=== PATIENT | male | born 1980 | race Two or more races ===

== ENCOUNTER 2019-04-18 16:57 | Emergency (ER) | payer SELFPAY ==
[~2019-04-18] VITALS: Ht 167.6 cm; Wt 68.0 kg
[2019-04-18 17:00] VITALS: BP 142/93
--- NOTE | 2019-04-18 17:38 | PHYS DOC ---
Past Medical History Past Medical History: No Pertinent History Past Surgical History: No Surgical History Alcohol Use: Heavy Drug Use: None Adult General Chief Complaint Chief Complaint: HAND PROBLEM HPI HPI Patient is a 38 year old male that presents with right wrist pain has been ongoing since Friday. The patient states that on Friday he slammed his wrist in a door. Pain is 5 out of 10 in severity. Review of Systems Review of Systems Constitutional: Denies fever or chills [] Eyes: Denies change in visual acuity, redness, or eye pain [] HENT: Denies nasal congestion or sore throat [] Respiratory: Denies cough or shortness of breath [] Cardiovascular: No additional information not addressed in HPI [] GI: Denies abdominal pain, nausea, vomiting, bloody stools or diarrhea [] : Denies dysuria or hematuria [] Musculoskeletal: Reports R wrist pain. Integument: Denies rash or skin lesions [] Neurologic: Denies headache, focal weakness or sensory changes [] Endocrine: Denies polyuria or polydipsia [] Complete systems were reviewed and found to be within normal limits, except as documented in this note. Allergies Allergies Allergies Coded Allergies Type Severity Reaction Last Updated Verified No Known Drug Allergies 11/29/15 No Physical Exam Physical Exam Constitutional: Well developed, well nourished, no acute distress, non-toxic a ppearance. [] HENT: Normocephalic, atraumatic, bilateral external ears normal, oropharynx moist, no oral exudates, nose normal. [] Eyes: PERRLA, EOMI, conjunctiva normal, no discharge. [] Neck: Normal range of motion, no tenderness, supple, no stridor. [] Cardiovascular:Heart rate regular rhythm, no murmur [] Lungs & Thorax: Bilateral breath sounds clear to auscultation [] Abdomen: Bowel sounds normal, soft, no tenderness, no masses, no pulsatile masses. [] Skin: Warm, dry, no erythema, no rash. [] Back: No tenderness, no CVA tenderness. [] Extremities: Edema and tenderness to R wrist. Has snuff box tenderness. Neurologic: Alert and oriented X 3, normal motor function, normal sensory function, no focal deficits noted. [] Psychologic: Affect normal, judgement normal, mood normal. [] Current Patient Data Vital Signs Vital Signs Date Time Temp Pulse Resp B/P (MAP) Pulse Ox O2 Delivery O2 Flow Rate FiO2 04/18/19 17:00 99.1 63 16 142/93 (109) 96 Room Air 99.1 EKG EKG [] Radiology/Procedures Radiology/Procedures [][facility] [address] [place] [address] IMAGING REPORT Signed PATIENT: MANUEL DUMONTACCOUNT: [id number] : 1980 LOCATION: ER AGE: 38 SEX: M EXAM STATUS: REG ER ORD. PHYSICIAN: LANI CHIANG APRN REASON: wrist trauma, PT INDICATED PAIN LOCATION IS MEADIAL ULNAR WRIST PAIN PROCEDURE: WRIST 3V RIGHT Exam: Right wrist 3 views INDICATION: Trauma TECHNIQUE: Frontal, lateral and oblique views of the right wrist Comparisons: None FINDINGS: Mildly displaced ossific density in the posterior carpus seen best on lateral view. Subtle linear lucency at the ulnar styloid. Joint spaces are well-maintained. Soft tissues are unremarkable. Bone mineralization is normal. IMPRESSION: 1. Findings likely representing minimally displaced triquetral fracture 2. Subtle linear lucency at the ulnar styloid may represent nondisplaced fracture. Correlate with point tenderness. Electronically signed by: Kathy Pang MD (04/18/2019 5:45 PM) [facility] DICTATED and SIGNED BY: KATHY PANG MD DATE: 04/18/19 4215 Course & Med Decision Making Course & Med Decision Making Pertinent Labs and Imaging studies reviewed. (See chart for details) Will get imaging. Findings likely representing minimally displaced triquetral fracture 2. Subtle linear lucency at the ulnar styloid may represent nondisplaced fracture. Correlate with point tenderness. Will place in splint and have follow up with ortho. [place] Disclaimer Dragon Disclaimer This electronic medical record was generated, in whole or in part, using a voice recognition dictation system. Departure Departure Impression: Primary Impression: Triquetral fracture Disposition: 01 HOME, SELF-CARE Condition: STABLE Referrals: NO PCP (PCP) ROSINA BATES II, MD Patient Instructions: Wrist Fracture Additional Instructions: Thank you for visiting [facility]. We appreciate you trusting us with your care. If any additional problems come up don't hesitate to return to visit us. Please follow up with your primary care provider so they can plan additional care if needed and know about the problem that you had. If symptoms worsen come back to the Emergency Department. Any concerning symptoms that start such as chest pain, shortness of air, weakness or numbness on one side of the body, running high fevers or any other concerning symptoms return to the ER. Please fill your medications at any pharmacy and follow the prescription instructions. Please follow up with orthopedic doctor this week. Scripts Hydrocodone/Apap 5-325 (NORCO 5-325 TABLET) 1 Each Tablet 1 TAB PO PRN Q6HRS PRN for PAIN for 3 Days, #10 TAB 0 Refills Prov: LANI CHIANG APRN 04/18/19 Problem Qualifiers Primary Impression: Triquetral fracture Encounter type: initial encounter Fracture type: closed Fracture alignme nt: nondisplaced Laterality: right Qualified Codes: S62.114A - Nondispl aced fracture of triquetrum [cuneiform] bone, right wrist, initial encounter for closed fracture LANI CHIANG APRN Apr 18, 2019 17:38
--- NOTE | 2019-04-18 17:48 | RAD ---
Exam: Right wrist 3 views INDICATION: Trauma TECHNIQUE: Frontal, lateral and oblique views of the right wrist Comparisons: None FINDINGS: Mildly displaced ossific density in the posterior carpus seen best on lateral view. Subtle linear lucency at the ulnar styloid. Joint spaces are well-maintained. Soft tissues are unremarkable. Bone mineralization is normal. IMPRESSION: 1. Findings likely representing minimally displaced triquetral fracture 2. Subtle linear lucency at the ulnar styloid may represent nondisplaced fracture. Correlate with point tenderness. Electronically signed by: Kathy Freeman MD (04/18/2019 5:45 PM) [facility]
[2019-04-18] MEDS ORDERED: HYDR-3164 PO (18:06)
== END 2019-04-18 18:26 | disposition home or self-care (01) ==
LOC: ER 16:57
DX: S62.114A Nondisplaced fracture of triquetrum [cuneiform] bone, right wrist, initial encounter for closed fracture (principal); F10.20 Alcohol dependence, uncomplicated; Y90.9 Presence of alcohol in blood, level not specified; W22.8XXA Striking against or struck by other objects, initial encounter; Y93.89 Activity, other specified; Y92.89 Other specified places as the place of occurrence of the external cause; Y99.8 Other external cause status
CPT/HCPCS: 29125; 73110; 99284

== ENCOUNTER 2019-05-23 15:42 | Inpatient (IN) | payer SELFPAY ==
[~2019-05-23] VITALS: Ht 165.1 cm; Wt 68.0 kg
[~2019-05-23 15:42] MED LIST: HYDR-3164 PO
--- NOTE | 2019-05-23 15:58 | PHYS DOC ---
Past Medical History Past Medical History: No Pertinent History (LUKE CHIANG APRN) Past Surgical History: No Surgical History (LUKE CHIANG APRN) Alcohol Use: Heavy Drug Use: None (LUKE CHIANG APRN) Attending Signature I have participated in the care of this patient and I have reviewed and agree with all pertinent clinical information above including history, exam, and recommendations. (RONEN JAMESON MD) Adult General Chief Complaint Chief Complaint: LOWER EXTREMITY SWELLING HPI HPI Patient is a 38 year old male that presents to the emergency department for left knee pain that started this morning when he woke up. He is unable to bend his left knee and complains of pain and swelling to the knee. The knee is also warm to touch. He rates his pain as 10 out of 10 in severity and sharp and throbbing. Denies any medical history, denies any trauma to the knee. (LUKE CHIANG APRN) Review of Systems Review of Systems Constitutional: Denies fever or chills [] Eyes: Denies change in visual acuity, redness, or eye pain [] HENT: Denies nasal congestion or sore throat [] Respiratory: Denies cough or shortness of breath [] Cardiovascular: No additional information not addressed in HPI [] GI: Denies abdominal pain, nausea, vomiting, bloody stools or diarrhea [] : Denies dysuria or hematuria [] Musculoskeletal: Reports L knee pain. Integument: Denies rash or skin lesions [] Neurologic: Denies headache, focal weakness or sensory changes [] Endocrine: Denies polyuria or polydipsia [] Complete systems were reviewed and found to be within normal limits, except as documented in this note. (LUKE CHIANG APRN) Current Medications Current Medications Current Medications Medications (Trade) Dose Ordered Sig/Heidy Start Time Stop Time Status Last Admin Dose Admin Colchicine (Colcrys) 1.2 mg 1X STAT 05/23/19 17:45 05/23/19 17:51 DC 05/23/19 17:58 1.2 MG Ketorolac Tromethamine (Toradol 30mg Vial) 30 mg 1X ONCE 05/23/19 17:45 05/23/19 17:51 DC 05/23/19 17:58 30 MG Lidocaine HCl 20 ml 1X ONCE 05/23/19 16:30 05/23/19 16:31 DC 05/23/19 16:15 20 ML Morphine Sulfate (Morphine Sulfate) 4 mg 1X ONCE 05/23/19 16:15 05/23/19 16:16 DC 05/23/19 16:13 4 MG Sodium Chloride 1,000 ml @ 1,000 mls/hr 1X ONCE 05/23/19 16:00 05/23/19 16:59 DC 05/23/19 16:15 1,000 MLS/HR (RONEN JAMESON MD) Allergies Allergies Allergies Coded Allergies Type Severity Reaction Last Updated Verified No Known Drug Allergies 11/29/15 No (RONEN JAMESON MD) Physical Exam Physical Exam Constitutional: Well developed, well nourished, no acute distress, non-toxic appearance. [] HENT: Normocephalic, atraumatic, bilateral external ears normal, oropharynx moist, no oral exudates, nose normal. [] Eyes: PERRLA, EOMI, conjunctiva normal, no discharge. [] Neck: Normal range of motion, no tenderness, supple, no stridor. [] Cardiovascular:Heart rate regular rhythm, no murmur [] Lungs & Thorax: Bilateral breath sounds clear to auscultation [] Abdomen: Bowel sounds normal, soft, no tenderness, no masses, no pulsatile masses. [] Skin: Warm, dry, no erythema, no rash. [] Back: No tenderness, no CVA tenderness. [] Extremities: Tenderness to left knee with edema, erythema, and warmth. Reduced range of motion. Neurologic: Alert and oriented X 3, normal motor function, normal sensory fun ction, no focal deficits noted. [] Psychologic: Affect normal, judgement normal, mood normal. [] (LUKE CHIANG APRN) Current Patient Data Vital Signs Vital Signs Date Time Temp Pulse Resp B/P (MAP) Pulse Ox O2 Delivery O2 Flow Rate FiO2 05/23/19 17:47 70 14 130/94 (106) 97 Room Air 05/23/19 15:45 99.6 99.6 (RONEN JAMESON MD) Lab Values Laboratory Tests Test 05/23/19 16:00 05/23/19 16:20 White Blood Count 11.4 x10^3/uL (4.0-11.0) H Red Blood Count 4.81 x10^6/uL (4.30-5.70) Hemoglobin 15.3 g/dL (13.0-17.5) Hematocrit 44.0 % (39.0-53.0) Mean Corpuscular Volume 91 fL (79-100) Mean Corpuscular Hemoglobin 32 pg (25-35) Mean Corpuscular Hemoglobin Concent 35 g/dL (31-37) Red Cell Distribution Width 13.0 % (11.5-14.5) Platelet Count 250 x10^3/uL (140-400) Neutrophils (%) (Auto) 78 % (31-73) H Lymphocytes (%) (Auto) 11 % (24-48) L Monocytes (%) (Auto) 10 % (0-9) H Eosinophils (%) (Auto) 0 % (0-3) Basophils (%) (Auto) 1 % (0-3) Neutrophils # (Auto) 8.9 x10^3/uL (1.8-7.7) H Lymphocytes # (Auto) 1.3 x10^3/uL (1.0-4.8) Monocytes # (Auto) 1.1 x10^3/uL (0.0-1.1) Eosinophils # (Auto) 0.0 x10^3/uL (0.0-0.7) Basophils # (Auto) 0.1 x10^3/uL (0.0-0.2) Sodium Level 143 mmol/L (136-145) Potassium Level 3.8 mmol/L (3.5-5.1) Chloride Level 104 mmol/L (98-107) Carbon Dioxide Level 25 mmol/L (21-32) Anion Gap 14 (6-14) Blood Urea Nitrogen 8 mg/dL (8-26) Creatinine 1.0 mg/dL (0.7-1.3) Estimated GFR (Cockcroft-Gault) 83.6 BUN/Creatinine Ratio 8 (6-20) Glucose Level 110 mg/dL (70-99) H Lactic Acid Level 1.3 mmol/L (0.4-2.0) Uric Acid 8.7 mg/dL (3.5-7.2) H Calcium Level 9.1 mg/dL (8.5-10.1) Total Bilirubin 0.9 mg/dL (0.2-1.0) Aspartate Amino Transferase (AST) 47 U/L (15-37) H Alanine Aminotransferase (ALT) 82 U/L (16-63) H Alkaline Phosphatase 110 U/L (46-116) Total Protein 8.2 g/dL (6.4-8.2) Albumin 4.3 g/dL (3.4-5.0) Albumin/Globulin Ratio 1.1 (1.0-1.7) Body Fluid Source Synovial Body Fluid Color Yellow Body Fluid Clarity Turbid Body Fluid Nucleated Cells 05619 /cmm (Not Body Fluid Mononuclear WBCs (%) 6 % Body Fluid Polymorphonuclear Cells 94 % Body Fluid Total RBCs Counted 520 /cmm (Not Established) Laboratory Tests 05/23/19 16:00 Laboratory Tests 05/23/19 16:00 (RONEN JAMESON MD) Lab Values Laboratory Tests Test 05/23/19 16:00 05/23/19 16:20 White Blood Count 11.4 x10^3/uL (4.0-11.0) H Red Blood Count 4.81 x10^6/uL (4.30-5.70) Hemoglobin 15.3 g/dL (13.0-17.5) Hematocrit 44.0 % (39.0-53.0) Mean Corpuscular Volume 91 fL (79-100) Mean Corpuscular Hemoglobin 32 pg (25-35) Mean Corpuscular Hemoglobin Concent 35 g/dL (31-37) Red Cell Distribution Width 13.0 % (11.5-14.5) Platelet Count 250 x10^3/uL (140-400) Neutrophils (%) (Auto) 78 % (31-73) H Lymphocytes (%) (Auto) 11 % (24-48) L Monocytes (%) (Auto) 10 % (0-9) H Eosinophils (%) (Auto) 0 % (0-3) Basophils (%) (Auto) 1 % (0-3) Neutrophils # (Auto) 8.9 x10^3/uL (1.8-7.7) H Lymphocytes # (Auto) 1.3 x10^3/uL (1.0-4.8) Monocytes # (Auto) 1.1 x10^3/uL (0.0-1.1) Eosinophils # (Auto) 0.0 x10^3/uL (0.0-0.7) Basophils # (Auto) 0.1 x10^3/uL (0.0-0.2) Sodium Level 143 mmol/L (136-145) Potassium Level 3.8 mmol/L (3.5-5.1) Chloride Level 104 mmol/L (98-107) Carbon Dioxide Level 25 mmol/L (21-32) Anion Gap 14 (6-14) Blood Urea Nitrogen 8 mg/dL (8-26) Creatinine 1.0 mg/dL (0.7-1.3) Estimated GFR (Cockcroft-Gault) 83.6 BUN/Creatinine Ratio 8 (6-20) Glucose Level 110 mg/dL (70-99) H Lactic Acid Level 1.3 mmol/L (0.4-2.0) Uric Acid 8.7 mg/dL (3.5-7.2) H Calcium Level 9.1 mg/dL (8.5-10.1) Total Bilirubin 0.9 mg/dL (0.2-1.0) Aspartate Amino Transferase (AST) 47 U/L (15-37) H Alanine Aminotransferase (ALT) 82 U/L (16-63) H Alkaline Phosphatase 110 U/L (46-116) Total Protein 8.2 g/dL (6.4-8.2) Albumin 4.3 g/dL (3.4-5.0) Albumin/Globulin Ratio 1.1 (1.0-1.7) Body Fluid Source Synovial Body Fluid Color Yellow Body Fluid Clarity Turbid Body Fluid Nucleated Cells 26230 /cmm (Not Body Fluid Mononuclear WBCs (%) 6 % Body Fluid Polymorphonuclear Cells 94 % Body Fluid Total RBCs Counted 520 /cmm (Not Established) Laboratory Tests 05/23/19 16:00 Laboratory Tests 05/23/19 16:00 (LUKE CHIANG APRN) EKG EKG [] (LUKE CHIANG APRN) Radiology/Procedures Radiology/Procedures Performed a Knee aspiration to the L knee with Dr. Jameson at bedside. Washed knee with Iodine and then injected 3 mL of 2% lidocaine. Aspirated lateral side 22 mL of cloudy yellow fluid. No complications. Sent to labs for cultures. [address] [place] [address] IMAGING REPORT Signed PATIENT: DASIA DUMONTSTEVEACCOUNT: [id number] : 1980 LOCATION: ER AGE: 38 SEX: M EXAM STATUS: REG ER ORD. PHYSICIAN: LUKE CHIANG APRN REASON: l knee pain, edema PROCEDURE: KNEE LEFT 3V 3 view left knee HISTORY: Left knee pain. FINDINGS: Joint spaces are intact. Small density overlying the medial joint compartment on the oblique view is likely overlapping tibial spine. No definite acute fracture is seen. No aggressive bone destruction. May be a suprapatellar joint effusion. Soft tissues are otherwise unremarkable. IMPRESSION: 1. Probable joint effusion. 2. No definite acute fracture. Small bone density overlying the medial tibial plateau on the oblique view is likely overlying tibial spine. 3. Could consider outpatient MRI for further evaluation, particularly if symptoms do not improve. Electronically signed by: Luke Segundo MD (05/23/2019 4:56 PM) [facility] DICTATED and SIGNED BY: LUKE SEGUNDO MD DATE: 05/23/191655 (LUKE CHIANG APRN) Course & Med Decision Making Course & Med Decision Making Pertinent Labs and Imaging studies reviewed. (See chart for details) Will get X-ray, labs, and give supportive care. Will also perform an aspiration of the left knee to send off for cultures. Cells of 55,500 with polymorph # of 94%. Discussed with Dr. Manning who requests admission to rule out septic joint. Will also order Vanc. Uric Acid is 8.7. Discussed with Dr. Perdomo who accepts admission ([id number]). (LUKE CHIANG APRN) Dragon Disclaimer Dragon Disclaimer This electronic medical record was generated, in whole or in part, using a voice recognition dictation system. (LUKE CHIANG APRN) Departure Departure Impression: Primary Impression: Knee pain, left Disposition: ADMITTED INPATIENT Admitting Physician: JERICHO (LUKE CHIANG APRN) Condition: STABLE Referrals: NO PCP (PCP) Problem Qualifiers Primary Impression: Knee pain, left Chronicity: acute Qualified Codes: M25.562 - Pain in left knee LUKE CHIANG APRN May 23, 2019 15:58 RONEN JAMESON MD May 24, 2019 06:52
[2019-05-23] MEDS ORDERED: IV NORMAL SALINE 1000ML BAG 1,000 ML IV ONE (16:00)
[2019-05-23] MEDS ORDERED: MORPHINE SULFATE 4 MG/ML VIAL. IV ONE (16:15)
[2019-05-23 16:21] LABS: BASO # 0.1 x10^3/uL (0.0-0.2); BASO % 1 % (0-3); EOS % 0 % (0-3); HEMOGLOBIN 15.3 g/dL (13.0-17.5); LYMPH # 1.3 x10^3/uL (1.0-4.8); LYMPH % 11 % (24-48); MEAN CORPUSCULAR HEMOGLOBIN 32 pg (25-35); MEAN CORPUSCULAR HGB CONC 35 g/dL (31-37); MEAN CORPUSCULAR VOLUME 91 fL (79-100); MONO # 1.1 x10^3/uL (0.0-1.1); MONO % 10 % (0-9); NEUT # 8.9 x10^3/uL (1.8-7.7); NEUT % 78 % (31-73); PLATELET COUNT 250 x10^3/uL (140-400); RED BLOOD COUNT 4.81 x10^6/uL (4.30-5.70); WHITE BLOOD COUNT 11.4 x10^3/uL (4.0-11.0)
[2019-05-23] MEDS ORDERED: LIDOCAINE 2% 20 ML VIAL. IJ ONE (16:30)
[2019-05-23 16:43] LABS: CALCIUM 9.1 mg/dL (8.5-10.1); GFR 83.6; POTASSIUM 3.8 mmol/L (3.5-5.1)
[2019-05-23 16:49] LABS: ALBUMIN 4.3 g/dL (3.4-5.0); ALBUMIN/GLOBULIN RATIO 1.1 (1.0-1.7); TOTAL BILIRUBIN 0.9 mg/dL (0.2-1.0); TOTAL PROTEIN 8.2 g/dL (6.4-8.2)
--- NOTE | 2019-05-23 16:59 | RAD ---
3 view left knee HISTORY: Left knee pain. FINDINGS: Joint spaces are intact. Small density overlying the medial joint compartment on the oblique view is likely overlapping tibial spine. No definite acute fracture is seen. No aggressive bone destruction. May be a suprapatellar joint effusion. Soft tissues are otherwise unremarkable. IMPRESSION: 1. Probable joint effusion. 2. No definite acute fracture. Small bone density overlying the medial tibial plateau on the oblique view is likely overlying tibial spine. 3. Could consider outpatient MRI for further evaluation, particularly if symptoms do not improve. Electronically signed by: Luke Segundo MD (05/23/2019 4:56 PM) [facility]
[2019-05-23] MEDS ORDERED: KETOROLAC 30 MG/ML VIAL. IM ONE (17:45)
[2019-05-23] MEDS ORDERED: COLCHICINE 0.6 MG TABLET PO STA (17:45)
[2019-05-23 17:46] LABS: BF CLARITY TURBID; BF COLOR YELLOW; BF MON % 6 %; BF PMN % 94 %; BF RBC COUNT 520 /cmm (Not Established); BF SOURCE SYNOVIAL; BF WBC COUNT 55500 /cmm (Not Established)
[2019-05-23] MEDS ORDERED: ACETAMINOPHEN 500 MG TABLET PO PRN (18:15)
[2019-05-23] MEDS ORDERED: HYDROcodone/APAP 5/325MG 1 TAB TABLET PO PRN (18:15)
[2019-05-23] MEDS ORDERED: cloNIDine HCL 0.1 MG TABLET PO PRN (18:15)
[2019-05-23] MEDS ORDERED: ONDANSETRON PF 4 MG/2 ML VIAL. IVP PRN (18:15)
[2019-05-23] MEDS ORDERED: ONDANSETRON PF 4 MG/2 ML VIAL. IV PRN (18:15)
[2019-05-23] MEDS ORDERED: ZOLPIDEM 5 MG TABLET. PO PRN (18:15)
[2019-05-23] MEDS ORDERED: MORPHINE SULFATE 2 MG/ML VIAL. IV PRN ×2 (18:15)
[2019-05-23] MEDS ORDERED: VANCOMYCIN 1.75 GM in IV NORMAL SALINE 500ML BAG 500 ML IV ONE (18:30)
[2019-05-23 19:00] VITALS: BP 112/77
--- NOTE | 2019-05-23 19:38 | PDOC1 ---
History and Physical Date of Admission Date of Admission DATE: 05/23/19 TIME: 19:33 Identification/Chief Complaint Chief Complaint left knee pain upon waking up Source Source: Caregiver, Chart review, Patient History of Present Illness History of Present Illness make but speaks some croatian, he woke up this AM with acute left knee pain, no trauma or injury, NO signif similar episodes, NO home meds to reconcile. 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 and drained approx 20 cc turbid yellow fluid and sent to lab with crystal etc to check, uric acid in serum 8,.7, no hx gout known, GIven colcrys 1.2 and empiric abx for "septic joint' Past Medical History Cardiovascular: No pertinent hx Pulmonary: No pertinent hx GI: No pertinent hx Heme/Onc: No pertinent hx Hepatobiliary: No pertinent hx Psych: No pertinent hx Rheumatologic: No pertinent hx Infectious disease: No pertinent hx ENT: No pertinent hx Renal/: No pertinent hx Endocrine: No pertinent hx Dermatology: No pertinent hx Past Surgical History Past Surgical History: No pertinent history Family History Family History: No Significant Social History Smoke: No ALCOHOL: none Drugs: None Current Problem List Problem List Problems Medical Problems: (1) Knee pain, left Status: Acute Current Medications Current Medications Current Medications Morphine Sulfate (Morphine Sulfate) 4 mg 1X ONCE IV Last administered on 05/23/19at 16:13; Start 05/23/19 at 16:15; Stop 05/23/19 at 16:16; Status DC Sodium Chloride 1,000 ml @ 1,000 mls/hr 1X ONCE IV Last administered on 05/23/19at 16:15; Start 05/23/19 at 16:00; Stop 05/23/19 at 16:59; Status DC Lidocaine HCl 20 ml 1X ONCE IJ Last administered on 05/23/19at 16:15; Start 1 at 16:30; Stop 05/23/19 at 16:31; Status DC Colchicine (Colcrys) 1.2 mg 1X STAT PO Last administered on 05/23/19at 17:58; Start 05/23/19 at 17:45; Stop 05/23/19 at 17:51; Status DC Ketorolac Tromethamine (Toradol 30mg Vial) 30 mg 1X ONCE IM Last administered on 10/13/19at 17:58; Start 05/23/19 at 17:45; Stop 05/23/19 at 17:51; Status DC Vancomycin HCl (Vanco Per Pharmacy) 1 each PRN DAILY PRN MC SEE COMMENTS; Start 05/23/19 at 18:15; Status UNV Naproxen (Naprosyn) 500 mg BID PO ; Start 05/23/19 at 21:00 Acetaminophen/ Hydrocodone Bitart (Lortab 5/325) 1 tab PRN Q6HRS PRN PO MODERATE-SEVERE PAIN; Start 05/23/19 at 18:15 Acetaminophen (Tylenol) 500 mg PRN Q6HRS PRN PO MILD PAIN / TEMP; Start 05/23/19 at 18:15 Ondansetron HCl (Zofran) 4 mg PRN Q6HRS PRN IVP NAUSEA/VOMITING; Start 05/23/19 at 18:15 Zolpidem Tartrate (Ambien) 5 mg PRN QHS PRN PO INSOMNIA, MAY REPEAT IN 1HR; Start 05/23/19 at 18:15 Morphine Sulfate (Morphine Sulfate) 2 mg PRN Q2HR PRN IV PAIN; Start 05/23/19 at 18:15 Clonidine HCl (Catapres) 0.1 mg PRN Q1HR PRN PO HYPERTENSION; Start 05/23/19 at 18:15 Ondansetron HCl (Zofran) 4 mg PRN Q8HRS PRN IV NAUSEA/VOMITING; Start 05/23/19 at 18:15; Stop 05/24/19 at 18:14; Status UNV Morphine Sulfate (Morphine Sulfate) 2 mg PRN Q2HR PRN IV PAIN; Start 05/23/19 at 18:15; Stop 05/24/19 at 18:14; Status UNV Vancomycin HCl 1.75 gm/Sodium Chloride 500 ml @ 250 mls/hr 1X ONCE IV ; Start 05/23/19 at 18:30; Stop 05/23/19 at 20:29 Active Scripts Active [place] 5-325 Tablet (Acetaminophen/Hydrocodone Bitart) 1 Each Tablet 1 Tab PO PRN Q6HRS PRN 3 Days Allergies Allergies: Coded Allergies: No Known Drug Allergies (Unverified , 11/29/15) ROS Review of System as per HPI< rest 14 pt neg Physical Exam General: Alert, Oriented X3, Cooperative, No acute distress HEENT: Atraumatic, PERRLA Lungs: Clear to auscultation, Normal air movement Heart: S1S2, RRR, no thrills, no rubs, no gallops Cardiovascular: S1, S2 Abdomen: Normal bowel sounds, Soft, No tenderness, No hepatosplenomegaly, No masses Male Genitals Exam: normal genitalia, normal prostate Rectal Exam: not examined PELVIC: Nml ext genitalia Extremities: No clubbing, No cyanosis, No edema, Normal pulses Skin: Other (left knee mild swelling and aspiration site, lateral knee identifiable, dressing on, full ROM) Neuro: Normal gait, Normal speech, Strength at 5/5 X4 ext, Normal tone, Sensation intact, Cranial nerves 3-12 NL, Reflexes 2+ Psych/Mental Status: Mental status NL, Mood NL Vitals Vitals Vital Signs Date Time Temp Pulse Resp B/P (MAP) Pulse Ox O2 Delivery O2 Flow Rate FiO2 05/23/19 17:47 70 14 130/94 (106) 97 Room Air 05/23/19 15:45 99.6 99.6 Labs Labs Laboratory Tests Test 05/23/19 16:00 05/23/19 16:20 White Blood Count 11.4 x10^3/uL (4.0-11.0) Red Blood Count 4.81 x10^6/uL (4.30-5.70) Hemoglobin 15.3 g/dL (13.0-17.5) Hematocrit 44.0 % (39.0-53.0) Mean Corpuscular Volume 91 fL (79-100) Mean Corpuscular Hemoglobin 32 pg (25-35) Mean Corpuscular Hemoglobin Concent 35 g/dL (31-37) Red Cell Distribution Width 13.0 % (11.5-14.5) Platelet Count 250 x10^3/uL (140-400) Neutrophils (%) (Auto) 78 % (31-73) Lymphocytes (%) (Auto) 11 % (24-48) Monocytes (%) (Auto) 10 % (0-9) Eosinophils (%) (Auto) 0 % (0-3) Basophils (%) (Auto) 1 % (0-3) Neutrophils # (Auto) 8.9 x10^3/uL (1.8-7.7) Lymphocytes # (Auto) 1.3 x10^3/uL (1.0-4.8) Monocytes # (Auto) 1.1 x10^3/uL (0.0-1.1) Eosinophils # (Auto) 0.0 x10^3/uL (0.0-0.7) Basophils # (Auto) 0.1 x10^3/uL (0.0-0.2) Sodium Level 143 mmol/L (136-145) Potassium Level 3.8 mmol/L (3.5-5.1) Chloride Level 104 mmol/L (98-107) Carbon Dioxide Level 25 mmol/L (21-32) Anion Gap 14 (6-14) Blood Urea Nitrogen 8 mg/dL (8-26) Creatinine 1.0 mg/dL (0.7-1.3) Estimated GFR (Cockcroft-Gault) 83.6 BUN/Creatinine Ratio 8 (6-20) Glucose Level 110 mg/dL (70-99) Lactic Acid Level 1.3 mmol/L (0.4-2.0) Uric Acid 8.7 mg/dL (3.5-7.2) Calcium Level 9.1 mg/dL (8.5-10.1) Total Bilirubin 0.9 mg/dL (0.2-1.0) Aspartate Amino Transf (AST/SGOT) 47 U/L (15-37) Alanine Aminotransferase (ALT/SGPT) 82 U/L (16-63) Alkaline Phosphatase 110 U/L (46-116) Total Protein 8.2 g/dL (6.4-8.2) Albumin 4.3 g/dL (3.4-5.0) Albumin/Globulin Ratio 1.1 (1.0-1.7) Body Fluid Source Synovial Body Fluid Color Yellow Body Fluid Clarity Turbid Body Fluid Nucleated Cells 59734 /cmm (Not Body Fluid Mononuclear WBCs (%) 6 % Body Fluid Polymorphonuclear Cells 94 % Body Fluid Total RBCs Counted 520 /cmm (Not Established) Laboratory Tests Test 05/23/19 16:00 05/23/19 16:20 White Blood Count 11.4 x10^3/uL (4.0-11.0) Red Blood Count 4.81 x10^6/uL (4.30-5.70) Hemoglobin 15.3 g/dL (13.0-17.5) Hematocrit 44.0 % (39.0-53.0) Mean Corpuscular Volume 91 fL (79-100) Mean Corpuscular Hemoglobin 32 pg (25-35) Mean Corpuscular Hemoglobin Concent 35 g/dL (31-37) Red Cell Distribution Width 13.0 % (11.5-14.5) Platelet Count 250 x10^3/uL (140-400) Neutrophils (%) (Auto) 78 % (31-73) Lymphocytes (%) (Auto) 11 % (24-48) Monocytes (%) (Auto) 10 % (0-9) Eosinophils (%) (Auto) 0 % (0-3) Basophils (%) (Auto) 1 % (0-3) Neutrophils # (Auto) 8.9 x10^3/uL (1.8-7.7) Lymphocytes # (Auto) 1.3 x10^3/uL (1.0-4.8) Monocytes # (Auto) 1.1 x10^3/uL (0.0-1.1) Eosinophils # (Auto) 0.0 x10^3/uL (0.0-0.7) Basophils # (Auto) 0.1 x10^3/uL (0.0-0.2) Sodium Level 143 mmol/L (136-145) Potassium Level 3.8 mmol/L (3.5-5.1) Chloride Level 104 mmol/L (98-107) Carbon Dioxide Level 25 mmol/L (21-32) Anion Gap 14 (6-14) Blood Urea Nitrogen 8 mg/dL (8-26) Creatinine 1.0 mg/dL (0.7-1.3) Estimated GFR (Cockcroft-Gault) 83.6 BUN/Creatinine Ratio 8 (6-20) Glucose Level 110 mg/dL (70-99) Lactic Acid Level 1.3 mmol/L (0.4-2.0) Uric Acid 8.7 mg/dL (3.5-7.2) Calcium Level 9.1 mg/dL (8.5-10.1) Total Bilirubin 0.9 mg/dL (0.2-1.0) Aspartate Amino Transf (AST/SGOT) 47 U/L (15-37) Alanine Aminotransferase (ALT/SGPT) 82 U/L (16-63) Alkaline Phosphatase 110 U/L (46-116) Total Protein 8.2 g/dL (6.4-8.2) Albumin 4.3 g/dL (3.4-5.0) Albumin/Globulin Ratio 1.1 (1.0-1.7) Body Fluid Source Synovial Body Fluid Color Yellow Body Fluid Clarity Turbid Body Fluid Nucleated Cells 44602 /cmm (Not Body Fluid Mononuclear WBCs (%) 6 % Body Fluid Polymorphonuclear Cells 94 % Body Fluid Total RBCs Counted 520 /cmm (Not Established) VTE Prophylaxis Ordered VTE Prophylaxis Devices: Yes VTE Pharmacological Prophylaxi: Yes Assessment/Plan Assessment/Plan r.o possible septic left knee, difftls include infectious vs inflammatory, CPPD vs gout - await fluid cxs, crystals etc - I did start naproxen BID ANTONI to help with swelling and pain and can treat gout too Elevated uric acid 8.7 - I did start colcrys GIVEN ACUTE nature - seen in gout, empiric abx - i did consult ID - vanc for now Dw at bedside, no home meds to reconcile Reg diet, non tele floor FULL CODE ELISE NAJERA MD May 23, 2019 19:38
[2019-05-23] MEDS: VANCOMYCIN PER PHARMACY MC PRN (20:01)
--- NOTE | 2019-05-23 20:02 | NUR ---
Pharmacy Vancomycin Dosing Note S:Consulted to monitor and dose vancomycin started 05/23/19. O:MANUEL DUMONT is a 38 year old M with R/O SEPTIC JOINT . Height: 5 feet, 5 inches Weight: 68.533264 kg [place] Body Weight: 61.50 Adjusted Body Weight: 64.10 Dosing Weight: Actual Other Antibiotics: LABS: Last BUN: 8 Last Creatinine: 1.0 Creatinine Clearance: 90 mL/min Last WBC: 11.4 Last Procalcitonin: Tmax (past 24 hours): 99.6 Microbiology: I/O: Drug Levels: Last level: on at Last dose given 05/23/19 at 1947 Vancomycin Dosing: Loading Dose: 1750 mg x1 Dosing Weight: Actual Target Trough: 15-20 A: Based on: Body weight and renal function P: 1. After loading dose, start Vancomycin 1000 mg IV q12h 2. Follow up Trough level on 05/25/19 at 0730 3. Pharmacy will continue to monitor, follow and adjust therapy as needed. MASON DREW RPH, 05/23/192001
[2019-05-23] MEDS: NAPROXEN 500 MG TABLET PO SCH (21:04)
[2019-05-23] MEDS ORDERED: diphenhydrAMINE HCL 25 MG CAPSULE PO PRN (22:30)
[2019-05-23 23:00] VITALS: BP 111/70
[2019-05-24 03:00] VITALS: BP 97/66
[2019-05-24 07:00] VITALS: BP 127/79
--- NOTE | 2019-05-24 08:07 | PDOC ---
Infectious Disease Note Vital Sign Vital Signs Vital Signs Date Time Temp Pulse Resp B/P (MAP) Pulse Ox O2 Delivery O2 Flow Rate FiO2 05/24/19 03:00 98.5 64 18 97/66 (76) 97 Room Air 98.5 Labs Lab Laboratory Tests Test 05/23/19 16:00 05/23/19 16:20 White Blood Count 11.4 x10^3/uL (4.0-11.0) Red Blood Count 4.81 x10^6/uL (4.30-5.70) Hemoglobin 15.3 g/dL (13.0-17.5) Hematocrit 44.0 % (39.0-53.0) Mean Corpuscular Volume 91 fL (79-100) Mean Corpuscular Hemoglobin 32 pg (25-35) Mean Corpuscular Hemoglobin Concent 35 g/dL (31-37) Red Cell Distribution Width 13.0 % (11.5-14.5) Platelet Count 250 x10^3/uL (140-400) Neutrophils (%) (Auto) 78 % (31-73) Lymphocytes (%) (Auto) 11 % (24-48) Monocytes (%) (Auto) 10 % (0-9) Eosinophils (%) (Auto) 0 % (0-3) Basophils (%) (Auto) 1 % (0-3) Neutrophils # (Auto) 8.9 x10^3/uL (1.8-7.7) Lymphocytes # (Auto) 1.3 x10^3/uL (1.0-4.8) Monocytes # (Auto) 1.1 x10^3/uL (0.0-1.1) Eosinophils # (Auto) 0.0 x10^3/uL (0.0-0.7) Basophils # (Auto) 0.1 x10^3/uL (0.0-0.2) Sodium Level 143 mmol/L (136-145) Potassium Level 3.8 mmol/L (3.5-5.1) Chloride Level 104 mmol/L (98-107) Carbon Dioxide Level 25 mmol/L (21-32) Anion Gap 14 (6-14) Blood Urea Nitrogen 8 mg/dL (8-26) Creatinine 1.0 mg/dL (0.7-1.3) Estimated GFR (Cockcroft-Gault) 83.6 BUN/Creatinine Ratio 8 (6-20) Glucose Level 110 mg/dL (70-99) Lactic Acid Level 1.3 mmol/L (0.4-2.0) Uric Acid 8.7 mg/dL (3.5-7.2) Calcium Level 9.1 mg/dL (8.5-10.1) Total Bilirubin 0.9 mg/dL (0.2-1.0) Aspartate Amino Transf (AST/SGOT) 47 U/L (15-37) Alanine Aminotransferase (ALT/SGPT) 82 U/L (16-63) Alkaline Phosphatase 110 U/L (46-116) Total Protein 8.2 g/dL (6.4-8.2) Albumin 4.3 g/dL (3.4-5.0) Albumin/Globulin Ratio 1.1 (1.0-1.7) Body Fluid Source Synovial Body Fluid Color Yellow Body Fluid Clarity Turbid Body Fluid Nucleated Cells 81645 /cmm (Not Body Fluid Mononuclear WBCs (%) 6 % Body Fluid Polymorphonuclear Cells 94 % Body Fluid Total RBCs Counted 520 /cmm (Not Established) Objective Assessment pt seen, consult dictated Plan Plan of Care / CHERRIE STACY MD May 24, 2019 08:07
[2019-05-24 08:10] LABS: CREATININE 0.9 mg/dL (0.7-1.3); GFR 94.4
--- NOTE | 2019-05-24 08:40 | PDOC2 ---
CONSULT Date of Consult Date of Consult DATE: 05/24/19 TIME: 08:35 Reason for Consult Reason for Consult: left knee septic joint vs gout Identification/Chief Complaint Chief Complaint left knee pain spontaneous joint swelling Source Source: Chart review History of Present Illness Reason for Visit: I spoke to ER last night who had aspirated cloudy fluid with 55,000 WBCs and 95% polys. Possible septic joint, although uric acid also high, so acute gout flare also in the differential. I recommended admission with empiric antibiotics and plan for arthroscopic lavage. 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 He works in [employer]. No injury to the knee. Spontaneous swelling yesterday. Low-grade temperature. Severe knee pain, inability to walk Past Medical History Cardiovascular: No pertinent hx Pulmonary: No pertinent hx GI: No pertinent hx Heme/Onc: No pertinent hx Hepatobiliary: No pertinent hx Psych: No pertinent hx Rheumatologic: No pertinent hx Infectious disease: No pertinent hx ENT: No pertinent hx Renal/: No pertinent hx Endocrine: No pertinent hx Dermatology: No pertinent hx Past Surgical History Past Surgical History He denies prior surgery via the machine tool operator Past Surgical History: No pertinent history Family History Family History Family history of diabetes per the machine tool operator Family History: Diabetes Social History Social History He lives with his and 1 child. He works in [employer] No ALCOHOL: none Drugs: None Lives: with Family Current Problem List Problem List Problems Medical Problems: (1) Knee pain, left Status: Acute Current Medications Current Medications Current Medications Morphine Sulfate (Morphine Sulfate) 4 mg 1X ONCE IV Last administered on 05/23/19at 16:13; Start 05/23/19 at 16:15; Stop 05/23/19 at 16:16; Status DC Sodium Chloride 1,000 ml @ 1,000 mls/hr 1X ONCE IV Last administered on 05/23/19at 16:15; Start 05/23/19 at 16:00; Stop 05/23/19 at 16:59; Status DC Lidocaine HCl 20 ml 1X ONCE IJ Last administered on 05/23/19at 16:15; Start 05/23/19 at 16:30; Stop 05/23/19 at 16:31; Status DC Colchicine (Colcrys) 1.2 mg 1X STAT PO Last administered on 05/23/19at 17:58; Start 05/23/19 at 17:45; Stop 05/23/19 at 17:51; Status DC Ketorolac Tromethamine (Toradol 30mg Vial) 30 mg 1X ONCE IM Last administered on 05/23/19at 17:58; Start 05/23/19 at 17:45; Stop 05/23/19 at 17:51; Status DC Vancomycin HCl (Vanco Per Pharmacy) 1 each PRN DAILY PRN MC SEE COMMENTS Last administered on 05/23/19at 20:01; Start 05/23/19 at 18:15 Naproxen (Naprosyn) 500 mg BID PO Last administered on 05/23/19at 21:04; Start 05/23/19 at 21:00 Acetaminophen/ Hydrocodone Bitart (Lortab 5/325) 1 tab PRN Q6HRS PRN PO MODERATE-SEVERE PAIN; Start 05/23/19 at 18:15 Acetaminophen (Tylenol) 500 mg PRN Q6HRS PRN PO MILD PAIN / TEMP; Start 05/23/19 at 18:15 Ondansetron HCl (Zofran) 4 mg PRN Q6HRS PRN IVP NAUSEA/VOMITING; Start 05/23/19 at 18:15 Zolpidem Tartrate (Ambien) 5 mg PRN QHS PRN PO INSOMNIA, MAY REPEAT IN 1HR; Start 05/23/19 at 18:15 Morphine Sulfate (Morphine Sulfate) 2 mg PRN Q2HR PRN IV PAIN Last administered on 05/23/19at 21:05; Start 05/23/19 at 18:15 Clonidine HCl (Catapres) 0.1 mg PRN Q1HR PRN PO HYPERTENSION; Start 05/23/19 at 18:15 Ondansetron HCl (Zofran) 4 mg PRN Q8HRS PRN IV NAUSEA/VOMITING; Start 05/23/19 at 18:15; Stop 05/24/19 at 18:14; Status UNV Morphine Sulfate (Morphine Sulfate) 2 mg PRN Q2HR PRN IV PAIN; Start 05/23/19 at 18:15; Stop 05/24/19 at 18:14; Status UNV Vancomycin HCl 1.75 gm/Sodium Chloride 500 ml @ 250 mls/hr 1X ONCE IV Last administered on 05/23/19at 19:47; Start 05/23/19 at 18:30; Stop 05/23/19 at 20:29; Status DC Colchicine (Colcrys) 0.6 mg DAILY PO ; Start 05/24/19 at 09:00 Vancomycin HCl 1 gm/Sodium Chloride 250 ml @ 250 mls/hr Q12H IV ; Start 05/24/19 at 08:00 Vancomycin HCl (Vancomycin Trough Level) 1 each 1X ONCE MC ; Start 05/25/19 at 07:30; Stop 05/25/19 at 07:31 Diphenhydramine HCl (Benadryl) 25 mg PRN Q6HRS PRN PO ITCHING Last administered on 05/23/19at 22:40; Start 05/23/19 at 22:30 Influenza Virus Vaccine Quadrival (Afluria Quad 2019-20 (3yr Up) Syringe) 0.5 ml ONCE ONCE VAX IM ; Start 05/24/19 at 09:00; Stop 05/24/19 at 09:01 Cefepime HCl (Maxipime) 1 gm Q12HR IVP ; Start 05/24/19 at 09:00 Active Scripts Active [place] 5-325 Tablet (Acetaminophen/Hydrocodone Bitart) 1 Each Tablet 1 Tab PO PRN Q6HRS PRN 3 Days Allergies Allergies: Coded Allergies: No Known Drug Allergies (Unverified , 11/29/15) ROS Hematological and Lymphatic: No: Blood Clots Respiratory: No: Cough, SOB with excertion Cardiovascular: No Chest Pain Gastrointestinal: No Nausea, No Vomiting, No Diarrhea Musculoskeletal: Yes Joint Pain, Yes Joint Swelling Physical Exam General: Alert, Cooperative HEENT: Atraumatic Lungs: Normal air movement Heart: Regular rate Abdomen: Soft Extremities: Other (there is a left knee effusion and slight warmth. There was no traumatic wound, there is slight blood from the aspiration site on the lateral knee. There is not any focal prepatellar bursitis or bursal swelling, this all seems to be joint swelling/joint effusion. The knee is tender and slightly warm but not erythematous. Distal light touch sensation is intact. Minimal motion to the knee, any motion is painful. Sensory and motor function seem intact but motor function is limited by pain) Skin: No breakdown, No significant lesion Neuro: Normal speech, Sensation intact Vitals VITALS Vital Signs Date Time Temp Pulse Resp B/P (MAP) Pulse Ox O2 Delivery O2 Flow Rate FiO2 05/24/19 03:00 98.5 64 18 97/66 (76) 97 Room Air 98.5 Labs Labs Laboratory Tests Test 05/23/19 16:00 05/23/19 16:20 05/24/19 06:55 White Blood Count 11.4 x10^3/uL (4.0-11.0) Red Blood Count 4.81 x10^6/uL (4.30-5.70) Hemoglobin 15.3 g/dL (13.0-17.5) Hematocrit 44.0 % (39.0-53.0) Mean Corpuscular Volume 91 fL (79-100) Mean Corpuscular Hemoglobin 32 pg (25-35) Mean Corpuscular Hemoglobin Concent 35 g/dL (31-37) Red Cell Distribution Width 13.0 % (11.5-14.5) Platelet Count 250 x10^3/uL (140-400) Neutrophils (%) (Auto) 78 % (31-73) Lymphocytes (%) (Auto) 11 % (24-48) Monocytes (%) (Auto) 10 % (0-9) Eosinophils (%) (Auto) 0 % (0-3) Basophils (%) (Auto) 1 % (0-3) Neutrophils # (Auto) 8.9 x10^3/uL (1.8-7.7) Lymphocytes # (Auto) 1.3 x10^3/uL (1.0-4.8) Monocytes # (Auto) 1.1 x10^3/uL (0.0-1.1) Eosinophils # (Auto) 0.0 x10^3/uL (0.0-0.7) Basophils # (Auto) 0.1 x10^3/uL (0.0-0.2) Sodium Level 143 mmol/L (136-145) Potassium Level 3.8 mmol/L (3.5-5.1) Chloride Level 104 mmol/L (98-107) Carbon Dioxide Level 25 mmol/L (21-32) Anion Gap 14 (6-14) Blood Urea Nitrogen 8 mg/dL (8-26) Creatinine 1.0 mg/dL (0.7-1.3) 0.9 mg/dL (0.7-1.3) Estimated GFR (Cockcroft-Gault) 83.6 94.4 BUN/Creatinine Ratio 8 (6-20) Glucose Level 110 mg/dL (70-99) Lactic Acid Level 1.3 mmol/L (0.4-2.0) Uric Acid 8.7 mg/dL (3.5-7.2) Calcium Level 9.1 mg/dL (8.5-10.1) Total Bilirubin 0.9 mg/dL (0.2-1.0) Aspartate Amino Transf (AST/SGOT) 47 U/L (15-37) Alanine Aminotransferase (ALT/SGPT) 82 U/L (16-63) Alkaline Phosphatase 110 U/L (46-116) Total Protein 8.2 g/dL (6.4-8.2) Albumin 4.3 g/dL (3.4-5.0) Albumin/Globulin Ratio 1.1 (1.0-1.7) Body Fluid Source Synovial Body Fluid Color Yellow Body Fluid Clarity Turbid Body Fluid Nucleated Cells 79948 /cmm (Not Body Fluid Mononuclear WBCs (%) 6 % Body Fluid Polymorphonuclear Cells 94 % Body Fluid Total RBCs Counted 520 /cmm (Not Established) Laboratory Tests Test 05/23/19 16:00 05/23/19 16:20 05/24/19 06:55 White Blood Count 11.4 x10^3/uL (4.0-11.0) Red Blood Count 4.81 x10^6/uL (4.30-5.70) Hemoglobin 15.3 g/dL (13.0-17.5) Hematocrit 44.0 % (39.0-53.0) Mean Corpuscular Volume 91 fL (79-100) Mean Corpuscular Hemoglobin 32 pg (25-35) Mean Corpuscular Hemoglobin Concent 35 g/dL (31-37) Red Cell Distribution Width 13.0 % (11.5-14.5) Platelet Count 250 x10^3/uL (140-400) Neutrophils (%) (Auto) 78 % (31-73) Lymphocytes (%) (Auto) 11 % (24-48) Monocytes (%) (Auto) 10 % (0-9) Eosinophils (%) (Auto) 0 % (0-3) Basophils (%) (Auto) 1 % (0-3) Neutrophils # (Auto) 8.9 x10^3/uL (1.8-7.7) Lymphocytes # (Auto) 1.3 x10^3/uL (1.0-4.8) Monocytes # (Auto) 1.1 x10^3/uL (0.0-1.1) Eosinophils # (Auto) 0.0 x10^3/uL (0.0-0.7) Basophils # (Auto) 0.1 x10^3/uL (0.0-0.2) Sodium Level 143 mmol/L (136-145) Potassium Level 3.8 mmol/L (3.5-5.1) Chloride Level 104 mmol/L (98-107) Carbon Dioxide Level 25 mmol/L (21-32) Anion Gap 14 (6-14) Blood Urea Nitrogen 8 mg/dL (8-26) Creatinine 1.0 mg/dL (0.7-1.3) 0.9 mg/dL (0.7-1.3) Estimated GFR (Cockcroft-Gault) 83.6 94.4 BUN/Creatinine Ratio 8 (6-20) Glucose Level 110 mg/dL (70-99) Lactic Acid Level 1.3 mmol/L (0.4-2.0) Uric Acid 8.7 mg/dL (3.5-7.2) Calcium Level 9.1 mg/dL (8.5-10.1) Total Bilirubin 0.9 mg/dL (0.2-1.0) Aspartate Amino Transf (AST/SGOT) 47 U/L (15-37) Alanine Aminotransferase (ALT/SGPT) 82 U/L (16-63) Alkaline Phosphatase 110 U/L (46-116) Total Protein 8.2 g/dL (6.4-8.2) Albumin 4.3 g/dL (3.4-5.0) Albumin/Globulin Ratio 1.1 (1.0-1.7) Body Fluid Source Synovial Body Fluid Color Yellow Body Fluid Clarity Turbid Body Fluid Nucleated Cells 65921 /cmm (Not Body Fluid Mononuclear WBCs (%) 6 % Body Fluid Polymorphonuclear Cells 94 % Body Fluid Total RBCs Counted 520 /cmm (Not Established) Images Images Report reviewed, images independently reviewed. [facility] [address] [place], [place] [id number] IMAGING REPORT Signed PATIENT: DASIA DUMONTSTEVEACCOUNT: [id number] : 1980 LOCATION: ER AGE: 38 SEX: M EXAM STATUS: REG ER ORD. PHYSICIAN: LUKE CHIANG APRN REASON: l knee pain, edema PROCEDURE: KNEE LEFT 3V 3 view left knee HISTORY: Left knee pain. FINDINGS: Joint spaces are intact. Small density overlying the medial joint compartment on the oblique view is likely overlapping tibial spine. No definite acute fracture is seen. No aggressive bone destruction. May be a suprapatellar joint effusion. Soft tissues are otherwise unremarkable. IMPRESSION: 1. Probable joint effusion. 2. No definite acute fracture. Small bone density overlying the medial tibial plateau on the oblique view is likely overlying tibial spine. 3. Could consider outpatient MRI for further evaluation, particularly if symptoms do not improve. Electronically signed by: Luke Segundo MD (05/23/2019 4:56 PM) [facility] DICTATED and SIGNED BY: LUKE SEGUNDO MD DATE: 05/23/19 5839 Assessment/Plan Assessment/Plan Plan for left knee arthroscopy for infection, lavage and drainage today. I spoke to the patient via the machine tool operator about the differential which includes a septic knee joint, or severe gout attack. Arthroscopic lavage will make the knee feel better regardless of the diagnosis, and is definitely needed if the knee is infected which I believe it is. He would also need intravenous antibiotics for infection. I recommended he stay in the hospital on IV antibiotics until final cultures are obtained, and we can discharge him on the appropriate antibiotic. If all cultures remain negative and crystals are seen, than we would consider treatment for gout but his knee will feel a lot better with lavage of gout crystals. We talked about the potential risks of ongoing infection, scarring, bleeding, blood clots, or other potential surgical or anesthetic complications. He seemed most worried about having an anesthetic and that he would not wake up but I reassured him that general anesthesia in 2019 is relatively safe and I don't predict any issues with anesthesia. The left knee was marked by me. All of his questions about surgery were answered. He desires to proceed. Written consent was obtained. YANNICK CERVANTES MD May 24, 2019 08:40
[2019-05-24] MEDS: NAPROXEN 500 MG TABLET PO SCH ×2 (09:00→21:15)
[2019-05-24] MEDS ORDERED: FLU VAX QS 2019-20 (36MOS+)/PF 0.5 ML SYRINGE. VAX IM ONE (09:00)
[2019-05-24] MEDS ORDERED: COLCHICINE 0.6 MG TABLET PO SCH (09:00)
[2019-05-24] MEDS ORDERED: IV RINGERS,LACTATED 1000ML 1,000 ML IV SCH (09:03)
[2019-05-24] MEDS ORDERED: MORPHINE SULFATE 2 MG/ML VIAL. IV PRN (09:15)
[2019-05-24] MEDS ORDERED: fentaNYL PF VIAL 100 MCG/2 ML VIAL IV PRN ×2 (09:15)
[2019-05-24] MEDS ORDERED: HYDROmorphone 2 MG/ML VIAL IV PRN (09:15)
[2019-05-24] MEDS ORDERED: PROCHLORPERAZINE 10 MG/2 ML VIAL. IV PRN (09:15)
[2019-05-24] MEDS ORDERED: ONDANSETRON PF 4 MG/2 ML VIAL. IV PRN (09:15)
[2019-05-24] MEDS: CEFEPIME HCL IV Push 1 GM VIAL. IVP SCH ×2 (10:04→21:15)
[2019-05-24] MEDS: VANCOMYCIN 1 GM in IV NORMAL SALINE 250ML 250 ML IV SCH ×2 (10:04→20:03)
--- NOTE | 2019-05-24 10:26 | PDOC2 ---
CONSULT Date of Consult Date of Consult DATE: 05/24/19 TIME: 10:04 Reason for Consult Reason for Consult: Painful right knee since yesterday morning, when he awakened with painful, swollen knee with no reported trauma. Referring Physician Referring Physician: Dr Perdomo Identification/Chief Complaint Chief Complaint Painful right knee with swelling, erythema, and pain. Patient seen in ER and had aspiration of knee with reported yellow drainage. Source Source: Caregiver, Chart review, Patient History of Present Illness Reason for Visit: Possible infected right knee. Past Medical History Cardiovascular: No pertinent hx Pulmonary: No pertinent hx GI: No pertinent hx Heme/Onc: No pertinent hx Hepatobiliary: No pertinent hx Psych: No pertinent hx Rheumatologic: No pertinent hx Infectious disease: No pertinent hx ENT: No pertinent hx Renal/: No pertinent hx Endocrine: No pertinent hx Dermatology: No pertinent hx Past Surgical History Past Surgical History: No pertinent history Family History Family History: Alcohol Abuse, No Significant Social History No ALCOHOL: none Drugs: None Current Problem List Problem List Problems Medical Problems: (1) Knee pain, left Status: Acute Current Medications Current Medications Current Medications Morphine Sulfate (Morphine Sulfate) 4 mg 1X ONCE IV Last administered on 05/23/19at 16:13; Start 05/23/19 at 16:15; Stop 05/23/19 at 16:16; Status DC Sodium Chloride 1,000 ml @ 1,000 mls/hr 1X ONCE IV Last administered on 05/23/19at 16:15; Start 05/23/19 at 16:00; Stop 05/23/19 at 16:59; Status DC Lidocaine HCl 20 ml 1X ONCE IJ Last administered on 05/23/19at 16:15; Start 05/23/19 at 16:30; Stop 05/23/19 at 16:31; Status DC Colchicine (Colcrys) 1.2 mg 1X STAT PO Last administered on 05/23/19at 17:58; Start 05/23/19 at 17:45; Stop 05/23/19 at 17:51; Status DC Ketorolac Tromethamine (Toradol 30mg Vial) 30 mg 1X ONCE IM Last administered on 05/23/19at 17:58; Start 05/23/19 at 17:45; Stop 05/23/19 at 17:51; Status DC Vancomycin HCl (Vanco Per Pharmacy) 1 each PRN DAILY PRN MC SEE COMMENTS Last administered on 05/23/19at 20:01; Start 05/23/19 at 18:15 Naproxen (Naprosyn) 500 mg BID PO Last administered on 05/23/19at 21:04; Start 05/23/19 at 21:00 Acetaminophen/ Hydrocodone Bitart (Lortab 5/325) 1 tab PRN Q6HRS PRN PO MODERATE-SEVERE PAIN; Start 05/23/19 at 18:15 Acetaminophen (Tylenol) 500 mg PRN Q6HRS PRN PO MILD PAIN / TEMP; Start 05/23/19 at 18:15 Ondansetron HCl (Zofran) 4 mg PRN Q6HRS PRN IVP NAUSEA/VOMITING; Start 05/23/19 at 18:15 Zolpidem Tartrate (Ambien) 5 mg PRN QHS PRN PO INSOMNIA, MAY REPEAT IN 1HR; Start 05/23/19 at 18:15 Morphine Sulfate (Morphine Sulfate) 2 mg PRN Q2HR PRN IV PAIN Last administered on 05/23/19at 21:05; Start 05/23/19 at 18:15 Clonidine HCl (Catapres) 0.1 mg PRN Q1HR PRN PO HYPERTENSION; Start 05/23/19 at 18:15 Ondansetron HCl (Zofran) 4 mg PRN Q8HRS PRN IV NAUSEA/VOMITING; Start 05/23/19 at 18:15; Stop 05/24/19 at 18:14; Status UNV Morphine Sulfate (Morphine Sulfate) 2 mg PRN Q2HR PRN IV PAIN; Start 05/23/19 at 18:15; Stop 05/24/19 at 18:14; Status UNV Vancomycin HCl 1.75 gm/Sodium Chloride 500 ml @ 250 mls/hr 1X ONCE IV Last administered on 05/23/19at 19:47; Start 05/23/19 at 18:30; Stop 05/23/19 at 20:29; Status DC Colchicine (Colcrys) 0.6 mg DAILY PO ; Start 05/24/19 at 09:00 Vancomycin HCl 1 gm/Sodium Chloride 250 ml @ 250 mls/hr Q12H IV ; Start 05/24/19 at 08:00 Vancomycin HCl (Vancomycin Trough Level) 1 each 1X ONCE MC ; Start 05/25/19 at 07:30; Stop 05/25/19 at 07:31 Diphenhydramine HCl (Benadryl) 25 mg PRN Q6HRS PRN PO ITCHING Last administered on 05/23/19at 22:40; Start 05/23/19 at 22:30 Influenza Virus Vaccine Quadrival (Afluria Quad 2019-20 (3yr Up) Syringe) 0.5 ml ONCE ONCE VAX IM ; Start 05/24/19 at 09:00; Stop 05/24/19 at 09:05; Status DC Cefepime HCl (Maxipime) 1 gm Q12HR IVP ; Start 05/24/19 at 09:00 Ondansetron HCl (Zofran) 4 mg PRN Q6HRS PRN IV NAUSEA/VOMITING; Start 05/24/19 at 09:15; Stop 05/25/19 at 09:14 Fentanyl Citrate (Fentanyl 2ml Vial) 25 mcg PRN Q5MIN PRN IV MILD PAIN 1-3; Start 05/24/19 at 09:15; Stop 05/25/19 at 09:14 Fentanyl Citrate (Fentanyl 2ml Vial) 50 mcg PRN Q5MIN PRN IV MODERATE TO SEVERE PAIN; Start 05/24/19 at 09:15; Stop 05/25/19 at 09:14 Morphine Sulfate (Morphine Sulfate) 1 mg PRN Q10MIN PRN IV SEVERE PAIN 7-10; Start 05/24/19 at 09:15; Stop 05/25/19 at 09:14 Ringer's Solution 1,000 ml @ 30 mls/hr Q24H IV ; Start 05/24/19 at 09:03; Stop 05/24/19 at 21:02 Hydromorphone HCl (Dilaudid) 0.5 mg PRN Q10MIN PRN IV SEV PAIN, Second choice; Start 05/24/19 at 09:15; Stop 05/25/19 at 09:14 Prochlorperazine Edisylate (Compazine) 5 mg PACU PRN PRN IV NAUSEA, MRX1; Star t 05/24/19 at 09:15; Stop 05/25/19 at 09:14 Active Scripts Active [place] 5-325 Tablet (Acetaminophen/Hydrocodone Bitart) 1 Each Tablet 1 Tab PO PRN Q6HRS PRN 3 Days Allergies Allergies: Coded Allergies: No Known Drug Allergies (Unverified , 11/29/15) Physical Exam General: Alert, Oriented X3, Cooperative, moderate distress MUSCULOSKELETAL: Abnormal exam of left (On examiination of the left knee the knee is swollen and warm with effusion noted. On trying to check range of motion of the knee the patient was grimmacing and unable to move the knee. Patient able to flex and extend at the ankle and toes without pain. Right knee has full ROM without pain with collateral ligaments stable and ROM 0-120 degrees.) Vitals VITALS Vital Signs Date Time Temp Pulse Resp B/P (MAP) Pulse Ox O2 Delivery O2 Flow Rate FiO2 05/24/19 07:00 98.5 66 18 127/79 (95) 98 Room Air 98.5 Labs Labs Laboratory Tests Test 05/23/19 16:00 05/23/19 16:20 05/24/19 06:55 White Blood Count 11.4 x10^3/uL (4.0-11.0) Red Blood Count 4.81 x10^6/uL (4.30-5.70) Hemoglobin 15.3 g/dL (13.0-17.5) Hematocrit 44.0 % (39.0-53.0) Mean Corpuscular Volume 91 fL (79-100) Mean Corpuscular Hemoglobin 32 pg (25-35) Mean Corpuscular Hemoglobin Concent 35 g/dL (31-37) Red Cell Distribution Width 13.0 % (11.5-14.5) Platelet Count 250 x10^3/uL (140-400) Neutrophils (%) (Auto) 78 % (31-73) Lymphocytes (%) (Auto) 11 % (24-48) Monocytes (%) (Auto) 10 % (0-9) Eosinophils (%) (Auto) 0 % (0-3) Basophils (%) (Auto) 1 % (0-3) Neutrophils # (Auto) 8.9 x10^3/uL (1.8-7.7) Lymphocytes # (Auto) 1.3 x10^3/uL (1.0-4.8) Monocytes # (Auto) 1.1 x10^3/uL (0.0-1.1) Eosinophils # (Auto) 0.0 x10^3/uL (0.0-0.7) Basophils # (Auto) 0.1 x10^3/uL (0.0-0.2) Sodium Level 143 mmol/L (136-145) Potassium Level 3.8 mmol/L (3.5-5.1) Chloride Level 104 mmol/L (98-107) Carbon Dioxide Level 25 mmol/L (21-32) Anion Gap 14 (6-14) Blood Urea Nitrogen 8 mg/dL (8-26) Creatinine 1.0 mg/dL (0.7-1.3) 0.9 mg/dL (0.7-1.3) Estimated GFR (Cockcroft-Gault) 83.6 94.4 BUN/Creatinine Ratio 8 (6-20) Glucose Level 110 mg/dL (70-99) Lactic Acid Level 1.3 mmol/L (0.4-2.0) Uric Acid 8.7 mg/dL (3.5-7.2) Calcium Level 9.1 mg/dL (8.5-10.1) Total Bilirubin 0.9 mg/dL (0.2-1.0) Aspartate Amino Transf (AST/SGOT) 47 U/L (15-37) Alanine Aminotransferase (ALT/SGPT) 82 U/L (16-63) Alkaline Phosphatase 110 U/L (46-116) Total Protein 8.2 g/dL (6.4-8.2) Albumin 4.3 g/dL (3.4-5.0) Albumin/Globulin Ratio 1.1 (1.0-1.7) Body Fluid Source Synovial Body Fluid Color Yellow Body Fluid Clarity Turbid Body Fluid Nucleated Cells 31215 /cmm (Not Body Fluid Mononuclear WBCs (%) 6 % Body Fluid Polymorphonuclear Cells 94 % Body Fluid Total RBCs Counted 520 /cmm (Not Established) Laboratory Tests Test 05/23/19 16:00 05/23/19 16:20 05/24/19 06:55 White Blood Count 11.4 x10^3/uL (4.0-11.0) Red Blood Count 4.81 x10^6/uL (4.30-5.70) Hemoglobin 15.3 g/dL (13.0-17.5) Hematocrit 44.0 % (39.0-53.0) Mean Corpuscular Volume 91 fL (79-100) Mean Corpuscular Hemoglobin 32 pg (25-35) Mean Corpuscular Hemoglobin Concent 35 g/dL (31-37) Red Cell Distribution Width 13.0 % (11.5-14.5) Platelet Count 250 x10^3/uL (140-400) Neutrophils (%) (Auto) 78 % (31-73) Lymphocytes (%) (Auto) 11 % (24-48) Monocytes (%) (Auto) 10 % (0-9) Eosinophils (%) (Auto) 0 % (0-3) Basophils (%) (Auto) 1 % (0-3) Neutrophils # (Auto) 8.9 x10^3/uL (1.8-7.7) Lymphocytes # (Auto) 1.3 x10^3/uL (1.0-4.8) Monocytes # (Auto) 1.1 x10^3/uL (0.0-1.1) Eosinophils # (Auto) 0.0 x10^3/uL (0.0-0.7) Basophils # (Auto) 0.1 x10^3/uL (0.0-0.2) Sodium Level 143 mmol/L (136-145) Potassium Level 3.8 mmol/L (3.5-5.1) Chloride Level 104 mmol/L (98-107) Carbon Dioxide Level 25 mmol/L (21-32) Anion Gap 14 (6-14) Blood Urea Nitrogen 8 mg/dL (8-26) Creatinine 1.0 mg/dL (0.7-1.3) 0.9 mg/dL (0.7-1.3) Estimated GFR (Cockcroft-Gault) 83.6 94.4 BUN/Creatinine Ratio 8 (6-20) Glucose Level 110 mg/dL (70-99) Lactic Acid Level 1.3 mmol/L (0.4-2.0) Uric Acid 8.7 mg/dL (3.5-7.2) Calcium Level 9.1 mg/dL (8.5-10.1) Total Bilirubin 0.9 mg/dL (0.2-1.0) Aspartate Amino Transf (AST/SGOT) 47 U/L (15-37) Alanine Aminotransferase (ALT/SGPT) 82 U/L (16-63) Alkaline Phosphatase 110 U/L (46-116) Total Protein 8.2 g/dL (6.4-8.2) Albumin 4.3 g/dL (3.4-5.0) Albumin/Globulin Ratio 1.1 (1.0-1.7) Body Fluid Source Synovial Body Fluid Color Yellow Body Fluid Clarity Turbid Body Fluid Nucleated Cells 13107 /cmm (Not Body Fluid Mononuclear WBCs (%) 6 % Body Fluid Polymorphonuclear Cells 94 % Body Fluid Total RBCs Counted 520 /cmm (Not Established) Assessment/Plan Assessment/Plan 38 year old male with no reported injury to the left knee awakened yesterday morning with swollen, painful knee. Brought to [facility] ER with aspiration performed with reported yellow drainage received. Patient is NPO and is scheduled for Arthroscopic irrigation and debridement of right knee today per Dr Manning. Patients RN is acting as entry level electrician and procedure explained with risks and benefits. Body Nucleated fluids 55,500 Uric acid 8.7 with no reported history of gout. ABDIFATAH TAMEZ APRN May 24, 2019 10:26
[2019-05-24] MEDS: VANCOMYCIN PER PHARMACY MC PRN (11:17)
[2019-05-24] MEDS ORDERED: fentaNYL PF VIAL 100 MCG/2 ML VIAL ONE ×2 (11:27→11:51)
[2019-05-24] MEDS ORDERED: DEXAMETHASONE SOD PHOS 4 MG/ML VIAL ONE (11:27)
[2019-05-24] MEDS ORDERED: LIDOCAINE 2% PF 5 ML VIAL. ONE (11:27)
[2019-05-24] MEDS ORDERED: ONDANSETRON PF 4 MG/2 ML VIAL. ONE (11:27)
[2019-05-24] MEDS ORDERED: PROPOFOL 20 ML IV ONE (11:27)
[2019-05-24] MEDS ORDERED: MIDAZOLAM HCL/PF 2 MG/2 ML VIAL. ONE (11:27)
[2019-05-24] MEDS ORDERED: EPINEPHrine VIAL 30 MG/30 ML VIAL ONE (11:53)
[2019-05-24] MEDS ORDERED: BUPIVACAINE MPF 0.25% 30 ML VIAL. ONE ×2 (11:53→13:01)
[2019-05-24] MEDS ORDERED: 0.9 % SODIUM CHLORIDE 20 ML VIAL. IJ ONE (12:27)
--- NOTE | 2019-05-24 12:35 | NUR ---
SS following for discharge planning. SS reviewed pt chart. Pt is self pay pt. HCFS following for self pay status. Pt is from home and is currently on room air. SS will continue to follow for discharge planning.
[2019-05-24] MEDS ORDERED: KETOROLAC 30 MG/ML VIAL. ONE (12:46)
[2019-05-24] MEDS ORDERED: HYDROmorphone 2 MG/ML VIAL ONE (12:48)
[2019-05-24] MEDS ORDERED: SEVOFLURANE 61 TO 120 MINUTES. IH ONE (12:57)
--- NOTE | 2019-05-24 13:11 | PDOC4 ---
Operative Note Operative Note Date of Procedure: May 24, 2019 Pre-Op Diagnosis: M01.X62 direct infection of left knee in infectious and parasitic diseases classified elsewhere Post-Op Diagnosis: M11.262 Other chondrocalcinosis, left knee M01.X62 direct infection of left knee in infectious and parasitic diseases classified elsewhere Procedure: CPT 62477 arthroscopy, knee, surgical; for infection, lavage and drainage Surgeon: Yannick Manning MD Anesthesia: General EBL: 20 mL Specimens Obtained: cultures aerobe and anaerobe, and crystal analysis Complications: none Drains: none Tourniquet time: 26 Minutes Tourniquet pressure: 300 mm Hg Indications for Procedure: The patient is a 38 year old with a probable infected septic left knee joint. I recommended left knee arthroscopic lavage and drainage for presumed infection. We discussed the potential risks of recurrent infection, bleeding, blood clots, neurovascular injury, or other potential surgical or anesthetic complications. The patient and I discussed the risks, benefits and alternatives of surgery. All of the patients questions were answered and he desired to proceed. Procedure in Detail: The patient was identified in the preoperative holding area. The correct left lower extremity was marked by me. The patient was taken to the operating room where anesthesia was used. The patient was positioned supine on the operating table. Preoperative antibiotics were not given because the patient remains on scheduled antibiotics.. A timeout procedure was performed. A tourniquet was placed on the upper left thigh. The left lower limb was prepared with sterile solution and sterile drapes were applied. An impervious stockinette was used over the lower leg. The limb was exsanguinated with an Esmarch bandage. The tourniquet was inflated. Lateral and medial arthroscopy portals were established. Cloudy fluid was noted at placement of the intra-articular trocar. Examination of the knee joint was performed, including the medial tibiofemoral joint, the intercondylar notch, the lateral tibiofemoral joint, suprapatellar pouch, medial gutter, and the lateral gutter. There were white crystals throughout all of the joint and on all of the joint surfaces, most consistent with calcium pyrophosphate deposition disease. The differential includes gout. I cannot rule out infection based on this appearance, a concurrent infection along with a crystalline arthropathy is pos sible. Copious saline irrigation was used. 6Lof saline was used. The shaver was used to retrieve the fluid and to perform associated synovectomy. After systematic and examination of the knee joint and copious irrigation the knee was drained of fluid. The portals were closed with 3-0 Prolene sutures. Local anesthetic with epinephrine was injected into the knee joint. No drain was used.A sterile dressing was applied. The tourniquet was released. Needle and sponge counts were correct. There were no apparent complications. I recommend continuation of antibiotics until cultures are negative. I will start colchicine for presumed chondrocalcinosis. YANNICK MANNING MD May 24, 2019 13:11
--- NOTE | 2019-05-24 13:13 | PDOC ---
[employer] PROGRESS NOTE Chief Complaint Chief Complaint L Knee Pain History of Present Illness History of Present Illness 05/24/2019 Pt was Seen and examined. Today pt denies pain. Denies trauma to the left knee. Reports knee was normal before he went to bed but when he awoke he reports the knee was swollen and painful. Vitals/I&O Vitals/I&O: Vital Signs Date Time Temp Pulse Resp B/P (MAP) Pulse Ox O2 Delivery O2 Flow Rate FiO2 05/24/19 11:57 23 98 Room Air 05/24/19 11:15 100.7 77 123/77 100.7 I & O 05/23/19 05/23/19 05/24/19 15:00 23:00 07:00 Intake Total 1000 ml Balance 1000 ml Physical Exam General: Alert, Cooperative Heart: Regular rate Lungs: Clear Abdomen: Soft Extremities: Other (there is a left knee effusion and slight warmth. There was no traumatic wound, there is slight blood from the aspiration site on the lateral knee. There is not any focal prepatellar bursitis or bursal swelling, this all seems to be joint swelling/joint effusion. The knee is tender and slightly warm but not erythematous. Distal light touch sensation is intact. Minimal motion to the knee, any motion is painful. Sensory and motor function seem intact but motor function is limited by pain) Skin: No breakdown, No significant lesion Labs Labs: Laboratory Tests Test 05/23/19 16:00 05/23/19 16:20 05/24/19 06:55 White Blood Count 11.4 x10^3/uL (4.0-11.0) Red Blood Count 4.81 x10^6/uL (4.30-5.70) Hemoglobin 15.3 g/dL (13.0-17.5) Hematocrit 44.0 % (39.0-53.0) Mean Corpuscular Volume 91 fL (79-100) Mean Corpuscular Hemoglobin 32 pg (25-35) Mean Corpuscular Hemoglobin Concent 35 g/dL (31-37) Red Cell Distribution Width 13.0 % (11.5-14.5) Platelet Count 250 x10^3/uL (140-400) Neutrophils (%) (Auto) 78 % (31-73) Lymphocytes (%) (Auto) 11 % (24-48) Monocytes (%) (Auto) 10 % (0-9) Eosinophils (%) (Auto) 0 % (0-3) Basophils (%) (Auto) 1 % (0-3) Neutrophils # (Auto) 8.9 x10^3/uL (1.8-7.7) Lymphocytes # (Auto) 1.3 x10^3/uL (1.0-4.8) Monocytes # (Auto) 1.1 x10^3/uL (0.0-1.1) Eosinophils # (Auto) 0.0 x10^3/uL (0.0-0.7) Basophils # (Auto) 0.1 x10^3/uL (0.0-0.2) Sodium Level 143 mmol/L (136-145) Potassium Level 3.8 mmol/L (3.5-5.1) Chloride Level 104 mmol/L (98-107) Carbon Dioxide Level 25 mmol/L (21-32) Anion Gap 14 (6-14) Blood Urea Nitrogen 8 mg/dL (8-26) Creatinine 1.0 mg/dL (0.7-1.3) 0.9 mg/dL (0.7-1.3) Estimated GFR (Cockcroft-Gault) 83.6 94.4 BUN/Creatinine Ratio 8 (6-20) Glucose Level 110 mg/dL (70-99) Lactic Acid Level 1.3 mmol/L (0.4-2.0) Uric Acid 8.7 mg/dL (3.5-7.2) Calcium Level 9.1 mg/dL (8.5-10.1) Total Bilirubin 0.9 mg/dL (0.2-1.0) Aspartate Amino Transf (AST/SGOT) 47 U/L (15-37) Alanine Aminotransferase (ALT/SGPT) 82 U/L (16-63) Alkaline Phosphatase 110 U/L (46-116) Total Protein 8.2 g/dL (6.4-8.2) Albumin 4.3 g/dL (3.4-5.0) Albumin/Globulin Ratio 1.1 (1.0-1.7) Body Fluid Source Synovial Body Fluid Color Yellow Body Fluid Clarity Turbid Body Fluid Nucleated Cells 52294 /cmm (Not Body Fluid Mononuclear WBCs (%) 6 % Body Fluid Polymorphonuclear Cells 94 % Body Fluid Total RBCs Counted 520 /cmm (Not Established) Review of Systems Review of Systems: Denies N/V/D Denies fever Denies CP Denies SOB Assessment and Plan Assessmemt and Plan Problems Medical Problems: (1) Knee pain, left Status: Acute Left knee Effusion vs Hemarthrosis 1) Wound Care 2) IV abx 3) Pain Meds 4) DVT prophylaxis 5) Full code 6) DW with Orthopedic PA Reports will be going to the OR today at 12pm for cleaning will plan to D/C the patient later today/tomorrow Comment Review of Relevant I have reviewed the following items imer (where applicable) has been applied. Medications: Current Medications Medications (Trade) Dose Ordered Sig/Heidy Route PRN Reason Start Time Stop Time Status Last Admin Dose Admin Morphine Sulfate (Morphine Sulfate) 4 mg 1X ONCE IV 05/23/19 16:15 05/23/19 16:16 DC 05/23/19 16:13 Sodium Chloride 1,000 ml @ 1,000 mls/hr 1X ONCE IV 05/23/19 16:00 05/23/19 16:59 DC 05/23/19 16:15 Lidocaine HCl 20 ml 1X ONCE IJ 05/23/19 16:30 05/23/19 16:31 DC 05/23/19 16:15 Colchicine (Colcrys) 1.2 mg 1X STAT PO 05/23/19 17:45 05/23/19 17:51 DC 05/23/19 17:58 Ketorolac Tromethamine (Toradol 30mg Vial) 30 mg 1X ONCE IM 05/23/19 17:45 05/23/19 17:51 DC 05/23/19 17:58 Vancomycin HCl (Vanco Per Pharmacy) 1 each PRN DAILY PRN MC SEE COMMENTS 05/23/19 18:15 05/24/19 11:17 Naproxen (Naprosyn) 500 mg BID PO 05/23/19 21:00 05/23/19 21:04 Morphine Sulfate (Morphine Sulfate) 2 mg PRN Q2HR PRN IV PAIN 05/23/19 18:15 05/23/19 21:05 Vancomycin HCl 1.75 gm/Sodium Chloride 500 ml @ 250 mls/hr 1X ONCE IV 05/23/19 18:30 05/23/19 20:29 DC 05/23/19 19:47 Vancomycin HCl 1 gm/Sodium Chloride 250 ml @ 250 mls/hr Q12H IV 05/24/19 08:00 05/24/19 10:04 Diphenhydramine HCl (Benadryl) 25 mg PRN Q6HRS PRN PO ITCHING 05/23/19 22:30 05/23/19 22:40 Cefepime HCl (Maxipime) 1 gm Q12HR IVP 05/24/19 09:00 05/24/19 10:04 Fentanyl Citrate (Fentanyl 2ml Vial) 50 mcg PRN Q5MIN PRN IV MODERATE TO SEVERE PAIN 05/24/19 09:15 05/24/19 18:00 05/24/19 11:57 Epinephrine HCl (Adrenalin) 30 mg STK-MED ONCE .ROUTE 05/24/19 11:53 05/24/19 11:53 DC 05/24/19 12:45 Bupivacaine HCl (Sensorcaine Mpf 0.25%) 30 ml STK-MED ONCE .ROUTE 05/24/19 11:53 05/24/19 11:53 DC 05/24/19 12:44 CARLEEN MAY III DO May 24, 2019 13:13
[2019-05-24] MEDS ORDERED: oxyCODONE/APAP 5/325 1 TAB TABLET PO PRN (13:15)
[2019-05-24 14:35] VITALS: BP 111/72
[2019-05-24 15:20] VITALS: BP 107/69
--- NOTE | 2019-05-24 15:33 | CONS ---
DATE OF CONSULTATION: REQUESTING PHYSICIAN: Dr. Perdomo. REASON FOR CONSULTATION: Left knee inflammation, possible infection. HISTORY OF PRESENT ILLNESS: This is a 38-year-old gentleman who came in who woke up with 1-day history of left knee swelling and pain. The patient denies any trauma. Denies any twisting, turning, any injury. The patient also denies similar episode in the past. The patient did not have any fever other than here he was noted to have 99.6, but denied any fever at home. Denied any nausea, vomiting, diarrhea, chest pain, shortness of breath, abdominal pain, urinary symptoms or bowel symptoms. The patient had a knee aspiration done in the ER, which is showing 55,000 WBC. Culture is pending. The patient is started on vancomycin and the pain medication. The patient is feeling better. Crystal analysis is also pending. The patient has no new complaints. PAST MEDICAL HISTORY: Essentially unremarkable. He denies any history of gout or pseudogout or similar episode. SOCIAL HISTORY: Negative for smoking, occasional alcohol use, no drug use. ALLERGIES: No known drug allergies. CURRENT MEDICATIONS: Reviewed. The patient is on vancomycin. REVIEW OF SYSTEMS: As per HPI, all other systems reviewed are negative. PHYSICAL EXAMINATION: GENERAL: Alert, oriented gentleman, not in distress. VITAL SIGNS: Stable with a T-max of 99.6. Rest of vital signs stable. HEENT: NAD. NECK: Supple, no JVP, no lymphadenopathy. LUNGS: Clear. HEART: S1, S2 regular. ABDOMEN: Benign. EXTREMITIES: No edema, cyanosis. SKIN: Unremarkable. The patient is neurologically intact. In particular joint, left knee is swollen with some mild tenderness present. There is no erythema. There is no open wound. NEUROLOGIC: The patient is neurologically alert, awake and appropriate. No focal neurologic deficit. LABORATORY DATA: White count is 11.4, hemoglobin 15.3, platelets are normal. BUN and creatinine is normal. His lactic acid 1.3. Uric acid 8.7. AST 47, ALT 82. The fluid was yellow, turbid, 55,500 nucleated cells, 94% poly, 520 RBC. X-ray was unremarkable other than fluid. IMPRESSION: 1. Monoarticular inflammation of the left knee, possibility of infection is very high with mild cell count number, although crystal analysis pending and culture is pending. 2. Slight fever. 3. Leukocytosis. RECOMMENDATIONS: Recommend continue vancomycin, add cefepime, supportive care. We will wait for the culture and crystal analysis and we will continue to follow. Thank you very much, Dr. Perdomo, for giving me the opportunity to participate in this patient's care. CHERRIE STACY MD DR: DANIEL/cheryl JOB#: [id number] / [id number]
[2019-05-24 19:00] VITALS: BP 106/63
[2019-05-24] MEDS: COLCHICINE 0.6 MG TABLET PO SCH (21:15)
[2019-05-24 22:57] VITALS: BP 104/55
[2019-05-25 03:00] VITALS: BP 103/62
[2019-05-25 07:00] VITALS: BP 105/66
[2019-05-25 08:20] LABS: VANC TR 6.6 mcg/mL (10.0-20.0)
--- NOTE | 2019-05-25 08:41 | PDOC ---
PROGRESS NOTES Chief Complaint Chief Complaint L Knee Pain History of Present Illness History of Present Illness Mr Kevin is a 38-year-old M who p/w with 1-day history of left knee swelling and pain. The patient denies any trauma. Denies any twisting, turning, any injury. The patient also denies similar episode in the past. The patient did not have any fever other than here he was noted to have 99.6, but denied any fever at [facility]. Denied any nausea, vomiting, diarrhea, chest pain, shortness of breath, abdominal pain, urinary symptoms or bowel symptoms. The patient had a knee aspiration done in the ER, which is showing 55,000 WBC. Uric acid 8.7. His ROM is still very limited. pain is better today. No CP or SOB. 05/24/2019 Pt was Seen and examined. Today pt denies pain. Denies trauma to the left knee. Reports knee was normal before he went to bed but when he awoke he reports the knee was swollen and painful. Vitals Vitals Vital Signs Date Time Temp Pulse Resp B/P (MAP) Pulse Ox O2 Delivery O2 Flow Rate FiO2 05/25/19 07:00 98.1 54 16 105/66 (79) 97 Room Air 98.1 05/24/19 13:33 10 Physical Exam General: Alert, Cooperative Heart: Regular rate Lungs: Clear Abdomen: Soft Extremities: Other (there is a left knee effusion and slight warmth. There was no traumatic wound, there is slight blood from the aspiration site on the lateral knee. There is not any focal prepatellar bursitis or bursal swelling, this all seems to be joint swelling/joint effusion. The knee is tender and slightly warm but not erythematous. Distal light touch sensation is intact. Minimal motion to the knee, any motion is painful. Sensory and motor function seem intact but motor function is limited by pain) Skin: No breakdown, No significant lesion Labs LABS Laboratory Tests Test 05/25/19 07:30 Vancomycin Level Trough 6.6 mcg/mL (10.0-20.0) Vancomycin Last Dose Date 05/24/19 Vancomycin Last Dose Time 1999 Assessment and Plan Assessmemt and Plan Problems Medical Problems: (1) Knee pain, left Status: Acute Comment Review of Relevant I have reviewed the following items imer (where applicable) has been applied. Labs Laboratory Tests Test 05/23/19 16:00 05/23/19 16:20 05/24/19 06:55 05/25/19 07:30 White Blood Count 11.4 x10^3/uL (4.0-11.0) Red Blood Count 4.81 x10^6/uL (4.30-5.70) Hemoglobin 15.3 g/dL (13.0-17.5) Hematocrit 44.0 % (39.0-53.0) Mean Corpuscular Volume 91 fL (79-100) Mean Corpuscular Hemoglobin 32 pg (25-35) Mean Corpuscular Hemoglobin Concent 35 g/dL (31-37) Red Cell Distribution Width 13.0 % (11.5-14.5) Platelet Count 250 x10^3/uL (140-400) Neutrophils (%) (Auto) 78 % (31-73) Lymphocytes (%) (Auto) 11 % (24-48) Monocytes (%) (Auto) 10 % (0-9) Eosinophils (%) (Auto) 0 % (0-3) Basophils (%) (Auto) 1 % (0-3) Neutrophils # (Auto) 8.9 x10^3/uL (1.8-7.7) Lymphocytes # (Auto) 1.3 x10^3/uL (1.0-4.8) Monocytes # (Auto) 1.1 x10^3/uL (0.0-1.1) Eosinophils # (Auto) 0.0 x10^3/uL (0.0-0.7) Basophils # (Auto) 0.1 x10^3/uL (0.0-0.2) Sodium Level 143 mmol/L (136-145) Potassium Level 3.8 mmol/L (3.5-5.1) Chloride Level 104 mmol/L (98-107) Carbon Dioxide Level 25 mmol/L (21-32) Anion Gap 14 (6-14) Blood Urea Nitrogen 8 mg/dL (8-26) Creatinine 1.0 mg/dL (0.7-1.3) 0.9 mg/dL (0.7-1.3) Estimated GFR (Cockcroft-Gault) 83.6 94.4 BUN/Creatinine Ratio 8 (6-20) Glucose Level 110 mg/dL (70-99) Lactic Acid Level 1.3 mmol/L (0.4-2.0) Uric Acid 8.7 mg/dL (3.5-7.2) Calcium Level 9.1 mg/dL (8.5-10.1) Total Bilirubin 0.9 mg/dL (0.2-1.0) Aspartate Amino Transf (AST/SGOT) 47 U/L (15-37) Alanine Aminotransferase (ALT/SGPT) 82 U/L (16-63) Alkaline Phosphatase 110 U/L (46-116) Total Protein 8.2 g/dL (6.4-8.2) Albumin 4.3 g/dL (3.4-5.0) Albumin/Globulin Ratio 1.1 (1.0-1.7) Body Fluid Source Synovial Body Fluid Color Yellow Body Fluid Clarity Turbid Body Fluid Nucleated Cells 95058 /cmm (Not Body Fluid Mononuclear WBCs (%) 6 % Body Fluid Polymorphonuclear Cells 94 % Body Fluid Total RBCs Counted 520 /cmm (Not Established) Vancomycin Level Trough 6.6 mcg/mL (10.0-20.0) Vancomycin Last Dose Date 05/24/19 Vancomycin Last Dose Time 1999 Laboratory Tests Test 05/25/19 07:30 Vancomycin Level Trough 6.6 mcg/mL (10.0-20.0) Vancomycin Last Dose Date 05/24/19 Vancomycin Last Dose Time 1999 Microbiology 05/23/19 Blood Culture - Preliminary, Resulted NO GROWTH AFTER 1 DAY Medications Current Medications Morphine Sulfate (Morphine Sulfate) 4 mg 1X ONCE IV Last administered on 05/23/19at 16:13; Start 05/23/19 at 16:15; Stop 05/23/19 at 16:16; Status DC Sodium Chloride 1,000 ml @ 1,000 mls/hr 1X ONCE IV Last administered on 05/23/19at 16:15; Start 05/23/19 at 16:00; Stop 05/23/19 at 16:59; Status DC Lidocaine HCl 20 ml 1X ONCE IJ Last administered on 05/23/19at 16:15; Start 05/23/19 at 16:30; Stop 05/23/19 at 16:31; Status DC Colchicine (Colcrys) 1.2 mg 1X STAT PO Last administered on 05/23/19at 17:58; Start 05/23/19 at 17:45; Stop 05/23/19 at 17:51; Status DC Ketorolac Tromethamine (Toradol 30mg Vial) 30 mg 1X ONCE IM Last administered on 05/23/19at 17:58; Start 05/23/19 at 17:45; Stop 05/23/19 at 17:51; Status DC Vancomycin HCl (Vanco Per Pharmacy) 1 each PRN DAILY PRN MC SEE COMMENTS Last administered on 05/24/19at 11:17; Start 05/23/19 at 18:15 Naproxen (Naprosyn) 500 mg BID PO Last administered on 05/24/19at 21:15; Start 05/23/19 at 21:00 Acetaminophen/ Hydrocodone Bitart (Lortab 5/325) 1 tab PRN Q6HRS PRN PO MODERATE-SEVERE PAIN; Start 05/23/19 at 18:15; Stop 05/24/19 at 13:33; Status DC Acetaminophen (Tylenol) 500 mg PRN Q6HRS PRN PO MILD PAIN / TEMP; Start 05/23 at 18:15 Ondansetron HCl (Zofran) 4 mg PRN Q6HRS PRN IVP NAUSEA/VOMITING; Start 05/23/19 at 18:15 Zolpidem Tartrate (Ambien) 5 mg PRN QHS PRN PO INSOMNIA, MAY REPEAT IN 1HR; Start 05/23/19 at 18:15 Morphine Sulfate (Morphine Sulfate) 2 mg PRN Q2HR PRN IV PAIN Last administered on 05/23/19at 21:05; Start 05/23/19 at 18:15 Clonidine HCl (Catapres) 0.1 mg PRN Q1HR PRN PO HYPERTENSION; Start 05/23/19 at 18:15 Ondansetron HCl (Zofran) 4 mg PRN Q8HRS PRN IV NAUSEA/VOMITING; Start 05/23/19 at 18:15; Stop 05/24/19 at 18:14; Status UNV Morphine Sulfate (Morphine Sulfate) 2 mg PRN Q2HR PRN IV PAIN; Start 05/23/19 at 18:15; Stop 05/24/19 at 18:14; Status UNV Vancomycin HCl 1.75 gm/Sodium Chloride 500 ml @ 250 mls/hr 1X ONCE IV Last administered on 05/23/19at 19:47; Start 05/23/19 at 18:30; Stop 05/23/19 at 20:29; Status DC Colchicine (Colcrys) 0.6 mg DAILY PO ; Start 05/24/19 at 09:00; Stop 05/24/19 at 13:31; Status DC Vancomycin HCl 1 gm/Sodium Chloride 250 ml @ 250 mls/hr Q12H IV Last ad ministered on 05/24/19at 20:03; Start 05/24/19 at 08:00 Vancomycin HCl (Vancomycin Trough Level) 1 each 1X ONCE MC ; Start 05/25/19 at 07:30; Stop 05/25/19 at 07:31; Status DC Diphenhydramine HCl (Benadryl) 25 mg PRN Q6HRS PRN PO ITCHING Last administered on 05/23/19at 22:40; Start 05/23/19 at 22:30 Influenza Virus Vaccine Quadrival (Afluria Quad 2019-20 (3yr Up) Syringe) 0.5 ml ONCE ONCE VAX IM ; Start 05/24/19 at 09:00; Stop 05/24/19 at 09:05; Status DC Cefepime HCl (Maxipime) 1 gm Q12HR IVP Last administered on 05/24/19at 21:15; Start 05/24/19 at 09:00 Ondansetron HCl (Zofran) 4 mg PRN Q6HRS PRN IV NAUSEA/VOMITING; Start 05/24/19 at 09:15; Stop 05/24/19 at 18:00; Status DC Fentanyl Citrate (Fentanyl 2ml Vial) 25 mcg PRN Q5MIN PRN IV MILD PAIN 1-3; Start 05/24/19 at 09:15; Stop 05/24/19 at 18:00; Status DC Fentanyl Citrate (Fentanyl 2ml Vial) 50 mcg PRN Q5MIN PRN IV MODERATE TO SEVERE PAIN Last administered on 05/24/19at 11:57; Start 05/24/19 at 09:15; Stop 05/24/19 at 18:00; Status DC Morphine Sulfate (Morphine Sulfate) 1 mg PRN Q10MIN PRN IV SEVERE PAIN 7-10; Start 05/24/19 at 09:15; Stop 05/24/19 at 18:00; Status DC Ringer's Solution 1,000 ml @ 30 mls/hr Q24H IV ; Start 05/24/19 at 09:03; Stop 05/24/19 at 21:02; Status DC Hydromorphone HCl (Dilaudid) 0.5 mg PRN Q10MIN PRN IV SEV PAIN, Second choice; Start 05/24/19 at 09:15; Stop 05/24/19 at 18:00; Status DC Prochlorperazine Edisylate (Compazine) 5 mg PACU PRN PRN IV NAUSEA, MRX1; Start 05/24/19 at 09:15; Stop 05/24/19 at 18:00; Status DC Propofol 20 ml @ As Directed STK-MED ONCE IV ; Start 05/24/19 at 11:27; Stop 05/24/19 at 11:27; Status DC Lidocaine HCl (Lidocaine Pf 2% Vial) 5 ml STK-MED ONCE .ROUTE ; Start 05/24/19 at 11:27; Stop 05/24/19 at 11:27; Status DC Ondansetron HCl (Zofran) 4 mg STK-MED ONCE .ROUTE ; Start 05/24/19 at 11:27; Stop 05/24/19 at 11:28; Status DC Dexamethasone Sodium Phosphate (Decadron) 4 mg STK-MED ONCE .ROUTE ; Start 05/24/19 at 11:27; Stop 05/24/19 at 11:28; Status DC Fentanyl Citrate (Fentanyl 2ml Vial) 100 mcg STK-MED ONCE .ROUTE ; Start 05/24/19 at 11:27; Stop 05/24/19 at 11:28; Status DC Midazolam HCl (Versed) 2 mg STK-MED ONCE .ROUTE ; Start 05/24/19 at 11:27; Stop 05/24/19 at 11:28; Status DC Fentanyl Citrate (Fentanyl 2ml Vial) 100 mcg STK-MED ONCE .ROUTE ; Start 05/24/19 at 11:51; Stop 05/24/19 at 11:51; Status DC Epinephrine HCl (Adrenalin) 30 mg STK-MED ONCE .ROUTE Last administered on 05/24/19at 12:45; Start 05/24/19 at 11:53; Stop 05/24/19 at 11:53; Status DC Bupivacaine HCl (Sensorcaine Mpf 0.25%) 30 ml STK-MED ONCE .ROUTE Last administered on 05/24/19at 12:44; Start 05/24/19 at 11:53; Stop 05/24/19 at 11:53; Status DC Sodium Chloride (SODIUM CHLORIDE 20ml) 20 ml STK-MED ONCE IJ ; Start 05/24/19 at 12:27; Stop 05/24/19 at 12:27; Status DC Ketorolac Tromethamine (Toradol 30mg Vial) 30 mg STK-MED ONCE .ROUTE ; Start 05/24/19 at 12:46; Stop 05/24/19 at 12:47; Status DC Hydromorphone HCl (Dilaudid) 2 mg STK-MED ONCE .ROUTE ; Start 05/24/19 at 12:48; Stop 05/24/19 at 12:48; Status DC Sevoflurane (Ultane) 60 ml STK-MED ONCE IH ; Start 05/24/19 at 12:57; Stop 05/24/19 at 12:57; Status DC Bupivacaine HCl (Sensorcaine Mpf 0.25%) 30 ml STK-MED ONCE .ROUTE Last administered on 05/24/19at 13:03; Start 05/24/19 at 13:01; Stop 05/24/19 at 13:01; Status DC Colchicine (Colcrys) 0.6 mg BID PO Last administered on 05/24/19at 21:15; Start 05/24/19 at 21:00; Stop 06/07/19 at 20:59 Oxycodone/ Acetaminophen (Percocet 5/325) 1 tab PRN Q4HRS PRN PO MODERATE PAIN; Start 05/24/19 at 13:15 Oxycodone/ Acetaminophen (Percocet 5/325) 2 tab PRN Q4HRS PRN PO SEVERE PAIN; Start 05/24/19 at 13:45 Active Scripts Active [place] 5-325 Tablet (Acetaminophen/Hydrocodone Bitart) 1 Each Tablet 1 Tab PO PRN Q6HRS PRN 3 Days Vitals/I & O Vital Sign - Last 24 Hours 05/24/19 05/24/19 05/24/19 05/24/19 11:15 11:57 13:16 13:16 Temp 100.7 98.1 100.7 98.1 Pulse 77 76 Resp 21 23 16 B/P (MAP) 123/77 112/65 Pulse Ox 98 98 97 O2 Delivery Room Air Room Air Mask Simple Mask O2 Flow Rate 10 10 05/24/19 10/14/19 10/14/19 10/14/19 13:33 13:48 14:35 15:20 Temp 98.5 98.4 98.5 98.4 Pulse 74 90 75 72 Resp 16 17 18 18 B/P (MAP) 108/60 121/69 111/72 (85) 107/69 (82) Pulse Ox 98 96 100 90 O2 Delivery Simple Mask Room Air Room Air Room Air O2 Flow Rate 05/24/19 05/24/19 05/25/19 05/25/19 19:00 22:57 03:00 07:00 Temp 98.4 98.6 98.0 98.1 98.4 98.6 98.0 98.1 Pulse 65 66 60 54 Resp 18 18 18 16 B/P (MAP) 106/63 (77) 104/55 (71) 103/62 (76) 105/66 (79) Pulse Ox 96 96 95 97 O2 Delivery Room Air Room Air Room Air Room Air Intake and Output 05/24/19 05/24/19 05/25/19 15:00 23:00 07:00 Intake Total 850 ml Output Total 20 ml Balance 830 ml NATHANIEL MICHELLE MD May 25, 2019 08:41
[2019-05-25] MEDS: COLCHICINE 0.6 MG TABLET PO SCH ×2 (09:08→22:31)
[2019-05-25] MEDS: VANCOMYCIN 1 GM in IV NORMAL SALINE 250ML 250 ML IV SCH (09:08)
[2019-05-25] MEDS: CEFEPIME HCL IV Push 1 GM VIAL. IVP SCH ×2 (09:08→22:31)
[2019-05-25] MEDS: NAPROXEN 500 MG TABLET PO SCH ×2 (09:09→22:31)
--- NOTE | 2019-05-25 09:10 | PDOC ---
Infectious Disease Note Subjective Subjective feeling better ROS ROS no n/v/d/sob/fever Vital Sign Vital Signs Vital Signs Date Time Temp Pulse Resp B/P (MAP) Pulse Ox O2 Delivery O2 Flow Rate FiO2 05/25/19 07:00 98.1 54 16 105/66 (79) 97 Room Air 98.1 05/24/19 13:33 10 Physical Exam PHYSICAL EXAM GENERAL: Alert, oriented gentleman, not in distress. VITAL SIGNS: Stable HEENT: NAD. NECK: Supple, no JVP, no lymphadenopathy. LUNGS: Clear. HEART: S1, S2 regular. ABDOMEN: Benign. EXTREMITIES: No edema, cyanosis. SKIN: Unremarkable. The patient is neurologically intact. In particular joint, left knee is swollen with some mild tenderness present. There is no erythema. There is no open wound. NEUROLOGIC: The patient is neurologically alert, awake and appropriate. No focal neurologic deficit. Labs Lab Laboratory Tests Test 05/25/19 07:30 Vancomycin Level Trough 6.6 mcg/mL (10.0-20.0) Vancomycin Last Dose Date 05/24/19 Vancomycin Last Dose Time 1999 Micro Microbiology 05/23/19 Blood Culture - Preliminary, Resulted NO GROWTH AFTER 1 DAY Objective Assessment 1. Monoarticular inflammation of the left knee, possibility of infection is very high with mild cell count number, although crystal analysis pending and culture is pending. s/p I and D 2. Slight fever. 3. Leukocytosis. Plan Plan of Care cont antibiotics for now await crystal analysis and culture CHERRIE STACY MD May 25, 2019 09:10
[2019-05-25 11:00] VITALS: BP 99/53
[2019-05-25] MEDS: VANCOMYCIN PER PHARMACY MC PRN (11:06)
--- NOTE | 2019-05-25 11:17 | NUR ---
Pharmacy Vancomycin Dosing Note S:Consulted to monitor and dose vancomycin started 05/23/19. O:MANUEL DUMONT is a 38 year old M with R/O SEPTIC JOINT . Height: 5 feet, 5 inches Weight: 68.622614 kg [place] Body Weight: 61.50 Adjusted Body Weight: 64.10 Dosing Weight: Actual Other Antibiotics: CEFEPIME LABS: Last BUN: 8 Last Creatinine: 0.9 Creatinine Clearance: 96.8 mL/min Last WBC: 11.4 Last Procalcitonin: Tmax (past 24 hours): 98.5 Microbiology: BLOOD CULTURE Preliminary NO GROWTH AFTER 1 DAY I/O: 850/20 Drug Levels: Last Trough level: 6.6 on 05/25/19 at 0730 Last dose given 05/25/19 at 0908 Vancomycin Dosing: Loading Dose: 1750 mg x1 Dosing Weight: Actual Target Trough: 15-20 A: Based on kinetics and level of 6.6: P: 1. Increase Vancomycin to 1250 mg IV q8h. 2. Follow up Trough level as needed. 3. Pharmacy will continue to monitor, follow and adjust therapy as needed. Leeroy Chan [facility], 05/25/19 [id number]
[2019-05-25] MEDS: oxyCODONE/APAP 5/325 1 TAB TABLET PO PRN ×2 (13:55→22:31)
[2019-05-25 15:00] VITALS: BP 110/58
[2019-05-25] MEDS: VANCOMYCIN 1.25 GM in IV NORMAL SALINE 250ML 250 ML IV SCH (16:57)
[2019-05-25 19:15] VITALS: BP 114/64
[2019-05-25] MEDS: LACTOBACILLUS RHAMNOSUS GG 1 CAPSULE. PO SCH (22:31)
[2019-05-25 23:05] VITALS: BP 112/78
[2019-05-26] MEDS: VANCOMYCIN 1.25 GM in IV NORMAL SALINE 250ML 250 ML IV SCH ×3 (00:49→17:25)
[2019-05-26 03:01] VITALS: BP 98/67
[2019-05-26 07:00] VITALS: BP 116/71
--- NOTE | 2019-05-26 08:26 | PDOC ---
PROGRESS NOTES Chief Complaint Chief Complaint L Knee Pain History of Present Illness History of Present Illness Mr Kevin is a 38-year-old M who p/w with 1-day history of left knee swelling and pain. The patient denies any trauma. Denies any twisting, turning, any injury. The patient also denies similar episode in the past. The patient did not have any fever other than here he was noted to have 99.6, but denied any fever at [facility]. Denied any nausea, vomiting, diarrhea, chest pain, shortness of breath, abdominal pain, urinary symptoms or bowel symptoms. The patient had a knee aspiration done in the ER, which is showing 55,000 WBC. Uric acid 8.7. His ROM is still very limited. pain is better today. No CP or SOB. Crystal analysis negative. Culture negative, but significant WBC in knee fluid. D/w ID will need at least another day of IV antibiotics 05/24/2019 Pt was Seen and examined. Today pt denies pain. Denies trauma to the left knee. Reports knee was normal before he went to bed but when he awoke he reports the knee was swollen and painful. Vitals Vitals Vital Signs Date Time Temp Pulse Resp B/P (MAP) Pulse Ox O2 Delivery O2 Flow Rate FiO2 05/26/19 07:00 98.0 50 18 116/71 (86) 99 Room Air 98.0 Physical Exam Physical Exam GENERAL: Alert, oriented gentleman, not in distress. VITAL SIGNS: Stable HEENT: NAD. NECK: Supple, no JVP, no lymphadenopathy. LUNGS: Clear. HEART: S1, S2 regular. ABDOMEN: Benign. EXTREMITIES: No edema, cyanosis. SKIN: Unremarkable. The patient is neurologically intact. In particular joint, left knee is swollen with some mild tenderness present. There is no erythema. There is no open wound. NEUROLOGIC: The patient is neurologically alert, awake and appropriate. No focal neurologic deficit. General: Alert, Cooperative Heart: Regular rate Lungs: Clear Abdomen: Soft Extremities: Other (there is a left knee effusion and slight warmth. There was no traumatic wound, there is slight blood from the aspiration site on the l ateral knee. There is not any focal prepatellar bursitis or bursal swelling, this all seems to be joint swelling/joint effusion. The knee is tender and slightly warm but not erythematous. Distal light touch sensation is intact. Minimal motion to the knee, any motion is painful. Sensory and motor function seem intact but motor function is limited by pain) Skin: No breakdown, No significant lesion Assessment and Plan Assessmemt and Plan Problems Medical Problems: (1) Knee pain, left Status: Acute Comment Review of Relevant I have reviewed the following items imer (where applicable) has been applied. Labs Laboratory Tests Test 05/24/19 12:38 05/25/19 07:30 Body Fluid Crystals Comment (None seen) Vancomycin Level Trough 6.6 mcg/mL (10.0-20.0) Vancomycin Last Dose Date 05/24/19 Vancomycin Last Dose Time 1999 Microbiology 05/23/19 Blood Culture - Preliminary, Resulted NO GROWTH AFTER 2 DAYS 05/23/19 Anaerobic/Aerobic Culture, Resulted Pending 05/23/19 Anaerobic Culture Result 1 (ROMMEL), Resulted Pending 05/23/19 Aerobic Culture, Resulted Pending 05/23/19 Aerobic Culture Result 1 (ROMMEL), Resulted Pending 05/23/19 Gram Stain - Final, Resulted 05/23/19 Gram Stain Result 1 (ROMMEL) - Final, Resulted 05/23/19 Gram Stain Result 2 (ROMMEL) - Final, Resulted Medications Current Medications Morphine Sulfate (Morphine Sulfate) 4 mg 1X ONCE IV Last administered on 05/23/19at 16:13; Start 05/23/19 at 16:15; Stop 05/23/19 at 16:16; Status DC Sodium Chloride 1,000 ml @ 1,000 mls/hr 1X ONCE IV Last administered on 05/23/19at 16:15; Start 05/23/19 at 16:00; Stop 05/23/19 at 16:59; Status DC Lidocaine HCl 20 ml 1X ONCE IJ Last administered on 05/23/19at 16:15; Start 05/23/19 at 16:30; Stop 05/23/19 at 16:31; Status DC Colchicine (Colcrys) 1.2 mg 1X STAT PO Last administered on 05/23/19at 17:58; Start 05/23/19 at 17:45; Stop 05/23/19 at 17:51; Status DC Ketorolac Tromethamine (Toradol 30mg Vial) 30 mg 1X ONCE IM Last administered on 05/23/19at 17:58; Start 05/23/19 at 17:45; Stop 05/23/19 at 17:51; Status DC Vancomycin HCl (Vanco Per Pharmacy) 1 each PRN DAILY PRN MC SEE COMMENTS Last administered on 05/25/19at 11:06; Start 05/23/19 at 18:15 Naproxen (Naprosyn) 500 mg BID PO Last administered on 05/25/19at 22:31; Start 05/23/19 at 21:00 Acetaminophen/ Hydrocodone Bitart (Lortab 5/325) 1 tab PRN Q6HRS PRN PO MODERATE-SEVERE PAIN; Start 05/23/19 at 18:15; Stop 05/24/19 at 13:33; Status DC Acetaminophen (Tylenol) 500 mg PRN Q6HRS PRN PO MILD PAIN / TEMP; Start 05/23/19 at 18:15 Ondansetron HCl (Zofran) 4 mg PRN Q6HRS PRN IVP NAUSEA/VOMITING; Start 05/23/19 at 18:15 Zolpidem Tartrate (Ambien) 5 mg PRN QHS PRN PO INSOMNIA, MAY REPEAT IN 1HR; Start 05/23/19 at 18:15 Morphine Sulfate (Morphine Sulfate) 2 mg PRN Q2HR PRN IV PAIN Last administered on 05/23/19at 21:05; Start 05/23/19 at 18:15 Clonidine HCl (Catapres) 0.1 mg PRN Q1HR PRN PO HYPERTENSION; Start 05/23/19 at 18:15 Ondansetron HCl (Zofran) 4 mg PRN Q8HRS PRN IV NAUSEA/VOMITING; Start 05/23/19 at 18:15; Stop 05/24/19 at 18:14; Status UNV Morphine Sulfate (Morphine Sulfate) 2 mg PRN Q2HR PRN IV PAIN; Start 05/23/19 at 18:15; Stop 05/24/19 at 18:14; Status UNV Vancomycin HCl 1.75 gm/Sodium Chloride 500 ml @ 250 mls/hr 1X ONCE IV Last administered on 05/23/19at 19:47; Start 05/23/19 at 18:30; Stop 05/23/19 at 20:29; Status DC Colchicine (Colcrys) 0.6 mg DAILY PO ; Start 05/24/19 at 09:00; Stop 05/24/19 at 13:31; Status DC Vancomycin HCl 1 gm/Sodium Chloride 250 ml @ 250 mls/hr Q12H IV Last administered on 05/25/19at 09:08; Start 05/24/19 at 08:00; Stop 05/25/19 at 11:06; Status DC Vancomycin HCl (Vancomycin Trough Level) 1 each 1X ONCE MC ; Start 05/25/19 at 07:30; Stop 05/25/19 at 07:31; Status DC Diphenhydramine HCl (Benadryl) 25 mg PRN Q6HRS PRN PO ITCHING Last administered on 05/23/19at 22:40; Start 05/23/19 at 22:30 Influenza Virus Vaccine Quadrival (Afluria Quad 2019-20 (3yr Up) Syringe) 0.5 ml ONCE ONCE VAX IM Last administered on 05/25/19at 09:13; Start 05/24/19 at 09:00; Stop 05/24/19 at 09:05; Status DC Cefepime HCl (Maxipime) 1 gm Q12HR IVP Last administered on 05/25/19at 22:31; Start 05/24/19 at 09:00 Ondansetron HCl (Zofran) 4 mg PRN Q6HRS PRN IV NAUSEA/VOMITING; Start 05/24/19 at 09:15; Stop 05/24/19 at 18:00; Status DC Fentanyl Citrate (Fentanyl 2ml Vial) 25 mcg PRN Q5MIN PRN IV MILD PAIN 1-3; Start 05/24/19 at 09:15; Stop 05/24/19 at 18:00; Status DC Fentanyl Citrate (Fentanyl 2ml Vial) 50 mcg PRN Q5MIN PRN IV MODERATE TO SEVERE PAIN Last administered on 05/24/19at 11:57; Start 05/24/19 at 09:15; Stop 05/24/19 at 18:00; Status DC Morphine Sulfate (Morphine Sulfate) 1 mg PRN Q10MIN PRN IV SEVERE PAIN 7-10; Start 05/24/19 at 09:15; Stop 05/24/19 at 18:00; Status DC Ringer's Solution 1,000 ml @ 30 mls/hr Q24H IV ; Start 05/24/19 at 09:03; Stop 05/24/19 at 21:02; Status DC Hydromorphone HCl (Dilaudid) 0.5 mg PRN Q10MIN PRN IV SEV PAIN, Second choice; Start 05/24/19 at 09:15; Stop 05/24/19 at 18:00; Status DC Prochlorperazine Edisylate (Compazine) 5 mg PACU PRN PRN IV NAUSEA, MRX1; Start 05/24/19 at 09:15; Stop 05/24/19 at 18:00; Status DC Propofol 20 ml @ As Directed STK-MED ONCE IV ; Start 05/24/19 at 11:27; Stop 05/24/19 at 11:27; Status DC Lidocaine HCl (Lidocaine Pf 2% Vial) 5 ml STK-MED ONCE .ROUTE ; Start 05/24/19 at 11:27; Stop 05/24/19 at 11:27; Status DC Ondansetron HCl (Zofran) 4 mg STK-MED ONCE .ROUTE ; Start 05/24/19 at 11:27; Stop 05/24/19 at 11:28; Status DC Dexamethasone Sodium Phosphate (Decadron) 4 mg STK-MED ONCE .ROUTE ; Start 05/24/19 at 11:27; Stop 05/24/19 at 11:28; Status DC Fentanyl Citrate (Fentanyl 2ml Vial) 100 mcg STK-MED ONCE .ROUTE ; Start 05/24/19 at 11:27; Stop 05/24/19 at 11:28; Status DC Midazolam HCl (Versed) 2 mg STK-MED ONCE .ROUTE ; Start 05/24/19 at 11:27; Stop 05/24/19 at 11:28; Status DC Fentanyl Citrate (Fentanyl 2ml Vial) 100 mcg STK-MED ONCE .ROUTE ; Start 05/24/19 at 11:51; Stop 05/24/19 at 11:51; Status DC Epinephrine HCl (Adrenalin) 30 mg STK-MED ONCE .ROUTE Last administered on 05/24/19at 12:45; Start 05/24/19 at 11:53; Stop 05/24/19 at 11:53; Status DC Bupivacaine HCl (Sensorcaine Mpf 0.25%) 30 ml STK-MED ONCE .ROUTE Last administered on 05/24/19at 12:44; Start 05/24/19 at 11:53; Stop 05/24/19 at 11:53; Status DC Sodium Chloride (SODIUM CHLORIDE 20ml) 20 ml STK-MED ONCE IJ ; Start 05/24/19 at 12:27; Stop 05/24/19 at 12:27; Status DC Ketorolac Tromethamine (Toradol 30mg Vial) 30 mg STK-MED ONCE .ROUTE ; Start 05/24/19 at 12:46; Stop 05/24/19 at 12:47; Status DC Hydromorphone HCl (Dilaudid) 2 mg STK-MED ONCE .ROUTE ; Start 05/24/19 at 12:48; Stop 05/24/19 at 12:48; Status DC Sevoflurane (Ultane) 60 ml STK-MED ONCE IH ; Start 05/24/19 at 12:57; Stop 05/24/19 at 12:57; Status DC Bupivacaine HCl (Sensorcaine Mpf 0.25%) 30 ml STK-MED ONCE .ROUTE Last administered on 05/24/19at 13:03; Start 05/24/19 at 13:01; Stop 05/24/19 at 13:01; Status DC Colchicine (Colcrys) 0.6 mg BID PO Last administered on 05/25/19at 22:31; Start 05/24/19 at 21:00; Stop 06/07/19 at 20:59 Oxycodone/ Acetaminophen (Percocet 5/325) 1 tab PRN Q4HRS PRN PO MODERATE PAIN; Start 05/24/19 at 13:15 Oxycodone/ Acetaminophen (Percocet 5/325) 2 tab PRN Q4HRS PRN PO SEVERE PAIN Last administered on 05/25/19at 22:31; Start 05/24/19 at 13:45 Vancomycin HCl 1.25 gm/Sodium Chloride 250 ml @ 167 mls/hr Q8H IV Last administered on 05/26/19at 00:49; Start 05/25/19 at 17:00 Lactobacillus Rhamnosus (Culturelle) 1 cap BID PO Last administered on 05/25/19at 22:31; Start 05/25/19 at 21:00 Active Scripts Active [place] 5-325 Tablet (Acetaminophen/Hydrocodone Bitart) 1 Each Tablet 1 Tab PO PRN Q6HRS PRN 3 Days Vitals/I & O Vital Sign - Last 24 Hours 10/15/19 10/15/19 10/15/19 10/15/19 11:00 13:55 15:00 19:15 Temp 98.4 98.2 98.1 98.4 98.2 98.1 Pulse 62 63 78 Resp 16 16 18 B/P (MAP) 99/53 (68) 110/58 (75) 114/64 (81) Pulse Ox 99 96 94 O2 Delivery Room Air Room Air Room Air Room Air 05/25/19 05/25/19 05/25/19 05/25/19 19:35 22:31 23:05 23:31 Temp 98.2 98.2 Pulse 61 Resp 18 B/P (MAP) 112/78 (89) Pulse Ox 93 O2 Delivery Room Air Room Air Room Air Room Air 05/26/19 05/26/19 03:01 07:00 Temp 97.9 98.0 97.9 98.0 Pulse 54 50 Resp 18 18 B/P (MAP) 98/67 (77) 116/71 (86) Pulse Ox 97 99 O2 Delivery Room Air Room Air Intake and Output 05/25/19 05/25/19 05/26/19 14:59 22:59 06:59 Intake Total 490 ml Balance 490 ml NATHANIEL MICHELLE MD May 26, 2019 08:26
--- NOTE | 2019-05-26 09:07 | PDOC ---
Infectious Disease Note Subjective Subjective feeling better though cont to have pain ROS ROS no n/v/d Vital Sign Vital Signs Vital Signs Date Time Temp Pulse Resp B/P (MAP) Pulse Ox O2 Delivery O2 Flow Rate FiO2 05/26/19 07:00 98.0 50 18 116/71 (86) 99 Room Air 98.0 Physical Exam PHYSICAL EXAM GENERAL: Alert, oriented gentleman, not in distress. VITAL SIGNS: Stable HEENT: NAD. NECK: Supple, no JVP, no lymphadenopathy. LUNGS: Clear. HEART: S1, S2 regular. ABDOMEN: Benign. EXTREMITIES: No edema, cyanosis. SKIN: Unremarkable. The patient is neurologically intact. In particular joint, left knee is swollen with some mild tenderness present. There is no erythema. There is no open wound. NEUROLOGIC: The patient is neurologically alert, awake and appropriate. No focal neurologic deficit. Labs Micro Microbiology 05/23/19 Blood Culture - Preliminary, Resulted NO GROWTH AFTER 1 DAY crystal analysis neg Objective Assessment 1. Monoarticular inflammation of the left knee, possibility of infection is very high with mild cell count number, although crystal analysis pending and culture is pending. s/p I and D 2. Slight fever. 3. Leukocytosis. Plan Plan of Care cont antibiotics for now await culture CHERRIE STACY MD May 26, 2019 09:07
[2019-05-26] MEDS: NAPROXEN 500 MG TABLET PO SCH ×2 (09:29→20:41)
[2019-05-26] MEDS: LACTOBACILLUS RHAMNOSUS GG 1 CAPSULE. PO SCH ×2 (09:29→20:41)
[2019-05-26] MEDS: COLCHICINE 0.6 MG TABLET PO SCH ×2 (09:29→20:41)
[2019-05-26] MEDS: CEFEPIME HCL IV Push 1 GM VIAL. IVP SCH ×2 (09:29→20:41)
[2019-05-26 11:00] VITALS: BP 122/69
[2019-05-26] MEDS: VANCOMYCIN PER PHARMACY MC PRN ×2 (12:22→14:32)
[2019-05-26 13:14] LABS: CREATININE 0.9 mg/dL (0.7-1.3); GFR 94.4
[2019-05-26 15:00] VITALS: BP 112/64
[2019-05-26] MEDS: oxyCODONE/APAP 5/325 1 TAB TABLET PO PRN ×2 (16:26→20:43)
[2019-05-26 19:00] VITALS: BP 115/73
[2019-05-26 23:00] VITALS: BP 105/63
[2019-05-27] MEDS: VANCOMYCIN 1.25 GM in IV NORMAL SALINE 250ML 250 ML IV SCH ×2 (00:36→08:32)
[2019-05-27 03:00] VITALS: BP 112/75
[2019-05-27 07:00] VITALS: BP 123/85
[2019-05-27] MEDS: COLCHICINE 0.6 MG TABLET PO SCH (08:30)
[2019-05-27] MEDS: LACTOBACILLUS RHAMNOSUS GG 1 CAPSULE. PO SCH (08:30)
[2019-05-27] MEDS: NAPROXEN 500 MG TABLET PO SCH (08:30)
[2019-05-27] MEDS: oxyCODONE/APAP 5/325 1 TAB TABLET PO PRN (08:31)
[2019-05-27] MEDS: CEFEPIME HCL IV Push 1 GM VIAL. IVP SCH (08:31)
--- NOTE | 2019-05-27 09:02 | PDOC ---
PROGRESS NOTES Chief Complaint Chief Complaint L Knee Pain Left knee septic arthritis History of Present Illness History of Present Illness Mr Kevin is a 38-year-old M who p/w with 1-day history of left knee swelling and pain. The patient denies any trauma. Denies any twisting, turning, any injury. The patient also denies similar episode in the past. The patient did not have any fever other than here he was noted to have 99.6, but denied any fever at home. Denied any nausea, vomiting, diarrhea, chest pain, shortness of breath, abdominal pain, urinary symptoms or bowel symptoms. The patient had a knee aspiration done in the ER, which is showing 55,000 WBC. Uric acid 8.7. His ROM is still very limited. pain is better today. No CP or SOB. Crystal analysis negative. Culture negative, but significant WBC in knee fluid. D/w ID will need at least another day of IV antibiotics. 05/24/2019 Pt was Seen and examined. Today pt denies pain. Denies trauma to the left knee. Reports knee was normal before he went to bed but when he awoke he reports the knee was swollen and painful. Vitals Vitals Vital Signs Date Time Temp Pulse Resp B/P (MAP) Pulse Ox O2 Delivery O2 Flow Rate FiO2 05/27/19 08:31 Room Air 05/27/19 07:00 97.3 46 16 123/85 (98) 97 97.3 Physical Exam Physical Exam GENERAL: Alert, oriented gentleman, not in distress. VITAL SIGNS: Stable HEENT: NAD. NECK: Supple, no JVP, no lymphadenopathy. LUNGS: Clear. HEART: S1, S2 regular. ABDOMEN: Benign. EXTREMITIES: No edema, cyanosis. SKIN: Unremarkable. The patient is neurologically intact. In particular joint, left knee is swollen with some mild tenderness present. There is no erythema. There is no open wound. NEUROLOGIC: The patient is neurologically alert, awake and appropriate. No focal neurologic deficit. General: Alert, Cooperative Heart: Regular rate Lungs: Clear Abdomen: Soft Extremities: Other (there is a left knee effusion and slight warmth. There was no traumatic wound, there is slight blood from the aspiration site on the lateral knee. There is not any focal prepatellar bursitis or bursal swelling, this all seems to be joint swelling/joint effusion. The knee is tender and slightly warm but not erythematous. Distal light touch sensation is intact. Minimal motion to the knee, any motion is painful. Sensory and motor function seem intact but motor function is limited by pain) Skin: No breakdown, No significant lesion Labs LABS Laboratory Tests Test 05/26/19 12:45 Creatinine 0.9 mg/dL (0.7-1.3) Estimated GFR (Cockcroft-Gault) 94.4 Assessment and Plan Assessmemt and Plan Problems Medical Problems: (1) Knee pain, left Status: Acute Comment Review of Relevant I have reviewed the following items imer (where applicable) has been applied. Labs Laboratory Tests Test 05/26/19 12:45 Creatinine 0.9 mg/dL (0.7-1.3) Estimated GFR (Cockcroft-Gault) 94.4 Laboratory Tests Test 05/26/19 12:45 Creatinine 0.9 mg/dL (0.7-1.3) Estimated GFR (Cockcroft-Gault) 94.4 Microbiology 05/23/19 Blood Culture - Preliminary, Resulted NO GROWTH AFTER 3 DAYS 05/23/19 Anaerobic/Aerobic Culture, Resulted Pending 05/23/19 Anaerobic Culture Result 1 (ROMMEL), Resulted Pending 05/23/19 Aerobic Culture - Preliminary, Resulted 05/23/19 Aerobic Culture Result 1 (ROMMEL) - Preliminary, Resulted 05/23/19 Gram Stain - Final, Resulted 05/23/19 Gram Stain Result 1 (ROMMEL) - Final, Resulted 05/23/19 Gram Stain Result 2 (ROMMEL) - Final, Resulted Medications Current Medications Morphine Sulfate (Morphine Sulfate) 4 mg 1X ONCE IV Last administered on 05/23/19at 16:13; Start 05/23/19 at 16:15; Stop 05/23/19 at 16:16; Status DC Sodium Chloride 1,000 ml @ 1,000 mls/hr 1X ONCE IV Last administered on 05/23/19at 16:15; Start 05/23/19 at 16:00; Stop 05/23/19 at 16:59; Status DC Lidocaine HCl 20 ml 1X ONCE IJ Last administered on 05/23/19at 16:15; Start 05/23/19 at 16:30; Stop 05/23/19 at 16:31; Status DC Colchicine (Colcrys) 1.2 mg 1X STAT PO Last administered on 05/23/19at 17:58; Start 05/23/19 at 17:45; Stop 05/23/19 at 17:51; Status DC Ketorolac Tromethamine (Toradol 30mg Vial) 30 mg 1X ONCE IM Last administered on 05/23/19at 17:58; Start 05/23/19 at 17:45; Stop 05/23/19 at 17:51; Status DC Vancomycin HCl (Vanco Per Pharmacy) 1 each PRN DAILY PRN MC SEE COMMENTS Last administered on 05/26/19at 14:32; Start 05/23/19 at 18:15 Naproxen (Naprosyn) 500 mg BID PO Last administered on 05/27/19at 08:30; Start 05/23/19 at 21:00 Acetaminophen/ Hydrocodone Bitart (Lortab 5/325) 1 tab PRN Q6HRS PRN PO MODERATE-SEVERE PAIN; Start 05/23/19 at 18:15; Stop 05/24/19 at 13:33; Status DC Acetaminophen (Tylenol) 500 mg PRN Q6HRS PRN PO MILD PAIN / TEMP; Start 05/23/19 at 18:15 Ondansetron HCl (Zofran) 4 mg PRN Q6HRS PRN IVP NAUSEA/VOMITING; Start 05/23/19 at 18:15 Zolpidem Tartrate (Ambien) 5 mg PRN QHS PRN PO INSOMNIA, MAY REPEAT IN 1HR; Start 05/23/19 at 18:15 Morphine Sulfate (Morphine Sulfate) 2 mg PRN Q2HR PRN IV PAIN Last administered on 05/23/19at 21:05; Start 05/23/19 at 18:15 Clonidine HCl (Catapres) 0.1 mg PRN Q1HR PRN PO HYPERTENSION; Start 05/23/19 at 18:15 Ondansetron HCl (Zofran) 4 mg PRN Q8HRS PRN IV NAUSEA/VOMITING; Start 05/23/19 at 18:15; Stop 05/24/19 at 18:14; Status UNV Morphine Sulfate (Morphine Sulfate) 2 mg PRN Q2HR PRN IV PAIN; Start 05/23/19 at 18:15; Stop 05/24/19 at 18:14; Status UNV Vancomycin HCl 1.75 gm/Sodium Chloride 500 ml @ 250 mls/hr 1X ONCE IV Last administered on 05/23/19at 19:47; Start 05/23/19 at 18:30; Stop 05/23/19 at 20:29; Status DC Colchicine (Colcrys) 0.6 mg DAILY PO ; Start 05/24/19 at 09:00; Stop 05/24/19 at 13:31; Status DC Vancomycin HCl 1 gm/Sodium Chloride 250 ml @ 250 mls/hr Q12H IV Last admin istered on 05/25/19at 09:08; Start 05/24/19 at 08:00; Stop 05/25/19 at 11:06; Status DC Vancomycin HCl (Vancomycin Trough Level) 1 each 1X ONCE MC ; Start 05/25/19 at 07:30; Stop 05/25/19 at 07:31; Status DC Diphenhydramine HCl (Benadryl) 25 mg PRN Q6HRS PRN PO ITCHING Last administered on 05/23/19at 22:40; Start 05/23/19 at 22:30 Influenza Virus Vaccine Quadrival (Afluria Quad 2019-20 (3yr Up) Syringe) 0.5 ml ONCE ONCE VAX IM Last administered on 05/25/19at 09:13; Start 05/24/19 at 09:00; Stop 05/24/19 at 09:05; Status DC Cefepime HCl (Maxipime) 1 gm Q12HR IVP Last administered on 05/27/19at 08:31; Start 05/24/19 at 09:00 Ondansetron HCl (Zofran) 4 mg PRN Q6HRS PRN IV NAUSEA/VOMITING; Start 05/24/19 at 09:15; Stop 05/24/19 at 18:00; Status DC Fentanyl Citrate (Fentanyl 2ml Vial) 25 mcg PRN Q5MIN PRN IV MILD PAIN 1-3; Start 05/24/19 at 09:15; Stop 05/24/19 at 18:00; Status DC Fentanyl Citrate (Fentanyl 2ml Vial) 50 mcg PRN Q5MIN PRN IV MODERATE TO SEVERE PAIN Last administered on 05/24/19at 11:57; Start 05/24/19 at 09:15; Stop 05/24/19 at 18:00; Status DC Morphine Sulfate (Morphine Sulfate) 1 mg PRN Q10MIN PRN IV SEVERE PAIN 7-10; Start 05/24/19 at 09:15; Stop 05/24/19 at 18:00; Status DC Ringer's Solution 1,000 ml @ 30 mls/hr Q24H IV ; Start 05/24/19 at 09:03; Stop 05/24/19 at 21:02; Status DC Hydromorphone HCl (Dilaudid) 0.5 mg PRN Q10MIN PRN IV SEV PAIN, Second choice; Start 05/24/19 at 09:15; Stop 05/24/19 at 18:00; Status DC Prochlorperazine Edisylate (Compazine) 5 mg PACU PRN PRN IV NAUSEA, MRX1; Start 05/24/19 at 09:15; Stop 05/24/19 at 18:00; Status DC Propofol 20 ml @ As Directed STK-MED ONCE IV ; Start 05/24/19 at 11:27; Stop 05/24/19 at 11:27; Status DC Lidocaine HCl (Lidocaine Pf 2% Vial) 5 ml STK-MED ONCE .ROUTE ; Start 05/24/19 at 11:27; Stop 05/24/19 at 11:27; Status DC Ondansetron HCl (Zofran) 4 mg STK-MED ONCE .ROUTE ; Start 05/24/19 at 11:27; Stop 05/24/19 at 11:28; Status DC Dexamethasone Sodium Phosphate (Decadron) 4 mg STK-MED ONCE .ROUTE ; Start 05/24/19 at 11:27; Stop 05/24/19 at 11:28; Status DC Fentanyl Citrate (Fentanyl 2ml Vial) 100 mcg STK-MED ONCE .ROUTE ; Start 05/24/19 at 11:27; Stop 05/24/19 at 11:28; Status DC Midazolam HCl (Versed) 2 mg STK-MED ONCE .ROUTE ; Start 05/24/19 at 11:27; Stop 05/24/19 at 11:28; Status DC Fentanyl Citrate (Fentanyl 2ml Vial) 100 mcg STK-MED ONCE .ROUTE ; Start 05/24/19 at 11:51; Stop 05/24/19 at 11:51; Status DC Epinephrine HCl (Adrenalin) 30 mg STK-MED ONCE .ROUTE Last administered on 05/11 11/27at 12:45; Start 05/24/19 at 11:53; Stop 05/24/19 at 11:53; Status DC Bupivacaine HCl (Sensorcaine Mpf 0.25%) 30 ml STK-MED ONCE .ROUTE Last administered on 05/24/19at 12:44; Start 05/24/19 at 11:53; Stop 05/24/19 at 11:53; Status DC Sodium Chloride (SODIUM CHLORIDE 20ml) 20 ml STK-MED ONCE IJ ; Start 05/24/19 at 12:27; Stop 05/24/19 at 12:27; Status DC Ketorolac Tromethamine (Toradol 30mg Vial) 30 mg STK-MED ONCE .ROUTE ; Start 05/24/19 at 12:46; Stop 05/24/19 at 12:47; Status DC Hydromorphone HCl (Dilaudid) 2 mg STK-MED ONCE .ROUTE ; Start 05/24/19 at 12:48; Stop 05/24/19 at 12:48; Status DC Sevoflurane (Ultane) 60 ml STK-MED ONCE IH ; Start 05/24/19 at 12:57; Stop 05/24/19 at 12:57; Status DC Bupivacaine HCl (Sensorcaine Mpf 0.25%) 30 ml STK-MED ONCE .ROUTE Last administered on 05/24/19at 13:03; Start 05/24/19 at 13:01; Stop 05/24/19 at 13:01; Status DC Colchicine (Colcrys) 0.6 mg BID PO Last administered on 05/27/19at 08:30; Start 05/24/19 at 21:00; Stop 06/07/19 at 20:59 Oxycodone/ Acetaminophen (Percocet 5/325) 1 tab PRN Q4HRS PRN PO MODERATE PAIN; Start 05/24/19 at 13:15 Oxycodone/ Acetaminophen (Percocet 5/325) 2 tab PRN Q4HRS PRN PO SEVERE PAIN Last administered on 05/27/19at 08:31; Start 05/24/19 at 13:45 Vancomycin HCl 1.25 gm/Sodium Chloride 250 ml @ 167 mls/hr Q8H IV Last administered on 05/27/19at 08:32; Start 05/25/19 at 17:00 Lactobacillus Rhamnosus (Culturelle) 1 cap BID PO Last administered on 05/27/19at 08:30; Start 05/25/19 at 21:00 Active Scripts Active [place] 5-325 Tablet (Acetaminophen/Hydrocodone Bitart) 1 Each Tablet 1 Tab PO PRN Q6HRS PRN 3 Days Vitals/I & O Vital Sign - Last 24 Hours 05/26/19 05/26/19 05/26/19 05/26/19 11:00 15:00 19:00 19:40 Temp 98.0 98.0 98.2 98.0 98.0 98.2 Pulse 54 58 66 Resp 20 20 18 B/P (MAP) 122/69 (86) 112/64 (80) 115/73 (87) Pulse Ox 98 99 97 O2 Delivery Room Air Room Air Room Air Room Air 05/26/19 05/26/19 05/27/19 05/27/19 20:43 23:00 00:37 03:00 Temp 97.9 97.9 97.9 97.9 Pulse 58 63 Resp 18 18 B/P (MAP) 105/63 (77) 112/75 (87) Pulse Ox 96 98 O2 Delivery Room Air Room Air Room Air Room Air 05/27/19 05/27/19 05/27/19 07:00 08:00 08:31 Temp 97.3 97.3 Pulse 46 Resp 16 B/P (MAP) 123/85 (98) Pulse Ox 97 O2 Delivery Room Air Room Air Room Air Intake and Output 05/26/19 05/26/19 05/27/19 15:00 23:00 07:00 Intake Total 770 ml 250 ml 200 ml Balance 770 ml 250 ml 200 ml NATHANIEL MICHELLE MD May 27, 2019 09:02
--- NOTE | 2019-05-27 09:27 | PDOC ---
Infectious Disease Note Subjective Subjective feeling better ROS ROS no n/v/d/sob Vital Sign Vital Signs Vital Signs Date Time Temp Pulse Resp B/P (MAP) Pulse Ox O2 Delivery O2 Flow Rate FiO2 05/27/19 08:31 Room Air 05/27/19 07:00 97.3 46 16 123/85 (98) 97 97.3 Physical Exam PHYSICAL EXAM GENERAL: Alert, oriented gentleman, not in distress. VITAL SIGNS: Stable HEENT: NAD. NECK: Supple, no JVP, no lymphadenopathy. LUNGS: Clear. HEART: S1, S2 regular. ABDOMEN: Benign. EXTREMITIES: No edema, cyanosis. SKIN: Unremarkable. The patient is neurologically intact. In particular joint, left knee is swollen with some mild tenderness present. There is no erythema. There is no open wound. NEUROLOGIC: The patient is neurologically alert, awake and appropriate. No focal neurologic deficit. Labs Lab Laboratory Tests Test 05/26/19 12:45 Creatinine 0.9 mg/dL (0.7-1.3) Estimated GFR (Cockcroft-Gault) 94.4 Micro Microbiology 05/23/19 Blood Culture - Preliminary, Resulted NO GROWTH AFTER 1 DAY crystal analysis neg Objective Assessment 1. Monoarticular inflammation of the left knee, possibility of infection is very high with mild cell count number, although crystal analysis pending and culture is pending. s/p I and D 2. Slight fever. 3. Leukocytosis. Plan Plan of Care culture neg so far d/c on po cipro and adey CHERRIE STACY MD May 27, 2019 09:27
[2019-05-27] MEDS ORDERED: HYDR-3164 PO (10:01)
[2019-05-27] MEDS ORDERED: CIPR250T30 PO (10:01)
[2019-05-27] MEDS ORDERED: DOXY100T PO (10:01)
--- NOTE | 2019-05-27 10:20 | PDOC3 ---
Discharge Summary Visit Information Date of Admission: May 23, 2019 Date of Discharge: May 27, 2019 Admitting Diagnosis: Septic arthritis left knee Final Diagnosis Problems Medical Problems: (1) Knee pain, left Status: Acute Brief Hospital Course Allergies Allergies Coded Allergies Type Severity Reaction Last Updated Verified No Known Drug Allergies 11/29/15 No Vital Signs Vital Signs Date Time Temp Pulse Resp B/P (MAP) Pulse Ox O2 Delivery O2 Flow Rate FiO2 05/27/19 09:30 Room Air 05/27/19 07:00 97.3 46 16 123/85 (98) 97 97.3 Lab Results Laboratory Tests Test 05/26/19 12:45 Creatinine 0.9 mg/dL (0.7-1.3) Estimated GFR (Cockcroft-Gault) 94.4 Laboratory Tests Test 05/26/19 12:45 Creatinine 0.9 mg/dL (0.7-1.3) Estimated GFR (Cockcroft-Gault) 94.4 Brief Hospital Course Mr Kevin is a 38-year-old M who p/w with 1-day history of left knee swelling and pain. The patient denies any trauma. Denies any twisting, turning, any injury. The patient also denies similar episode in the past. The patient did not have any fever other than here he was noted to have 99.6, but denied any fever at home. Denied any nausea, vomiting, diarrhea, chest pain, shortness of breath, abdominal pain, urinary symptoms or bowel symptoms. The patient had a knee aspiration done in the ER, which is showing 55,000 WBC. Uric acid 8.7. His ROM is still very limited. pain is better today. No CP or SOB. Crystal analysis negative. Culture negative, but significant WBC in knee fluid. D/w ID will need at least another day of IV antibiotics. Problem list: L Knee Pain Left knee septic arthritis Greater than 30 minutes spent on d/c Discharge Information Condition at Discharge: Improved Follow Up: Weeks (1) Disposition/Orders: D/C to Home Scheduled Ciprofloxacin Hcl (Cipro) 250 Mg Tablet, 500 MG PO BID for Septic arthritis for 10 Days, #40 Can sub with 500mg Tabs #20 Prescribed by: NATHANIEL MICHELLE MD on 05/27/19 1001 Doxycycline Hyclate (Doxycycline Hyclate) 100 Mg Tablet, 100 MG PO BID for Septic arthritis for 10 Days, #20 Can sub with any Doxycycline formulation for patient cost Prescribed by: NATHANIEL MICHELLE MD on 05/27/19 1001 Scheduled PRN Hydrocodone/Apap 5-325 ([place] 5-325 Tablet) 1 Each Tablet, 1 TAB PO PRN Q6HRS PRN for PAIN for 6 Days, #20 Ref 0 Prescribed by: NATHANIEL MICHELLE MD on 05/27/19 1001 NATHANIEL MICHELLE MD May 27, 2019 10:20
--- NOTE | 2019-05-27 10:37 | NUR ---
SS following up with discharge planning. Walker requested for discharge to home. Walker received and provided to pt. Pt's RN notified.
[2019-05-27 11:00] VITALS: BP 122/62
--- NOTE | 2019-05-27 12:08 | NUR ---
Pt discharging home with self care. Discharge instructions and prescriptions discussed with the brass chaser phone. Pt verbalized understanding. IV's removed. Dressing changed. Walker provided. Pt ambulated to main entrance.
[2019-05-27] MEDS ORDERED: DOXYCYCLINE HYCLATE 100 MG TABLET PO SCH (21:00)
[2019-05-27] MEDS ORDERED: CIPROFLOXACIN HCL 250 MG TABLET. PO SCH (21:00)
== END 2019-05-27 11:50 | disposition home or self-care (01) | DRG 550 ==
LOC: ER 15:42 → 4 NORTH 18:06
PROVIDERS: ADMIT Internal Medicine; ATTEND Internal Medicine
PROC: 0S9D4ZZ Drainage of Left Knee Joint, Percutaneous Endoscopic Approach (ICD-10-PCS; principal; 2019-05-23)
DX: M00.9 Pyogenic arthritis, unspecified (principal); M10.9 Gout, unspecified; M11.262 Other chondrocalcinosis, left knee; Z83.3 Family history of diabetes mellitus
CPT/HCPCS: 36415; 73562; 80053; 80202; 82565; 82945; 83605; 84157; 84550; 85025; 87040; 87071; 87075; 89050; 89060; 90471; 90686; 96360; 96361; A7015; C1782; J0171; J0692; J1100; J1170; J1885; J2001; J2250; J2270; J2405; J2704; J3010; J3370; J3490; J7030; J7040; J7050; Q0163; 97110; 97116; 99285-25; G0378

== ENCOUNTER 2019-07-05 13:17 | Inpatient (IN) | payer SELFPAY ==
[~2019-07-05] VITALS: Ht 167.6 cm; Wt 71.2 kg
[~2019-07-05 13:17] MED LIST changes: +CIPR250T30 PO; +DOXY100T PO
[2019-07-05] MEDS ORDERED: LIDOCAINE 2% 20 ML VIAL. IJ STA (13:44)
[2019-07-05] MEDS ORDERED: MORPHINE SULFATE 10 MG/ML VIAL. IV STA (13:46)
[2019-07-05] MEDS ORDERED: IV NORMAL SALINE 1000ML BAG 1,000 ML IV STA (13:46)
--- NOTE | 2019-07-05 13:59 | PHYS DOC ---
Past Medical History Past Medical History: No Pertinent History (LANI CHIANG APRN) Past Surgical History: No Surgical History (LANI CHIANG APRN) Alcohol Use: Heavy Drug Use: None (LANI CHIANG APRN) Adult General Chief Complaint Chief Complaint: KNEE SWELLING [facility] HPI Patient is a 38 year old male who presents with left knee pain has been ongoing for several days. The patient had an oxycodone at 9:00. States his pain has been 10 out of 10 in severity sharp. Denies any trauma to the knee. Saw the patient on May 23 and performed a knee aspiration at that time and admitted patient for septic joint. (LANI CHIANG APRN) Review of Systems Review of Systems Constitutional: Reports fever or chills [] Eyes: Denies change in visual acuity, redness, or eye pain [] HENT: Denies nasal congestion or sore throat [] Respiratory: Denies cough or shortness of breath [] Cardiovascular: No additional information not addressed in HPI [] GI: Denies abdominal pain, nausea, vomiting, bloody stools or diarrhea [] : Denies dysuria or hematuria [] Musculoskeletal: Reports L knee pain. Integument: Denies rash or skin lesions [] Neurologic: Denies headache, focal weakness or sensory changes [] Endocrine: Denies polyuria or polydipsia [] Complete systems were reviewed and found to be within normal limits, except as documented in this note. (LANI CHIANG APRN) Current Medications Current Medications Current Medications Medications (Trade) Dose Ordered Sig/Heidy Start Time Stop Time Status Last Admin Dose Admin Hydromorphone HCl (Dilaudid) 1 mg 1X 07/05/19 16:30 Lidocaine HCl (Lidocaine 1% 20ml Vial) 20 ml 1X STAT 07/05/19 16:19 07/05/19 16:21 DC Morphine Sulfate (Morphine Sulfate) 5 mg 1X STAT 07/05/19 13:46 07/05/19 13:51 DC 07/05/19 14:04 5 MG Sodium Chloride 1,000 ml @ 1,000 mls/hr 1X STAT 07/05/19 13:46 07/05/19 14:45 DC 07/05/19 14:05 1,000 MLS/HR (GEORGIANA MAYA MD) Allergies Allergies Allergies Coded Allergies Type Severity Reaction Last Updated Verified No Known Drug Allergies 11/29/15 No (GEORGIANA MAYA MD) Physical Exam Physical Exam Constitutional: Well developed, well nourished, no acute distress, non-toxic appearance. [] HENT: Normocephalic, atraumatic, bilateral external ears normal, oropharynx moist, no oral exudates, nose normal. [] Eyes: PERRLA, EOMI, conjunctiva normal, no discharge. [] Neck: Normal range of motion, no tenderness, supple, no stridor. [] Cardiovascular:Heart rate regular rhythm, no murmur [] Lungs & Thorax: Bilateral breath sounds clear to auscultation [] Abdomen: Bowel sounds normal, soft, no tenderness, no masses, no pulsatile masses. [] Skin: Warm, dry, no erythema, no rash. [] Back: No tenderness, no CVA tenderness. [] Extremities: No tenderness, no cyanosis, no clubbing, ROM intact, no edema. [] Neurologic: Alert and oriented X 3, normal motor function, normal sensory function, no focal deficits noted. [] Psychologic: Affect normal, judgement normal, mood normal. [] (LANI CHIANG APRN) Current Patient Data Vital Signs Vital Signs Date Time Temp Pulse Resp B/P (MAP) Pulse Ox O2 Delivery O2 Flow Rate FiO2 07/05/19 14:04 16 96 Room Air 07/05/19 13:45 98.9 99 137/91 (106) 98.9 (GEORGIANA MAYA MD) Lab Values Laboratory Tests Test 07/05/19 13:50 White Blood Count 10.3 x10^3/uL (4.0-11.0) Red Blood Count 5.08 x10^6/uL (4.30-5.70) Hemoglobin 15.7 g/dL (13.0-17.5) Hematocrit 45.1 % (39.0-53.0) Mean Corpuscular Volume 89 fL (79-100) Mean Corpuscular Hemoglobin 31 pg (25-35) Mean Corpuscular Hemoglobin Concent 35 g/dL (31-37) Red Cell Distribution Width 13.6 % (11.5-14.5) Platelet Count 274 x10^3/uL (140-400) Neutrophils (%) (Auto) 73 % (31-73) Lymphocytes (%) (Auto) 16 % (24-48) L Monocytes (%) (Auto) 9 % (0-9) Eosinophils (%) (Auto) 2 % (0-3) Basophils (%) (Auto) 1 % (0-3) Neutrophils # (Auto) 7.5 x10^3/uL (1.8-7.7) Lymphocytes # (Auto) 1.6 x10^3/uL (1.0-4.8) Monocytes # (Auto) 0.9 x10^3/uL (0.0-1.1) Eosinophils # (Auto) 0.2 x10^3/uL (0.0-0.7) Basophils # (Auto) 0.1 x10^3/uL (0.0-0.2) Erythrocyte Sedimentation Rate 6 (0-15) Sodium Level 139 mmol/L (136-145) Potassium Level 3.8 mmol/L (3.5-5.1) Chloride Level 100 mmol/L (98-107) Carbon Dioxide Level 27 mmol/L (21-32) Anion Gap 12 (6-14) Blood Urea Nitrogen 17 mg/dL (8-26) Creatinine 0.9 mg/dL (0.7-1.3) Estimated GFR (Cockcroft-Gault) 94.4 BUN/Creatinine Ratio 19 (6-20) Glucose Level 100 mg/dL (70-99) H Lactic Acid Level 1.1 mmol/L (0.4-2.0) Uric Acid 9.7 mg/dL (3.5-7.2) H Calcium Level 8.9 mg/dL (8.5-10.1) Total Bilirubin 0.6 mg/dL (0.2-1.0) Aspartate Amino Transferase (AST) 23 U/L (15-37) Alanine Aminotransferase (ALT) 43 U/L (16-63) Alkaline Phosphatase 125 U/L (46-116) H Total Protein 7.9 g/dL (6.4-8.2) Albumin 4.2 g/dL (3.4-5.0) Albumin/Globulin Ratio 1.1 (1.0-1.7) Laboratory Tests 07/05/19 13:50 Laboratory Tests 07/05/19 13:50 (GEORGIANA MAYA MD) Lab Values Laboratory Tests Test 07/05/19 13:50 White Blood Count 10.3 x10^3/uL (4.0-11.0) Red Blood Count 5.08 x10^6/uL (4.30-5.70) Hemoglobin 15.7 g/dL (13.0-17.5) Hematocrit 45.1 % (39.0-53.0) Mean Corpuscular Volume 89 fL (79-100) Mean Corpuscular Hemoglobin 31 pg (25-35) Mean Corpuscular Hemoglobin Concent 35 g/dL (31-37) Red Cell Distribution Width 13.6 % (11.5-14.5) Platelet Count 274 x10^3/uL (140-400) Neutrophils (%) (Auto) 73 % (31-73) Lymphocytes (%) (Auto) 16 % (24-48) L Monocytes (%) (Auto) 9 % (0-9) Eosinophils (%) (Auto) 2 % (0-3) Basophils (%) (Auto) 1 % (0-3) Neutrophils # (Auto) 7.5 x10^3/uL (1.8-7.7) Lymphocytes # (Auto) 1.6 x10^3/uL (1.0-4.8) Monocytes # (Auto) 0.9 x10^3/uL (0.0-1.1) Eosinophils # (Auto) 0.2 x10^3/uL (0.0-0.7) Basophils # (Auto) 0.1 x10^3/uL (0.0-0.2) Erythrocyte Sedimentation Rate 6 (0-15) Sodium Level 139 mmol/L (136-145) Potassium Level 3.8 mmol/L (3.5-5.1) Chloride Level 100 mmol/L (98-107) Carbon Dioxide Level 27 mmol/L (21-32) Anion Gap 12 (6-14) Blood Urea Nitrogen 17 mg/dL (8-26) Creatinine 0.9 mg/dL (0.7-1.3) Estimated GFR (Cockcroft-Gault) 94.4 BUN/Creatinine Ratio 19 (6-20) Glucose Level 100 mg/dL (70-99) H Lactic Acid Level 1.1 mmol/L (0.4-2.0) Uric Acid 9.7 mg/dL (3.5-7.2) H Calcium Level 8.9 mg/dL (8.5-10.1) Total Bilirubin 0.6 mg/dL (0.2-1.0) Aspartate Amino Transferase (AST) 23 U/L (15-37) Alanine Aminotransferase (ALT) 43 U/L (16-63) Alkaline Phosphatase 125 U/L (46-116) H C-Reactive Protein, Quantitative 13.8 mg/L (0-3.3) H Total Protein 7.9 g/dL (6.4-8.2) Albumin 4.2 g/dL (3.4-5.0) Albumin/Globulin Ratio 1.1 (1.0-1.7) Laboratory Tests 07/05/19 13:50 Laboratory Tests 07/05/19 13:50 (LANI CHIANG APRN) EKG EKG [] (LANI CHIANG APRN) Radiology/Procedures Radiology/Procedures [id number] [place] [address] IMAGING REPORT Signed PATIENT: MANUEL DUMONTACCOUNT: [id number] : 1980 LOCATION: ER AGE: 38 SEX: M EXAM STATUS: REG ER ORD. PHYSICIAN: LANI CHIANG APRN REASON: LLE PAIN AND EDEMA PROCEDURE: VENOUS LOWER EXTREMITY LEFT Left lower extremity venous real time grayscale, color and spectral duplex ultrasound was performed. History: Left lower extremity pain and edema Comparison: None The left common femoral, femoral, and popliteal veins demonstrate anechoic lumina, full compressibility, augmentable waveforms, and cephalad color Doppler flow. The posterior tibial are also patent. Normal flow is also seen in the cephalad portion of the saphenous vein. Impression: No evidence of DVT in the left lower extremity. Electronically signed by: Neymar Bai MD (07/05/2019 3:54 PM) [id number] DICTATED and SIGNED BY: NEYMAR BAI MD DATE: 07/05/19 1554 [][facility] [address] [place], [place] [id number] IMAGING REPORT Signed PATIENT: KATHLEEN DUMONTMARIEACCOUNT: [id number] : 1980 LOCATION: ER AGE: 38 SEX: M EXAM STATUS: REG ER ORD. PHYSICIAN: LANI CHIANG APRN REASON: pain, tenderness, LROM, pain in posterior knee PROCEDURE: KNEE LEFT 3V KNEE LEFT 3V History: Pain and tenderness Comparison: May 23, 2019 Findings: 3 views of the left knee are submitted. No acute fracture or dislocation is identified. There is probable small suprapatellar joint effusion. Medial femoral condylar articular surface appears somewhat more sclerotic. Impression: 1. No acute osseous abnormality is identified by radiographs. There is small suprapatellar joint effusion. Medial femoral condylar articular surface appears somewhat more sclerotic, nonspecific. Electronically signed by: Adela Seo MD (07/05/2019 2:30 PM) [id number] DICTATED and SIGNED BY: ADELA SEO MD DATE: 07/05/19 1430 (LANI CHIANG APRN) Course & Med Decision Making Course & Med Decision Making Pertinent Labs and Imaging studies reviewed. (See chart for details) Will get labs, x-ray, knee aspiration, and give supportive care. Dr. Maya discussed case at [address] Bedolla who accepted admission. Consulted Ortho. Also ordered Indomethacin, and Colchicine. (LANI CHIANG APRN) Course & Med Decision Making ER PHYSICIAN ATTENDING NOTE: I have personally seen and examined the patient, and agree with the history, physical exam, and plan, as documented by mid-level provider. I attempted a knee aspiration was unsuccessful. The anterior edema is minimal, most of the pain is posterior. The patient has almost no range of motion of his knee secondary to pain, exam would be consistent with a septic arthritis except there is not significant anterior or lateral tenderness or significant edema. I spoke with Dr. Nathan, orthopedics, who I have asked to come see the patient. I did review the patient's records from his recent hospitalization where he had a presumed septic arthritis, although cultures and crystals were both negative. 4:30 PM: I spoke with Dr. Nathan after failed arthrocentesis. We discussed the differential diagnosis which includes inflammatory, gouty, and infectious arthritis. Although infectious arthritis cannot be excluded, inflammatory or gouty arthritis are considered more likely at this point. We discussed the plan of management, and was felt that overnight observation, possible repeat atte mpted aspiration in the morning, with treatment with anti-inflammatories was most appropriate at this time. Dr. Nathan will see the patient in the hospital and consult on the patient will be admitted to the hospitalist for further evaluation. (GEORGIANA MAYA MD) Dragon Disclaimer Dragon Disclaimer This electronic medical record was generated, in whole or in part, using a voice recognition dictation system. (LANI CHIANG APRN) Departure Departure Impression: Primary Impression: Arthritis of knee, left Disposition: ADMITTED INPATIENT Admitting Physician: HIMS (LANI CHIANG APRN) Condition: STABLE Referrals: NO PCP (PCP) LANI CHIANG APRN Jul 05, 2019 13:59 GEORGIANA MAYA MD Jul 05, 2019 16:20
[2019-07-05 14:09] LABS: BASO # 0.1 x10^3/uL (0.0-0.2); BASO % 1 % (0-3); EOS # 0.2 x10^3/uL (0.0-0.7); EOS % 2 % (0-3); HEMATOCRIT 45.1 % (39.0-53.0); HEMOGLOBIN 15.7 g/dL (13.0-17.5); LYMPH # 1.6 x10^3/uL (1.0-4.8); LYMPH % 16 % (24-48); MEAN CORPUSCULAR HEMOGLOBIN 31 pg (25-35); MEAN CORPUSCULAR HGB CONC 35 g/dL (31-37); MEAN CORPUSCULAR VOLUME 89 fL (79-100); MONO # 0.9 x10^3/uL (0.0-1.1); MONO % 9 % (0-9); NEUT # 7.5 x10^3/uL (1.8-7.7); NEUT % 73 % (31-73); PLATELET COUNT 274 x10^3/uL (140-400); RED BLOOD COUNT 5.08 x10^6/uL (4.30-5.70); RED CELL DISTRIBUTION WIDTH 13.6 % (11.5-14.5); WHITE BLOOD COUNT 10.3 x10^3/uL (4.0-11.0)
[2019-07-05 14:12] LABS: CALCIUM 8.9 mg/dL (8.5-10.1); CREATININE 0.9 mg/dL (0.7-1.3); GFR 94.4; POTASSIUM 3.8 mmol/L (3.5-5.1)
[2019-07-05 14:17] LABS: ALBUMIN 4.2 g/dL (3.4-5.0); ALBUMIN/GLOBULIN RATIO 1.1 (1.0-1.7); TOTAL BILIRUBIN 0.6 mg/dL (0.2-1.0); TOTAL PROTEIN 7.9 g/dL (6.4-8.2)
--- NOTE | 2019-07-05 14:33 | RAD ---
KNEE LEFT 3V History: Pain and tenderness Comparison: May 23, 2019 Findings: 3 views of the left knee are submitted. No acute fracture or dislocation is identified. There is probable small suprapatellar joint effusion. Medial femoral condylar articular surface appears somewhat more sclerotic. Impression: 1. No acute osseous abnormality is identified by radiographs. There is small suprapatellar joint effusion. Medial femoral condylar articular surface appears somewhat more sclerotic, nonspecific. Electronically signed by: Hemant Oconnor MD (07/05/2019 2:30 PM) [id number]
--- NOTE | 2019-07-05 15:57 | RAD ---
Left lower extremity venous real time grayscale, color and spectral duplex ultrasound was performed. History: Left lower extremity pain and edema Comparison: None The left common femoral, femoral, and popliteal veins demonstrate anechoic lumina, full compressibility, augmentable waveforms, and cephalad color Doppler flow. The posterior tibial are also patent. Normal flow is also seen in the cephalad portion of the saphenous vein. Impression: No evidence of DVT in the left lower extremity. Electronically signed by: Neymar Bai MD (07/05/2019 3:54 PM) [id number]
[2019-07-05] MEDS ORDERED: LIDOCAINE 1% Multi-Dose 20 ML VIAL. INJ STA (16:19)
[2019-07-05] MEDS ORDERED: COLCHICINE 0.6 MG TABLET PO STA (16:29)
[2019-07-05] MEDS ORDERED: HYDROmorphone 2 MG/ML VIAL IVP SCH (16:30)
[2019-07-05] MEDS ORDERED: INDOMETHACIN 25 MG CAPSULE. PO SCH (16:30)
[2019-07-05] MEDS ORDERED: ONDANSETRON PF 4 MG/2 ML VIAL. IV PRN (17:00)
--- NOTE | 2019-07-05 17:07 | PDOC1 ---
History and Physical Date of Admission Date of Admission DATE: 07/05/19 TIME: 17:03 Identification/Chief Complaint Chief Complaint Left knee pain Source Source: Patient History of Present Illness History of Present Illness Mr Kevin is a 38-year-old M who p/w with 1-day history of left knee swelling and pain. The patient denies any trauma. Denies any twisting, turning, any injury. The patient also denies similar episode in the past. The patient did not have any fever other than here he was noted to have 99.6, but denied any fever at home. Denied any nausea, vomiting, diarrhea, chest pain, shortness of breath, abdominal pain, urinary symptoms or bowel symptoms. The patient had a knee aspiration done in the ER 5 weeks ago, which is showing 55,000 WBC. Uric acid 8.7. His ROM is very limited. Pain is worse today. No CP or SOB. Crystal analysis negative. Culture negative, but significant WBC in knee fluid. Possibly gout flare, admitted for inability to ambulate Past Medical History Cardiovascular: No pertinent hx Pulmonary: No pertinent hx GI: No pertinent hx Heme/Onc: No pertinent hx Hepatobiliary: No pertinent hx Psych: No pertinent hx Rheumatologic: No pertinent hx Infectious disease: No pertinent hx Renal/: No pertinent hx Endocrine: No pertinent hx Past Surgical History Past Surgical History: No pertinent history Family History Family History: Diabetes Social History Smoke: No ALCOHOL: none Drugs: None Current Problem List Problem List Problems Medical Problems: (1) Arthritis of knee, left Status: Acute Current Medications Current Medications Current Medications Lidocaine HCl 20 ml 1X STAT IJ Last administered on 07/05/19at 14:05; Start 07/05/19 at 13:44; Stop 07/05/19 at 13:46; Status DC Sodium Chloride 1,000 ml @ 1,000 mls/hr 1X STAT IV Last administered on 07/05/19at 14:05; Start 07/05/19 at 13:46; Stop 07/05/19 at 14:45; Status DC Morphine Sulfate (Morphine Sulfate) 5 mg 1X STAT IV Last administered on 07/05/19at 14:04; Start 07/05/19 at 13:46; Stop 07/05/19 at 13:51; Status DC Hydromorphone HCl (Dilaudid) 1 mg 1X IVP Last administered on 07/05/19at 16:28; Start 07/05/19 at 16:30 Lidocaine HCl (Lidocaine 1% 20ml Vial) 20 ml 1X STAT INJ Last administered on 07/05/19at 16:29; Start 07/05/19 at 16:19; Stop 07/05/19 at 16:21; Status DC Indomethacin (Indocin) 50 mg TID PO ; Start 07/05/19 at 16:30 Colchicine (Colcrys) 1.2 mg 1X STAT PO ; Start 07/05/19 at 16:29; Stop 07/05/19 at 16:34; Status DC Colchicine (Colcrys) 0.6 mg BID PO ; Start 07/05/19 at 21:00 Ondansetron HCl (Zofran) 4 mg PRN Q8HRS PRN IV NAUSEA/VOMITING; Start 07/05/19 at 17:00; Stop 07/06/19 at 16:59 Morphine Sulfate (Morphine Sulfate) 2 mg PRN Q2HR PRN IV PAIN; Start 07/05/19 at 17:00; Stop 07/06/19 at 16:59 Active Scripts Active Doxycycline Hyclate 100 Mg Tablet 100 Mg PO BID 10 Days Can sub with any Doxycycline formulation for patient cost Cipro (Ciprofloxacin Hcl) 250 Mg Tablet 500 Mg PO BID 10 Days Can sub with 500mg Tabs #20 [place] 5-325 Tablet (Acetaminophen/Hydrocodone Bitart) 1 Each Tablet 1 Tab PO PRN Q6HRS PRN 6 Days Allergies Allergies: Coded Allergies: No Known Drug Allergies (Unverified , 11/29/15) ROS General: No: Chills, Night Sweats, Fatigue, Malaise, Appetite, Other PSYCHOLOGICAL ROS: No: Anxiety, Behavioral Disorder, Concentration difficultie, Decreased libido, Depression, Disorientation, Hallucinations, Hostility, Irritablity, Memory difficulties, Mood Swings, Obsessive thoughts, Physical abuse, Sexual abuse, Sleep disturbances, Suicidal ideation, Other Eyes: No Blurry vision, No Decreased vision, No Double vision, No Dry eyes, No Excessive tearing, No Eye Pain, No Itchy Eyes, No Loss of vision, No Photophobia, No Scotomata, No Uses contacts, No Uses glasses, No Other HEENT: No: Heacaches, Visual Changes, Hearing change, Nasal congestion, Nasal discharge, Oral lesions, Sinus pain, Sore Throat, Epistaxis, Sneezing, Snoring, Tinnitus, Vertigo, Vocal changes, Other ALLERGY AND IMMUNOLOGY: No: Hives, Insect Bite Sensitivity, Itchy/Watery Eyes, Nasal Congestion, Post Nasal Drip, Seasonal Allergies, Other Hematological and Lymphatic: No: Bleeding Problems, Blood Clots, Blood Transfusions, Brusing, Night Sweats, Pallor, Swollen Lymph Nodes, Other ENDOCRINE: No: Breast Changes, Galactorrhea, Hair Pattern Changes, Hot Flashes, Malaise/lethargy, Mood Swings, Palpitations, Polydipsia/polyuria, Skin Changes, Temperature Intolerance, Unexpected Weight Changes, Other Breast: No New/Changing Breast Lumps, No Nipple changes, No Nipple discharge, No Other Respiratory: No: Cough, Hemoptysis, Orthopnea, Pleuritic Pain, Shortness of breath, SOB with excertion, Sputum Changes, Stridor, Tachypnea, Wheezing, Other Cardiovascular: No Chest Pain, No Palpitations, No Orthopnea, No Paroxysmal Noc. Dyspnea, No Edema, No Lt Headedness, No Other Gastrointestinal: No Nausea, No Vomiting, No Abdominal Pain, No Diarrhea, No Constipation, No Melena, No Hematochezia, No Other Genitourinary: No Dysuria, No Frequency, No Incontinence, No Hematuria, No Retention, No Discharge, No Urgency, No Pain, No Flank Pain, No Other, No , No , No , No , No , No , No Musculoskeletal: Yes Gait Disturbance, Yes Joint Pain, Yes Joint Stiffness, Yes Joint Swelling; No Muscle Pain, No Muscular Weakness, No Pain In:, No Swelling In:, No Other Neurological: No Behavorial Changes, No Bowel/Bladder ControlChng, No Confusion, No Dizziness, No Gait Disturbance, No Headaches, No Impaired Coord/balance, No Memory Loss, No Numbness/Tingling, No Seizures, No Speech Problems, No Tremors, No Visual Changes, No Weakness, No Other Skin: No Dry Skin, No Eczema, No Hair Changes, No Lumps, No Mole Changes, No Mottling, No Nail Changes, No Pruritus, No Rash, No Skin Lesion Changes, No Other, No Acne Physical Exam General: Alert, Oriented X3, Cooperative, No acute distress HEENT: Atraumatic, PERRLA, EOMI, Mucous membr. moist/pink Lungs: Clear to auscultation, Normal air movement Heart: S1S2, RRR, no thrills, no rubs, no gallops, no murmurs Abdomen: Normal bowel sounds, Soft, No tenderness, No hepatosplenomegaly, No masses Rectal Exam: not examined Extremities: No clubbing, No cyanosis, No edema, Normal pulses, Other (Left knee stiff, warm, no erythema) Skin: No rashes, No breakdown, No significant lesion Neuro: Normal speech, Strength at 5/5 X4 ext, Normal tone, Sensation intact, Cranial nerves 3-12 NL, Reflexes 2+ Psych/Mental Status: Mental status NL, Mood NL Vitals Vitals Vital Signs Date Time Temp Pulse Resp B/P (MAP) Pulse Ox O2 Delivery O2 Flow Rate FiO2 07/05/19 16:28 16 95 Room Air 07/05/19 13:45 98.9 99 137/91 (106) 98.9 Labs Labs Laboratory Tests Test 07/05/19 13:50 White Blood Count 10.3 x10^3/uL (4.0-11.0) Red Blood Count 5.08 x10^6/uL (4.30-5.70) Hemoglobin 15.7 g/dL (13.0-17.5) Hematocrit 45.1 % (39.0-53.0) Mean Corpuscular Volume 89 fL (79-100) Mean Corpuscular Hemoglobin 31 pg (25-35) Mean Corpuscular Hemoglobin Concent 35 g/dL (31-37) Red Cell Distribution Width 13.6 % (11.5-14.5) Platelet Count 274 x10^3/uL (140-400) Neutrophils (%) (Auto) 73 % (31-73) Lymphocytes (%) (Auto) 16 % (24-48) Monocytes (%) (Auto) 9 % (0-9) Eosinophils (%) (Auto) 2 % (0-3) Basophils (%) (Auto) 1 % (0-3) Neutrophils # (Auto) 7.5 x10^3/uL (1.8-7.7) Lymphocytes # (Auto) 1.6 x10^3/uL (1.0-4.8) Monocytes # (Auto) 0.9 x10^3/uL (0.0-1.1) Eosinophils # (Auto) 0.2 x10^3/uL (0.0-0.7) Basophils # (Auto) 0.1 x10^3/uL (0.0-0.2) Erythrocyte Sedimentation Rate 6 (0-15) Sodium Level 139 mmol/L (136-145) Potassium Level 3.8 mmol/L (3.5-5.1) Chloride Level 100 mmol/L (98-107) Carbon Dioxide Level 27 mmol/L (21-32) Anion Gap 12 (6-14) Blood Urea Nitrogen 17 mg/dL (8-26) Creatinine 0.9 mg/dL (0.7-1.3) Estimated GFR (Cockcroft-Gault) 94.4 BUN/Creatinine Ratio 19 (6-20) Glucose Level 100 mg/dL (70-99) Lactic Acid Level 1.1 mmol/L (0.4-2.0) Uric Acid 9.7 mg/dL (3.5-7.2) Calcium Level 8.9 mg/dL (8.5-10.1) Total Bilirubin 0.6 mg/dL (0.2-1.0) Aspartate Amino Transf (AST/SGOT) 23 U/L (15-37) Alanine Aminotransferase (ALT/SGPT) 43 U/L (16-63) Alkaline Phosphatase 125 U/L (46-116) C-Reactive Protein, Quantitative 13.8 mg/L (0-3.3) Total Protein 7.9 g/dL (6.4-8.2) Albumin 4.2 g/dL (3.4-5.0) Albumin/Globulin Ratio 1.1 (1.0-1.7) Laboratory Tests Test 07/05/19 13:50 White Blood Count 10.3 x10^3/uL (4.0-11.0) Red Blood Count 5.08 x10^6/uL (4.30-5.70) Hemoglobin 15.7 g/dL (13.0-17.5) Hematocrit 45.1 % (39.0-53.0) Mean Corpuscular Volume 89 fL (79-100) Mean Corpuscular Hemoglobin 31 pg (25-35) Mean Corpuscular Hemoglobin Concent 35 g/dL (31-37) Red Cell Distribution Width 13.6 % (11.5-14.5) Platelet Count 274 x10^3/uL (140-400) Neutrophils (%) (Auto) 73 % (31-73) Lymphocytes (%) (Auto) 16 % (24-48) Monocytes (%) (Auto) 9 % (0-9) Eosinophils (%) (Auto) 2 % (0-3) Basophils (%) (Auto) 1 % (0-3) Neutrophils # (Auto) 7.5 x10^3/uL (1.8-7.7) Lymphocytes # (Auto) 1.6 x10^3/uL (1.0-4.8) Monocytes # (Auto) 0.9 x10^3/uL (0.0-1.1) Eosinophils # (Auto) 0.2 x10^3/uL (0.0-0.7) Basophils # (Auto) 0.1 x10^3/uL (0.0-0.2) Erythrocyte Sedimentation Rate 6 (0-15) Sodium Level 139 mmol/L (136-145) Potassium Level 3.8 mmol/L (3.5-5.1) Chloride Level 100 mmol/L (98-107) Carbon Dioxide Level 27 mmol/L (21-32) Anion Gap 12 (6-14) Blood Urea Nitrogen 17 mg/dL (8-26) Creatinine 0.9 mg/dL (0.7-1.3) Estimated GFR (Cockcroft-Gault) 94.4 BUN/Creatinine Ratio 19 (6-20) Glucose Level 100 mg/dL (70-99) Lactic Acid Level 1.1 mmol/L (0.4-2.0) Uric Acid 9.7 mg/dL (3.5-7.2) Calcium Level 8.9 mg/dL (8.5-10.1) Total Bilirubin 0.6 mg/dL (0.2-1.0) Aspartate Amino Transf (AST/SGOT) 23 U/L (15-37) Alanine Aminotransferase (ALT/SGPT) 43 U/L (16-63) Alkaline Phosphatase 125 U/L (46-116) C-Reactive Protein, Quantitative 13.8 mg/L (0-3.3) Total Protein 7.9 g/dL (6.4-8.2) Albumin 4.2 g/dL (3.4-5.0) Albumin/Globulin Ratio 1.1 (1.0-1.7) VTE Prophylaxis Ordered VTE Prophylaxis Devices: No VTE Pharmacological Prophylaxi: Yes Assessment/Plan Assessment/Plan A/P: Intractable L Knee Pain - will treat as gout flare, was previously treated as septic arthritis. Consult ortho. 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
[2019-07-05] MEDS ORDERED: KETOROLAC 30 MG/ML VIAL. IVP PRN (17:15)
[2019-07-05 18:15] VITALS: BP 113/84
--- NOTE | 2019-07-05 18:22 | NUR ---
PT STATES THAT HE DOES NOT HAVE ANY PAST MEDICAL HISTORY OTHER THAN SAME ISSUE WITH KNEE ABOUT 6 WEEKS AGO AND DOES NOT TAKE ANY HOME MEDICATIONS OTHER THAN PAIN MEDICATION.
[2019-07-05] MEDS: predniSONE 20 MG TABLET PO SCH (18:38)
[2019-07-05 19:00] VITALS: BP 123/87
[2019-07-05] MEDS: COLCHICINE 0.6 MG TABLET PO SCH (21:37)
[2019-07-05] MEDS: MORPHINE SULFATE 2 MG/ML VIAL. IV PRN (21:42)
[2019-07-05 23:00] VITALS: BP 115/78
[2019-07-06 03:00] VITALS: BP 111/73
[2019-07-06 07:00] VITALS: BP 104/71
[2019-07-06] MEDS: MORPHINE SULFATE 2 MG/ML VIAL. IV PRN ×2 (07:15→12:13)
--- NOTE | 2019-07-06 08:56 | PDOC2 ---
CONSULT Date of Consult Date of Consult DATE: 07/06/19 TIME: 08:52 Reason for Consult Reason for Consult: Left knee pain Referring Physician Referring Physician: Chioma Identification/Chief Complaint Chief Complaint Left knee pain Source Source: Patient History of Present Illness Reason for Visit: Patient is a 38-year-old gentleman who was admitted to the hospital for a similar complaint on his contralateral side recently. He tells me that over the past couple days his left knee has been more sore. He feels the pain in the back, nor else. The pain does not radiate. It is worse as with ambulation and maximal flexion of his knee. No recent accidents or injuries. He does feel like his knee is been a little stiff and may be little swollen as well. He presented to the emergency department and had a dry tap done. He was started on anti- inflammatory and antigout medication he tells me this is helped his pain a lot. He denies any fevers or chills. History and examination conducted with the assistance of an still operator brandy this morning. Past Medical History Cardiovascular: No pertinent hx Pulmonary: No pertinent hx GI: No pertinent hx Heme/Onc: No pertinent hx Hepatobiliary: No pertinent hx Psych: No pertinent hx Rheumatologic: No pertinent hx Infectious disease: No pertinent hx Renal/: No pertinent hx Endocrine: No pertinent hx Past Surgical History Past Surgical History: No pertinent history Family History Family History: Diabetes Social History No ALCOHOL: none Drugs: None Lives: with Family Current Problem List Problem List Problems Medical Problems: (1) Arthritis of knee, left Status: Acute Current Medications Current Medications Current Medications Lidocaine HCl 20 ml 1X STAT IJ Last administered on 07/05/19at 14:05; Start 07/05/19 at 13:44; Stop 07/05/19 at 13:46; Status DC Sodium Chloride 1,000 ml @ 1,000 mls/hr 1X STAT IV Last administered on 07/05/19at 14:05; Start 07/05/19 at 13:46; Stop 07/05/19 at 14:45; Status DC Morphine Sulfate (Morphine Sulfate) 5 mg 1X STAT IV Last administered on 07/05/19at 14:04; Start 07/05/19 at 13:46; Stop 07/05/19 at 13:51; Status DC Hydromorphone HCl (Dilaudid) 1 mg 1X IVP Last administered on 07/05/19at 16:28; Start 07/05/19 at 16:30 Lidocaine HCl (Lidocaine 1% 20ml Vial) 20 ml 1X STAT INJ Last administered on 07/05/19 16:29; Start 07/05/19 at 16:19; Stop 07/05/19 at 16:21; Status DC Indomethacin (Indocin) 50 mg TID PO Last administered on 07/05/19 17:05; Start 07/05/19 at 16:30; Stop 07/05/19 at 17:13; Status DC Colchicine (Colcrys) 1.2 mg 1X STAT PO Last administered on 07/05/19 17:05; Start 07/05/19 at 16:29; Stop 07/05/19 at 16:34; Status DC Colchicine (Colcrys) 0.6 mg BID PO Last administered on 07/05/19at 21:37; Start 07/05/19 at 21:00 Ondansetron HCl (Zofran) 4 mg PRN Q8HRS PRN IV NAUSEA/VOMITING; Start 07/05/19 at 17:00; Stop 07/06/19 at 16:59 Morphine Sulfate (Morphine Sulfate) 2 mg PRN Q2HR PRN IV PAIN Last administered on 07/06/19at 07:15; Start 07/05/19 at 17:00; Stop 07/06/19 at 16:59 Indomethacin (Indocin) 25 mg BIDWMEALS PO ; Start 07/06/19 at 08:00 Ketorolac Tromethamine (Toradol 30mg Vial) 30 mg PRN Q6HRS PRN IVP pain Last administered on 07/05/19at 19:50; Start 07/05/19 at 17:15; Stop 07/07/19 at 17:14 Prednisone (Prednisone) 40 mg DAILY PO Last administered on 07/05/19at 18:38; Start 07/05/19 at 17:15 Active Scripts Active Doxycycline Hyclate 100 Mg Tablet 100 Mg PO BID 10 Days Can sub with any Doxycycline formulation for patient cost Cipro (Ciprofloxacin Hcl) 250 Mg Tablet 500 Mg PO BID 10 Days Can sub with 500mg Tabs #20 [place] 5-325 Tablet (Acetaminophen/Hydrocodone Bitart) 1 Each Tablet 1 Tab PO PRN Q6HRS PRN 6 Days Allergies Allergies: Coded Allergies: No Known Drug Allergies (Unverified , 11/29/15) ROS General: No: Chills, Night Sweats, Fatigue, Malaise, Appetite, Other PSYCHOLOGICAL ROS: No: Anxiety, Behavioral Disorder, Concentration difficultie, Decreased libido, Depression, Disorientation, Hallucinations, Hostility, Irritablity, Memory difficulties, Mood Swings, Obsessive thoughts, Physical abuse, Sexual abuse, Sleep disturbances, Suicidal ideation, Other Eyes: No Blurry vision, No Decreased vision, No Double vision, No Dry eyes, No Excessive tearing, No Eye Pain, No Itchy Eyes, No Loss of vision, No Photophobia, No Scotomata, No Uses contacts, No Uses glasses, No Other HEENT: No: Heacaches, Visual Changes, Hearing change, Nasal congestion, Nasal discharge, Oral lesions, Sinus pain, Sore Throat, Epistaxis, Sneezing, Snoring, Tinnitus, Vertigo, Vocal changes, Other ALLERGY AND IMMUNOLOGY: No: Hives, Insect Bite Sensitivity, Itchy/Watery Eyes, Nasal Congestion, Post Nasal Drip, Seasonal Allergies, Other Hematological and Lymphatic: No: Bleeding Problems, Blood Clots, Blood Transfusions, Brusing, Night Sweats, Pallor, Swollen Lymph Nodes, Other ENDOCRINE: No: Breast Changes, Galactorrhea, Hair Pattern Changes, Hot Flashes, Malaise/lethargy, Mood Swings, Palpitations, Polydipsia/polyuria, Skin Changes, Temperature Intolerance, Unexpected Weight Changes, Other Respiratory: No: Cough, Hemoptysis, Orthopnea, Pleuritic Pain, Shortness of breath, SOB with excertion, Sputum Changes, Stridor, Tachypnea, Wheezing, Other Cardiovascular: No Chest Pain, No Palpitations, No Orthopnea, No Paroxysmal Noc. Dyspnea, No Edema, No Lt Headedness, No Other Gastrointestinal: No Nausea, No Vomiting, No Abdominal Pain, No Diarrhea, No Constipation, No Melena, No Hematochezia, No Other Genitourinary: No Dysuria, No Frequency, No Incontinence, No Hematuria, No Rete ntion, No Discharge, No Urgency, No Pain, No Flank Pain, No Other, No , No , No , No , No , No , No Musculoskeletal: Yes Gait Disturbance, Yes Joint Pain Neurological: No Behavorial Changes, No Bowel/Bladder ControlChng, No Confusion, No Dizziness, No Gait Disturbance, No Headaches, No Impaired Coord/balance, No Memory Loss, No Numbness/Tingling, No Seizures, No Speech Problems, No Tremors, No Visual Changes, No Weakness, No Other Skin: No Dry Skin, No Eczema, No Hair Changes, No Lumps, No Mole Changes, No Mottling, No Nail Changes, No Pruritus, No Rash, No Skin Lesion Changes, No Other, No Acne Physical Exam General: Alert, Oriented X3 HEENT: Atraumatic, EOMI Lungs: Other (respirations are unlabored with symmetric chest rise) Heart: Regular rate Abdomen: Soft, No tenderness Extremities: No edema, Normal pulses Neuro: Normal speech, Strength at 5/5 X4 ext, Sensation intact Psych/Mental Status: Mental status NL, Mood NL MUSCULOSKELETAL: Other (examination of his left lower extremity reveals a mild effusion in his knee. Betadine prep in place over his anterior knee and lateral knee. Range of motion is 0 to about 130. He is tender in his popliteal fossa. No joint line tenderness. No tenderness elsewhere around his knee. Normal knee stability is present.) Vitals VITALS Vital Signs Date Time Temp Pulse Resp B/P (MAP) Pulse Ox O2 Delivery O2 Flow Rate FiO2 07/06/19 08:46 Room Air 07/06/19 07:15 20 96 07/06/19 07:00 98.0 60 104/71 (82) 98.0 Labs Labs Laboratory Tests Test 07/05/19 13:50 White Blood Count 10.3 x10^3/uL (4.0-11.0) Red Blood Count 5.08 x10^6/uL (4.30-5.70) Hemoglobin 15.7 g/dL (13.0-17.5) Hematocrit 45.1 % (39.0-53.0) Mean Corpuscular Volume 89 fL (79-100) Mean Corpuscular Hemoglobin 31 pg (25-35) Mean Corpuscular Hemoglobin Concent 35 g/dL (31-37) Red Cell Distribution Width 13.6 % (11.5-14.5) Platelet Count 274 x10^3/uL (140-400) Neutrophils (%) (Auto) 73 % (31-73) Lymphocytes (%) (Auto) 16 % (24-48) Monocytes (%) (Auto) 9 % (0-9) Eosinophils (%) (Auto) 2 % (0-3) Basophils (%) (Auto) 1 % (0-3) Neutrophils # (Auto) 7.5 x10^3/uL (1.8-7.7) Lymphocytes # (Auto) 1.6 x10^3/uL (1.0-4.8) Monocytes # (Auto) 0.9 x10^3/uL (0.0-1.1) Eosinophils # (Auto) 0.2 x10^3/uL (0.0-0.7) Basophils # (Auto) 0.1 x10^3/uL (0.0-0.2) Erythrocyte Sedimentation Rate 6 (0-15) Sodium Level 139 mmol/L (136-145) Potassium Level 3.8 mmol/L (3.5-5.1) Chloride Level 100 mmol/L (98-107) Carbon Dioxide Level 27 mmol/L (21-32) Anion Gap 12 (6-14) Blood Urea Nitrogen 17 mg/dL (8-26) Creatinine 0.9 mg/dL (0.7-1.3) Estimated GFR (Cockcroft-Gault) 94.4 BUN/Creatinine Ratio 19 (6-20) Glucose Level 100 mg/dL (70-99) Lactic Acid Level 1.1 mmol/L (0.4-2.0) Uric Acid 9.7 mg/dL (3.5-7.2) Calcium Level 8.9 mg/dL (8.5-10.1) Total Bilirubin 0.6 mg/dL (0.2-1.0) Aspartate Amino Transf (AST/SGOT) 23 U/L (15-37) Alanine Aminotransferase (ALT/SGPT) 43 U/L (16-63) Alkaline Phosphatase 125 U/L (46-116) C-Reactive Protein, Quantitative 13.8 mg/L (0-3.3) Total Protein 7.9 g/dL (6.4-8.2) Albumin 4.2 g/dL (3.4-5.0) Albumin/Globulin Ratio 1.1 (1.0-1.7) Laboratory Tests Test 07/05/19 13:50 White Blood Count 10.3 x10^3/uL (4.0-11.0) Red Blood Count 5.08 x10^6/uL (4.30-5.70) Hemoglobin 15.7 g/dL (13.0-17.5) Hematocrit 45.1 % (39.0-53.0) Mean Corpuscular Volume 89 fL (79-100) Mean Corpuscular Hemoglobin 31 pg (25-35) Mean Corpuscular Hemoglobin Concent 35 g/dL (31-37) Red Cell Distribution Width 13.6 % (11.5-14.5) Platelet Count 274 x10^3/uL (140-400) Neutrophils (%) (Auto) 73 % (31-73) Lymphocytes (%) (Auto) 16 % (24-48) Monocytes (%) (Auto) 9 % (0-9) Eosinophils (%) (Auto) 2 % (0-3) Basophils (%) (Auto) 1 % (0-3) Neutrophils # (Auto) 7.5 x10^3/uL (1.8-7.7) Lymphocytes # (Auto) 1.6 x10^3/uL (1.0-4.8) Monocytes # (Auto) 0.9 x10^3/uL (0.0-1.1) Eosinophils # (Auto) 0.2 x10^3/uL (0.0-0.7) Basophils # (Auto) 0.1 x10^3/uL (0.0-0.2) Erythrocyte Sedimentation Rate 6 (0-15) Sodium Level 139 mmol/L (136-145) Potassium Level 3.8 mmol/L (3.5-5.1) Chloride Level 100 mmol/L (98-107) Carbon Dioxide Level 27 mmol/L (21-32) Anion Gap 12 (6-14) Blood Urea Nitrogen 17 mg/dL (8-26) Creatinine 0.9 mg/dL (0.7-1.3) Estimated GFR (Cockcroft-Gault) 94.4 BUN/Creatinine Ratio 19 (6-20) Glucose Level 100 mg/dL (70-99) Lactic Acid Level 1.1 mmol/L (0.4-2.0) Uric Acid 9.7 mg/dL (3.5-7.2) Calcium Level 8.9 mg/dL (8.5-10.1) Total Bilirubin 0.6 mg/dL (0.2-1.0) Aspartate Amino Transf (AST/SGOT) 23 U/L (15-37) Alanine Aminotransferase (ALT/SGPT) 43 U/L (16-63) Alkaline Phosphatase 125 U/L (46-116) C-Reactive Protein, Quantitative 13.8 mg/L (0-3.3) Total Protein 7.9 g/dL (6.4-8.2) Albumin 4.2 g/dL (3.4-5.0) Albumin/Globulin Ratio 1.1 (1.0-1.7) Images Images X-rays were interpreted by myself. Reports reviewed. Ultrasound report was reviewed. No DVT, no degenerative changes or fractures seen Assessment/Plan Assessment/Plan Given his good improvement from the anti-inflammatory medicine, I think this very likely a gout flare. I did review the prior admission information and culture reports which were negative. I think this most likely a gout flare. Patient was admitted due to inability to ambulate and for pain. We will continue to monitor his clinical situation today. ROSINA BATES II, MD Jul 06, 2019 08:56
[2019-07-06] MEDS: predniSONE 20 MG TABLET PO SCH (09:59)
[2019-07-06] MEDS: COLCHICINE 0.6 MG TABLET PO SCH ×2 (09:59→20:31)
[2019-07-06] MEDS: INDOMETHACIN 25 MG CAPSULE. PO SCH ×2 (10:00→16:43)
--- NOTE | 2019-07-06 10:30 | PDOC ---
[employer] PROGRESS NOTE Chief Complaint Chief Complaint Left knee pain History of Present Illness History of Present Illness 07/06/19 Pt seen and examined while in bed. Pt resting comfortably. Vitals/I&O Vitals/I&O: Vital Signs Date Time Temp Pulse Resp B/P (MAP) Pulse Ox O2 Delivery O2 Flow Rate FiO2 07/06/19 08:46 Room Air 07/06/19 07:15 20 96 07/06/19 07:00 98.0 60 104/71 (82) 98.0 I & O 07/05/19 07/05/19 07/06/19 14:59 22:59 06:59 Intake Total 1180 ml 0 ml Balance 1180 ml 0 ml Physical Exam General: Alert, Cooperative, No acute distress Heart: Regular rate, No murmurs Lungs: Clear, Other (No respiratory distress) Abdomen: Normal bowel sounds, Soft, No tenderness Extremities: No clubbing, No cyanosis, No edema, Normal pulses Skin: Other (No rashes or significant lesions on visible skin) Labs Labs: Laboratory Tests Test 07/05/19 13:50 White Blood Count 10.3 x10^3/uL (4.0-11.0) Red Blood Count 5.08 x10^6/uL (4.30-5.70) Hemoglobin 15.7 g/dL (13.0-17.5) Hematocrit 45.1 % (39.0-53.0) Mean Corpuscular Volume 89 fL (79-100) Mean Corpuscular Hemoglobin 31 pg (25-35) Mean Corpuscular Hemoglobin Concent 35 g/dL (31-37) Red Cell Distribution Width 13.6 % (11.5-14.5) Platelet Count 274 x10^3/uL (140-400) Neutrophils (%) (Auto) 73 % (31-73) Lymphocytes (%) (Auto) 16 % (24-48) Monocytes (%) (Auto) 9 % (0-9) Eosinophils (%) (Auto) 2 % (0-3) Basophils (%) (Auto) 1 % (0-3) Neutrophils # (Auto) 7.5 x10^3/uL (1.8-7.7) Lymphocytes # (Auto) 1.6 x10^3/uL (1.0-4.8) Monocytes # (Auto) 0.9 x10^3/uL (0.0-1.1) Eosinophils # (Auto) 0.2 x10^3/uL (0.0-0.7) Basophils # (Auto) 0.1 x10^3/uL (0.0-0.2) Erythrocyte Sedimentation Rate 6 (0-15) Sodium Level 139 mmol/L (136-145) Potassium Level 3.8 mmol/L (3.5-5.1) Chloride Level 100 mmol/L (98-107) Carbon Dioxide Level 27 mmol/L (21-32) Anion Gap 12 (6-14) Blood Urea Nitrogen 17 mg/dL (8-26) Creatinine 0.9 mg/dL (0.7-1.3) Estimated GFR (Cockcroft-Gault) 94.4 BUN/Creatinine Ratio 19 (6-20) Glucose Level 100 mg/dL (70-99) Lactic Acid Level 1.1 mmol/L (0.4-2.0) Uric Acid 9.7 mg/dL (3.5-7.2) Calcium Level 8.9 mg/dL (8.5-10.1) Total Bilirubin 0.6 mg/dL (0.2-1.0) Aspartate Amino Transf (AST/SGOT) 23 U/L (15-37) Alanine Aminotransferase (ALT/SGPT) 43 U/L (16-63) Alkaline Phosphatase 125 U/L (46-116) C-Reactive Protein, Quantitative 13.8 mg/L (0-3.3) Total Protein 7.9 g/dL (6.4-8.2) Albumin 4.2 g/dL (3.4-5.0) Albumin/Globulin Ratio 1.1 (1.0-1.7) Review of Systems Review of Systems: Neurologic: Denies headache Cardiovascular: Denies chest pain Assessment and Plan Assessmemt and Plan Problems Medical Problems: (1) Arthritis of knee, left Status: Acute Intractable L Knee Pain Elevated CRP Unable to walk Hyperuricemia PLAN - Rocephin 1 gram IV q 24 hours - Consult orthopedics - Labs - PT/OT Comment Review of Relevant I have reviewed the following items imer (where applicable) has been applied. Medications: Current Medications Medications (Trade) Dose Ordered Sig/Heidy Route PRN Reason Start Time Stop Time Status Last Admin Dose Admin Lidocaine HCl 20 ml 1X STAT IJ 07/05/19 13:44 07/05/19 13:46 DC 07/05/19 14:05 Sodium Chloride 1,000 ml @ 1,000 mls/hr 1X STAT IV 07/05/19 13:46 07/05/19 14:45 DC 07/05/19 14:05 Morphine Sulfate (Morphine Sulfate) 5 mg 1X STAT IV 07/05/19 13:46 07/05/19 13:51 DC 07/05/19 14:04 Hydromorphone HCl (Dilaudid) 1 mg 1X IVP 07/05/19 16:30 07/05/19 16:28 Lidocaine HCl (Lidocaine 1% 20ml Vial) 20 ml 1X STAT INJ 07/05/19 16:19 07/05/19 16:21 DC 07/05/19 16:29 Indomethacin (Indocin) 50 mg TID PO 07/05/19 16:30 07/05/19 17:13 DC 07/05/19 17:05 Colchicine (Colcrys) 1.2 mg 1X STAT PO 07/05/19 16:29 07/05/19 16:34 DC 07/05/19 17:05 Colchicine (Colcrys) 0.6 mg BID PO 07/05/19 21:00 07/06/19 09:59 Morphine Sulfate (Morphine Sulfate) 2 mg PRN Q2HR PRN IV PAIN 07/05/19 17:00 07/06/19 16:59 07/06/19 07:15 Indomethacin (Indocin) 25 mg BIDWMEALS PO 07/06/19 08:00 07/06/19 10:00 Ketorolac Tromethamine (Toradol 30mg Vial) 30 mg PRN Q6HRS PRN IVP pain 07/05/19 17:15 07/07/19 17:14 07/05/19 19:50 Prednisone (Prednisone) 40 mg DAILY PO 07/05/19 17:15 07/06/19 09:59 CARLEEN MAY III DO Jul 06, 2019 10:30
[2019-07-06 11:00] VITALS: BP 106/70
[2019-07-06] MEDS ORDERED: cefTRIAXone IV Push 1 GM VIAL. IVP SCH (12:00)
[2019-07-06 15:00] VITALS: BP 110/68
--- NOTE | 2019-07-06 15:57 | NUR ---
SW following for discharge planning. Discussed with RN, pt from home. RN advised pt will likely have one more day then discharge. Pt will be followed by [facility] for self pay status. SW will continue to follow.
[2019-07-06 19:00] VITALS: BP 104/70
[2019-07-06 23:00] VITALS: BP 108/66
[2019-07-07 03:00] VITALS: BP 112/69
[2019-07-07] MEDS ORDERED: LOPERAMIDE 2 MG CAPSULE PO PRN (03:30)
[2019-07-07] MEDS ORDERED: LOPERAMIDE 2 MG CAPSULE PO ONE (04:00)
[2019-07-07 07:00] VITALS: BP 106/65
[2019-07-07] MEDS: predniSONE 20 MG TABLET PO SCH (08:50)
[2019-07-07] MEDS: INDOMETHACIN 25 MG CAPSULE. PO SCH (08:50)
[2019-07-07] MEDS: COLCHICINE 0.6 MG TABLET PO SCH (08:50)
--- NOTE | 2019-07-07 09:55 | PDOC ---
ORTHO PROGRESS NOTES Subjective Pain better, still posterior pain. No new complaints Vitals Vital Signs Date Time Temp Pulse Resp B/P (MAP) Pulse Ox O2 Delivery O2 Flow Rate FiO2 07/07/19 07:00 98.3 86 18 106/65 (79) 97 Room Air 98.3 Labs Laboratory Tests Test 07/05/19 13:50 White Blood Count 10.3 x10^3/uL (4.0-11.0) Red Blood Count 5.08 x10^6/uL (4.30-5.70) Hemoglobin 15.7 g/dL (13.0-17.5) Hematocrit 45.1 % (39.0-53.0) Mean Corpuscular Volume 89 fL (79-100) Mean Corpuscular Hemoglobin 31 pg (25-35) Mean Corpuscular Hemoglobin Concent 35 g/dL (31-37) Red Cell Distribution Width 13.6 % (11.5-14.5) Platelet Count 274 x10^3/uL (140-400) Neutrophils (%) (Auto) 73 % (31-73) Lymphocytes (%) (Auto) 16 % (24-48) Monocytes (%) (Auto) 9 % (0-9) Eosinophils (%) (Auto) 2 % (0-3) Basophils (%) (Auto) 1 % (0-3) Neutrophils # (Auto) 7.5 x10^3/uL (1.8-7.7) Lymphocytes # (Auto) 1.6 x10^3/uL (1.0-4.8) Monocytes # (Auto) 0.9 x10^3/uL (0.0-1.1) Eosinophils # (Auto) 0.2 x10^3/uL (0.0-0.7) Basophils # (Auto) 0.1 x10^3/uL (0.0-0.2) Erythrocyte Sedimentation Rate 6 (0-15) Sodium Level 139 mmol/L (136-145) Potassium Level 3.8 mmol/L (3.5-5.1) Chloride Level 100 mmol/L (98-107) Carbon Dioxide Level 27 mmol/L (21-32) Anion Gap 12 (6-14) Blood Urea Nitrogen 17 mg/dL (8-26) Creatinine 0.9 mg/dL (0.7-1.3) Estimated GFR (Cockcroft-Gault) 94.4 BUN/Creatinine Ratio 19 (6-20) Glucose Level 100 mg/dL (70-99) Lactic Acid Level 1.1 mmol/L (0.4-2.0) Uric Acid 9.7 mg/dL (3.5-7.2) Calcium Level 8.9 mg/dL (8.5-10.1) Total Bilirubin 0.6 mg/dL (0.2-1.0) Aspartate Amino Transf (AST/SGOT) 23 U/L (15-37) Alanine Aminotransferase (ALT/SGPT) 43 U/L (16-63) Alkaline Phosphatase 125 U/L (46-116) C-Reactive Protein, Quantitative 13.8 mg/L (0-3.3) Total Protein 7.9 g/dL (6.4-8.2) Albumin 4.2 g/dL (3.4-5.0) Albumin/Globulin Ratio 1.1 (1.0-1.7) Notes A and A left knee has less erythema and effusion today; effusion minimal Assessment and Plan d/w caron Longo to D/C my contact info given to patient and family ROSINA BATES II, MD Jul 07, 2019 09:55
--- NOTE | 2019-07-07 11:02 | SNU/HH DC ---
DISCHARGE WITH HOME HEALTH DISCHARGE INFORMATION: Final Diagnosis: Problems Medical Problems: (1) Arthritis of knee, left Status: Acute Condition on Discharge: Stable CODE STATUS: Code Status: Full HOME HEALTH: Face to Face: I certify this patient is under my care and that I, or a nurse practitioner or physician's supply assistant working with me, had a face to face encounter that meets the physician face to face encounter requirements with this patient on []. Medical Complications: Other (foot wound) RN For Eval/Treatment: Yes Physical Therapy For: Evalulation/Treatment Occupational Therapy For: Evaluation/Treatment Home Health Aide For: Self-care CRIME SCENE TECHNICIAN For: Community Resources Pt Meets Homebound Status: Poor coordination w/ amb. POST DISCHARGE ORDERS: Activity Instructions for Disc: Activity as tolerated, Avoid exertion Weight Bearing Status after Di: No restrictions DIET AFTER DISCHARGE: ADA FOLLOW-UP: Follow up with: Dr. Nathan as needed. Follow Up With: Primary Care Physician in 1-2 weeks, or as needed. TREATMENT/EQUIPMENT ORDERS: Adaptive Equipment Issued: Crutches CERTIFICATION STATEMENT: Certification Statement: Certification Statement: Based on the above finding, I certify that this patient is confined to the home and needs intermittent snf care, physical therapy and/or speech therapy, or continues to need occupational therapy.~ This patient is under my care, and I have initiated the establishment of the plan of care.~ This patient will be followed by myself or a community physician who will periodically review the plan of care. Home Meds Active Scripts Doxycycline Hyclate (DOXYCYCLINE HYCLATE) 100 Mg Tablet, 100 MG PO BID for Septic arthritis for 10 Days, #20 TAB Can sub with any Doxycycline formulation for patient cost Prov:NATHANIEL MICHELLE MD 05/27/19 Ciprofloxacin Hcl (CIPRO) 250 Mg Tablet, 500 MG PO BID for Septic arthritis for 10 Days, #40 TAB Can sub with 500mg Tabs #20 Prov:NATHANIEL MICHELLE MD 05/27/19 Hydrocodone/Apap 5-325 (NORCO 5-325 TABLET) 1 Each Tablet, 1 TAB PO PRN Q6HRS P RN for PAIN for 6 Days, #20 TAB 0 Refills Prov:NATHANIEL MICHELLE MD 05/27/19 CARLEEN MAY III, DO Jul 07, 2019 11:02
[2019-07-07 11:07] VITALS: BP 104/59
--- NOTE | 2019-07-07 11:19 | PDOC ---
[employer] PROGRESS NOTE Chief Complaint Chief Complaint Left knee pain History of Present Illness History of Present Illness 07/07/19 Pt seen and examined while in bed. Says pain is a 6/10. Pt resting comfortably. Talked with ortho at bedside about plan. Discussed case with RN. Chart reviewed. Vitals/I&O Vitals/I&O: Vital Signs Date Time Temp Pulse Resp B/P (MAP) Pulse Ox O2 Delivery O2 Flow Rate FiO2 07/07/19 11:07 98.1 60 18 104/59 (74) 100 Room Air 98.1 I & O 07/06/19 07/06/19 07/07/19 15:00 23:00 07:00 Intake Total 600 ml 0 ml 50 ml Balance 600 ml 0 ml 50 ml Physical Exam Physical Exam: HEENT: nose midline, no scleral icterus General: Alert, Cooperative, No acute distress Heart: Regular rate, No murmurs Lungs: Clear, Other (No respiratory distress) Abdomen: Normal bowel sounds, Soft Extremities: No clubbing, No cyanosis Review of Systems Review of Systems: GI: Denies abdominal pain General: Denies fever Assessment and Plan Assessmemt and Plan Problems Medical Problems: (1) Arthritis of knee, left Status: Acute Intractable L Knee Pain Elevated CRP Unable to walk Hyperuricemia PLAN - Discontinue antibiotics - Medrol dose pack - Colchicine - Pain medication - Start allopurinol in a week after acute symptoms resolve - Prepare to discharge today Comment Review of Relevant I have reviewed the following items imer (where applicable) has been applied. Medications: Current Medications Medications (Trade) Dose Ordered Sig/Heidy Route PRN Reason Start Time Stop Time Status Last Admin Dose Admin Ceftriaxone Sodium (Rocephin) 1 gm Q24H IVP 07/06/19 12:00 07/06/19 12:13 Loperamide HCl (Imodium) 4 mg 1X ONCE PO 07/07/19 04:00 07/07/19 04:01 DC 07/07/19 03:33 Loperamide HCl (Imodium) 2 mg PRN Q15MIN PRN PO DIARRHEA 07/07/19 03:30 07/07/19 08:50 CASTLEHALL K III DO Jul 07, 2019 11:19
--- NOTE | 2019-07-07 11:35 | NUR ---
Discharge Note: [facility] Discharge instructions and discharge home medications reviewed with Patient and a copy given. All questions have been answered and understanding verbalized. The following instructions and handouts were given: Discharge instructions, new prescriptions and follow up recommendations. Discontinued lines and drains: Peripheral IV discontinued intact. Patient discharged to Home or Self Care with Spouse via Crutches/Walker off unit by RN.
--- NOTE | 2019-07-12 10:14 | DS ---
DATE OF DISCHARGE: 07/07/2019 ADMISSION DIAGNOSIS: Arthritis of the left knee. DISCHARGE DIAGNOSIS: Resolving arthritis, suspect gout. HOSPITAL COURSE: The patient is a pleasant 38-year-old male who presented with left knee that was swollen and erythematous. We consulted Orthopedics. They did an arthrocentesis that showed probable gout. We placed him on colchicine and his symptoms improved dramatically and we discharged to home with prescription for colchicine, Medrol Dosepak and some Lortab. I gave him a prescription for allopurinol. DISPOSITION: Home. ACTIVITY: As tolerated. DIET: Low sodium. MEDICATIONS: Please see the MRAD. TOTAL TIME: 32 minutes. CARLEEN MAY DO DR: DARRYL/cheryl JOB#: [id number] / [id number]
== END 2019-07-07 11:38 | disposition home or self-care (01) | DRG 554 ==
LOC: ER 13:17 → 5 SOUTH 16:33 → OBSVTOIN 07-06 11:31
PROVIDERS: ADMIT Internal Medicine; ATTEND Internal Medicine
DX: M10.9 Gout, unspecified (principal); M17.12 Unilateral primary osteoarthritis, left knee; M11.9 Crystal arthropathy, unspecified; Z83.3 Family history of diabetes mellitus; Z79.899 Other long term (current) drug therapy
CPT/HCPCS: 36415; 73562; 80053; 83605; 84550; 85025; 85651; 86140; 87040; 93971; 96361; 96374; 96375; G0378; G0379; J0696; J1170; J1885; J2001; J2270; J7030; J7512; 99285-25